=== PATIENT | male | born 1940 | race Caucasian/White ===

== ENCOUNTER 2017-11-12 19:59 | Emergency (ER) | payer MEDICARE, OTHER ==
[~2017-11-12] VITALS: Ht 182.9 cm; Wt 70.8 kg
[~2017-11-12 19:59] MED LIST: HYDROCODONE-AP1 EAC1 PO; HYDROCODONE-AP1 EAC5 PO; LISINOPRIL10 MG PO; PANTOPRAZOLE SO40 MG PO; SENNA-DOCUSATE1 EAC2; TAMSULOSIN HCL0.4 MG PO; TEMAZEPAM15 MG PO; Z ERYTHROMYCIN PO; Z TRIBENZOR; Z.0.ASPIR 8181 MG PO
== END 2017-11-12 21:45 | disposition home or self-care (01) ==
LOC: FSED 19:59
DX: R33.9 Retention of urine, unspecified (principal); N40.1 Benign prostatic hyperplasia with lower urinary tract symptoms; I10 Essential (primary) hypertension; Z85.038 Personal history of other malignant neoplasm of large intestine
CPT/HCPCS: 51700; 81003; 99283

== ENCOUNTER 2018-11-04 08:05 | Emergency (ER) | payer MEDICARE ==
[~2018-11-04] VITALS: Ht 190.5 cm; Wt 70.8 kg
--- OUTSIDE RECORDS SUMMARY | 2018-11-04 08:09 | XMS REPORT | Summary of Care ---
Author Author [facility] [place] Organization [facility] [place] Address Unknown Phone Unavailable Encounter HQ Encntr_alias(FIN) [id number] Date(s): 08/25/16 - 08/25/16 [facility] [place] [address] [place] [address] [phone] Discharge Disposition: Home or Self Care Attending Physician: Jude Tinoco DO Vital Signs No data available for this section Problem List No data available for this section Allergies, Adverse Reactions, Alerts No data available for this section Medications No data available for this section Results No data available for this section Immunizations No data available for this section Procedures No data available for this section Social History No data available for this section Assessment and Plan No data available for this section
--- OUTSIDE RECORDS SUMMARY | 2018-11-04 08:09 | XMS REPORT | Summary of Care ---
Author Author [facility] Organization [facility] Address Unknown Phone Unavailable Encounter LINH Kendall(AILYN) [id number] Date(s): 12/03/17 - 12/03/[address] [facility] [address] [place] [address]- [phone] Encounter Diagnosis Benign prostatic hyperplasia with lower urinary tract symptoms (Final) - 12/12/17 Bladder-neck obstruction (Final) - Other retention of urine (Final) - Dorsalgia, unspecified (Final) - Unspecified asthma, uncomplicated (Final) - Anemia, unspecified (Final) - Diaphragmatic hernia without obstruction or gangrene (Final) - Gastro-esophageal reflux disease without esophagitis (Final) - Essential (primary) hypertension (Final) - Major depressive disorder, single episode, unspecified (Final) - Atherosclerotic heart disease of [place] coronary artery without angina pectoris (Final) - Cardiac arrhythmia, unspecified (Final) - Polyneuropathy, unspecified (Final) - Anxiety disorder, unspecified (Final) - Personal history of other malignant neoplasm of large intestine (Final) - Personal history of antineoplastic chemotherapy (Final) - nursing home (current) use of aspirin (Final) - Personal history of nicotine dependence (Final) - Discharge Disposition: Home or Self Care Attending Physician: Jeremiah Freitas MD Referring Physician: Jeremiah Freitas MD Vital Signs 1 2 3 Most recent to oldest [Reference Range]: 180.34 cm (11/25/17 2:28 PM) Height 136/62 mmHg (12/03/17 1:30 PM) 140/60 mmHg (12/03/17 12:30 PM) 162/90 mmHg *HI* (12/03/17 10:45 AM) Blood Pressure [90-140/60-90 mmHg] 16 BRMIN (12/03/17 10:45 AM) 19 BRMIN (12/03/17 10:30 AM) 20 BRMIN (12/03/17 10:15 AM) Respiratory Rate [14-20 BRMIN] 87 bpm (12/03/17 6:55 AM) 84 bpm (11/25/17 2:29 PM) Peripheral Pulse Rate [60-100 bpm] 69.545 kg (11/25/17 2:28 PM) Weight 21.38 m2 (11/25/17 2:28 PM) Body Mass Index Problem List Condition Effective Dates Status Health Status Informant Anxiety(Confirmed) Active BPH (benign Active prostatic hyperplasia)(Confirm ed) BBB (bundle branch Active block)(Confirmed) SOB (shortness of Active breath)(Confirmed)1 GERD Active (gastroesophageal reflux disease)(Confirmed) HTN Active (hypertension)(Confi rmed) Colon Resolved cancer(Confirmed) 1with anxiety Allergies, Adverse Reactions, Alerts Substance Reaction Severity Status Cipro Active Augmentin Active Medications Align 4 mg, PO, Daily, 0 Refill(s) Start Date: 11/25/17 Status: Ordered ANES albuterol 0.083% inhalation solution 2.49 mg, Route: NEB, Q20Min, Dosing Weight 69.545, kg, PRN Wheezing, Priority: S TAT, Start date: 12/03/17 10:33:00 CDT, Duration: 30 day, Stop date: 01/02/18 10 :32:00 CDT Start Date: 12/03/17 Stop Date: 12/03/17 Status: Discontinued ANES dexamethasone 4 mg, Route: IVP, ONCE, Dosing Weight 69.545, kg, PRN Nausea & Vomiting, Start date: 12/03/17 10:33:00 CDT Start Date: 12/03/17 Stop Date: 12/03/17 Status: Discontinued ANES fentaNYL 25 microgram, Route: IVP, Q5Min, Dosing Weight 69.545, kg, PRN Pain Score 4-6, P riority: Routine, Start date: 12/03/17 10:33:00 CDT, Duration: 4 doses or times, Stop date: Limited # of times Start Date: 12/03/17 Stop Date: 12/03/17 Status: Discontinued ANES fentaNYL 50 microgram, Route: IVP, Q5Min, Dosing Weight 69.545, kg, PRN Pain Score 7-10, Priority: Routine, Start date: 12/03/17 10:33:00 CDT, Duration: 2 doses or times , Stop date: Limited # of times Start Date: 12/03/17 Stop Date: 12/03/17 Status: Discontinued ANES flumazenil 0.2 mg, Route: IVP, PRN, Dosing Weight 69.545, kg, PRN Benzodiazepine Reversal, Initial dose, Start date: 12/03/17 10:33:00 CDT, Duration: 30 day, Stop date: 10:32:00 CDT Start Date: 12/03/17 Stop Date: 12/03/17 Status: Discontinued ANES naloxone 0.4 mg, Route: IVP, Q2MIN, Dosing Weight 69.545, kg, PRN Narcotic Reversal, Star t date: 12/03/17 10:33:00 CDT, Duration: 8 doses or times, Stop date: Limited # of times Start Date: 12/03/17 Stop Date: 12/03/17 Status: Discontinued ANES ondansetron 4 mg, Route: IVP, ONCE, Dosing Weight 69.545, kg, PRN Nausea & Vomiting, Start date: 12/03/17 10:33:00 CDT Start Date: 12/03/17 Stop Date: 12/03/17 Status: Completed ANES oxyCODONE 5 mg, Route: PO, Drug form: LIQ, Q4H, Dosing Weight 69.545, kg, PRN Pain Score 7 -10, Start date: 12/03/17 10:33:00 CDT, Duration: 30 day, Stop date: 01/02/18 10 :32:00 CDT Start Date: 12/03/17 Stop Date: 12/03/17 Status: Discontinued ANES oxyCODONE 2.5 mg, Route: PO, Drug form: LIQ, Q4H, Dosing Weight 69.545, kg, PRN Pain Score 4-6, Start date: 12/03/17 10:33:00 CDT, Duration: 30 day, Stop date: 01/02/18 1 0:32:00 CDT Start Date: 12/03/17 Stop Date: 12/03/17 Status: Discontinued aspirin 81 mg tablet, chewable 81 mg=1 tab, CHEW, Daily, 0 Refill(s) Start Date: 11/25/17 Status: Ordered Bactrim DS 800 mg- 160 mg oral tablet 1 tab, PO, BID, # 14 tab, 0 Refill(s) Start Date: 12/03/17 Stop Date: 12/10/17 Status: Ordered belladonna-opium 16.2 mg-30 mg rectal suppository 1 supp, Route: AZ, Dosing Weight 69.545, kg, Q6H, PRN Bladder Spasm, Start date: 12/03/17 10:18:00 CDT, Duration: 30 day, Stop date: 01/02/18 10:17:00 CDT Start Date: 12/03/17 Stop Date: 12/03/17 Status: Discontinued ePHEDrine (ANES) Route: IV, Drug form: INJ, ONCE, Stop date: 12/03/17 10:08:00 CDT Start Date: 12/03/17 Stop Date: 12/03/17 Status: Completed fentaNYL (ANES) Route: IV, Drug form: INJ, ONCE, Stop date: 12/03/17 10:03:00 CDT Start Date: 12/03/17 Stop Date: 12/03/17 Status: Completed glycopyrrolate (ANES) Route: IV, Drug form: INJ, ONCE, Stop date: 12/03/17 10:15:00 CDT Start Date: 12/03/17 Stop Date: 12/03/17 Status: Completed hydrochlorothiazide-losartan 12.5 mg-100 mg oral tablet 1 tab, PO, Daily, 0 Refill(s) Start Date: 11/25/17 Status: Ordered hydromorphone 0.3 mg, Route: IVP, Q3H, Dosing Weight 69.545, kg, PRN Pain Score 4-6, Start ryan e: 12/03/17 10:18:00 CDT, Duration: 30 day, Stop date: 01/02/18 10:17:00 CDT Start Date: 12/03/17 Stop Date: 12/03/17 Status: Discontinued Lactated Ringers Injection IV (ANES) 1000 mL Route: IV, Total Volume: 1,000, Start date: 12/03/17 9:12:00 CDT, Stop date: 10:12:00 CDT Start Date: 12/03/17 Stop Date: 12/03/17 Status: Completed Lactated Ringers Injection IV 1000 mL 1,000 mL, Rate: 25 ml/hr, Infuse over: 40 hr, Route: IV, Dosing Weight 69.545 kg , Total Volume: 1,000, Start date: 12/03/17 7:41:00 CDT, Duration: 30 day, Stop date: 01/02/18 7:40:00 CDT, 1.87, m2 Start Date: 12/03/17 Stop Date: 12/03/17 Status: Discontinued levofloxacin (ANES) 5 mg Route: IV, Drug form: INJ, Start date: 12/03/17 9:26:00 CDT, Stop date: 12/03/17 10:26:00 CDT Start Date: 12/03/17 Stop Date: 12/03/17 Status: Completed lidocaine (ANES) Route: IV, Drug form: INJ, ONCE, Stop date: 12/03/17 10:03:00 CDT Start Date: 12/03/17 Stop Date: 12/03/17 Status: Completed multivitamin Daily, 0 Refill(s) Start Date: 11/25/17 Status: Ordered neostigmine (ANES) Route: IV, Drug form: INJ, ONCE, Stop date: 12/03/17 10:15:00 CDT Start Date: 12/03/17 Stop Date: 12/03/17 Status: Completed pantoprazole 20 mg oral enteric coated tablet 20 mg=1 tab, PO, Daily, 0 Refill(s) Start Date: 11/25/17 Status: Ordered propofol (ANES) Route: IV, Drug form: INJ, ONCE, Stop date: 12/03/17 10:03:00 CDT Start Date: 12/03/17 Stop Date: 12/03/17 Status: Completed rocuronium (ANES) Route: IV, Drug form: INJ, ONCE, Stop date: 12/03/17 10:03:00 CDT Start Date: 12/03/17 Stop Date: 12/03/17 Status: Completed tamsulosin 0.4 mg oral capsule 0.4 mg=1 cap, PO, Daily, 0 Refill(s) Start Date: 11/25/17 Status: Ordered temazepam 30 mg oral capsule 30 mg=1 cap, PO, Bedtime, PRN Sleep, # 14 cap, 0 Refill(s) Start Date: 11/25/17 Stop Date: 12/09/17 Status: Ordered Zofran ODT 4 mg, Route: PO, Drug form: TABDIS, ONCE, Dosing Weight 69.545, kg, Start date: 12/03/17 11:48:00 CDT, Stop date: 12/03/17 11:48:00 CDT Start Date: 12/03/17 Stop Date: 12/03/17 Status: Completed Results ELECTROLYTES Most recent to 1 oldest [Reference Range]: Sodium Lvl [135-145 138 mEq/L mEq/L] (11/25/17 2:48 PM) Potassium Lvl 4.8 mEq/L [3.5-5.1 mEq/L] (11/25/17 2:48 PM) Chloride Lvl [95-109 101 mEq/L mEq/L] (11/25/17 2:48 PM) CO2 [24-32 mEq/L] 30 mEq/L (11/25/17 2:48 PM) AGAP [10.0-20.0 11.8 mEq/L mEq/L] (11/25/17 2:48 PM) CHEM PANEL Most recent to 1 oldest [Reference Range]: Creatinine Lvl 1.55 mg/dL [0.50-1.40 mg/dL] *HI* (11/25/17 2:48 PM) eGFR 43 mL/min/1.73m2 1 *NA* (11/25/17 2:48 PM) BUN [7-22 mg/dL] 15 mg/dL (11/25/17 2:48 PM) Glucose Lvl [70-99 102 mg/dL mg/dL] *HI* (11/25/17 2:48 PM) Calcium Lvl 9.2 mg/dL [8.5-10.5 mg/dL] (11/25/17 2:48 PM) 1Result Comment: The eGFR is calculated using the CKD-EPI formula. In most young, healthy individuals the eGFR will be >90 mL/min/1.73m2. The eGFR declines with age. An eGFR of 60-89 may be normal in some populations, particularly the elderly, for whom the CKD-EPI formula has not been extensively validated. Use of the eGFR is not recommended in the following populations: Individuals with unstable creatinine concentrations, including patients and those with serious co-morbid conditions. Patients with extremes in muscle mass or diet. The data above are obtained from the National Kidney Disease Education Program ( NKDEP) which additionally recommends that when the eGFR is used in patients with extremes of body mass index for purposes of drug dosing, the eGFR should be mul tiplied by the estimated BMI. URINE AND STOOL Most recent to 1 oldest [Reference Range]: UA Turbidity [Clear] Clear (11/25/17 2:48 PM) UA Color [Yellow] Yellow *NA* (11/25/17 2:48 PM) UA pH [5.0-8.0] 5.0 (11/25/17 2:48 PM) UA Spec Grav 1.011 [<=1.030] (11/25/17 2:48 PM) UA Glucose [Negative Negative mg/dL mg/dL] *NA* (11/25/17 2:48 PM) UA Blood [Negative] Moderate *ABN* (11/25/17 2:48 PM) UA Ketones [Negative Negative mg/dL mg/dL] *NA* (11/25/17 2:48 PM) UA Protein [Negative Negative mg/dL mg/dL] (11/25/17 2:48 PM) UA Urobilinogen <=1.0 mg/dL [0.1-1.0 mg/dL] *NA* (11/25/17 2:48 PM) UA Bili [Negative] Negative *NA* (11/25/17 2:48 PM) UA Leuk Est Large [Negative] *ABN* (11/25/17 2:48 PM) UA Nitrite Negative [Negative] (11/25/17 2:48 PM) UA WBC [0-5 /HPF] 11 /HPF *HI* (11/25/17 2:48 PM) UA RBC [0-2 /HPF] 4 /HPF *HI* (11/25/17 2:48 PM) UA Sq Epi [Few /LPF] Occasional /LPF *NA* (11/25/17 2:48 PM) HEMATOLOGY Most recent to 1 oldest [Reference Range]: WBC [3.7-10.4 K/CMM] 7.5 K/CMM (11/25/17 2:48 PM) RBC [4.70-6.10 3.66 M/CMM M/CMM] *LOW* (11/25/17 2:48 PM) Hgb [14.0-18.0 g/dL] 11.3 g/dL *LOW* (11/25/17 2:48 PM) Hct [42.0-54.0 %] 33.1 % *LOW* (11/25/17 2:48 PM) MCV [80.0-94.0 fL] 90.5 fL (11/25/17 2:48 PM) MCH [27.0-31.0 pg] 30.9 pg (11/25/17 2:48 PM) MCHC [32.0-36.0 34.2 g/dL g/dL] (11/25/17 2:48 PM) RDW [11.5-14.5 %] 14.0 % (11/25/17 2:48 PM) MPV [7.4-10.4 fL] 8.4 fL (11/25/17 2:48 PM) Platelet [133-450 367 K/CMM K/CMM] (11/25/17 2:48 PM) Segs [45.0-75.0 %] 61.8 % (11/25/17 2:48 PM) Lymphocytes 23.2 % [20.0-40.0 %] (11/25/17 2:48 PM) Monocytes [2.0-12.0 12.4 % %] *HI* (11/25/17 2:48 PM) Eosinophils [0.0-4.0 1.2 % %] (11/25/17 2:48 PM) Basophils [0.0-1.0 1.4 % %] *HI* (11/25/17 2:48 PM) Neutrophils # 4.6 K/CMM [1.5-8.1 K/CMM] (11/25/17 2:48 PM) Lymphocytes # 1.7 K/CMM [1.0-5.5 K/CMM] (11/25/17 2:48 PM) Monocytes # [0.0-0.8 0.9 K/CMM K/CMM] *HI* (11/25/17 2:48 PM) Eosinophils # 0.1 K/CMM [0.0-0.5 K/CMM] (11/25/17 2:48 PM) Basophils # [0.0-0.2 0.1 K/CMM K/CMM] (11/25/17 2:48 PM) PT [12.0-14.7 14.1 seconds seconds] (11/25/17 2:48 PM) INR [0.85-1.17] 1.09 (11/25/17 2:48 PM) PTT [22.9-35.8 39.6 seconds seconds] *HI* (11/25/17 2:48 PM) Microbiology Reports TEST: Culture: Urine STATUS: Auth (Verified) BODY SITE: SOURCE: Urine, Clean Catch COLLECTED DATE/TIME: 11/25/17 2:48 PM FINAL REPORT <10,000 CFU/mL Skin Brigette Immunizations No data available for this section Procedures Procedure Date Related Diagnosis Body Site Status Appendectomy 2010 Completed Cholecystectomy 2010 Completed Colon operation 2010 Completed CTR - Carpal tunnel release Completed Operation Completed Tonsillectomy Completed Social History Social History Type Response Alcohol Past Smoking Status Former smoker; Type: Cigarettes; Exposure to Tobacco Smoke None; Cigarette Smoking Last 365 Days No; Reg Smoking Cessation Counseling No entered on: 12/03/17 Assessment and Plan No data available for this section
--- OUTSIDE RECORDS SUMMARY | 2018-11-04 08:09 | XMS REPORT | Summary of Care ---
Author Author [facility] [place] Organization [facility] [place] Address Unknown Phone Unavailable Encounter HQ Encntr_alifreida(FIN) [id number] Date(s): 03/10/17 - 03/10/17 [facility] [place] [address] [place] [address] [phone] Final: Radiculopathy, lumbar region Final: Spinal stenosis, lumbar region without neurogenic claudication Final: Other intervertebral disc degeneration, lumbar region Discharge Disposition: Home or Self Care Attending Physician: Bettina Daugherty MD Vital Signs No data available for this [...]
--- OUTSIDE RECORDS SUMMARY | 2018-11-04 08:09 | XMS REPORT | Summary of Care ---
Author Author [facility] [place] Organization [facility] Address Unknown Phone Unavailable Encounter HQ Encntr_alias(FIN) [id number] Date(s): 12/18/14 - 12/18/14 [facility] [address] [place] [id number] [phone] Discharge Disposition: Home Attending Physician: Jeremiah Freitas MD Vital Signs No data available for [...]
--- OUTSIDE RECORDS SUMMARY | 2018-11-04 08:09 | XMS REPORT | Continuity of Care Document ---
Author Author [facility] Address Unknown Phone Unavailable Care Team Providers Care Behavioral Health Specialist Name Role Phone [employer] Unavailable Unavailable Problems Problem Status Onset Date Classification Date Reported Comments Source Benign prostatic hyperplasia with lower urinary tract symptoms 12/13/2017 06/22/2018 [facility] UNK Active 11/17/2017 [facility] M60.9 - "MYOSITIS, UNSPECIFIED" Active 08/20/2016 [facility] 788.20 - RETENTION OF UR 600.01 - BPH W Active 11/21/2014 [facility] Final: Radiculopathy, lumbar region 03/13/2017 [facility] Final: Spinal stenosis, lumbar region without neurogenic claudication 03/13/2017 [facility] Final: Other intervertebral disc degeneration, lumbar region 03/13/2017 [facility] Bladder-neck obstruction 06/22/2018 [facility] Other retention of urine 06/22/2018 [facility] Dorsalgia, unspecified 06/22/2018 [facility] Unspecified asthma, uncomplicated 06/22/2018 [facility] Anemia, unspecified 06/22/2018 [facility] Diaphragmatic hernia without obstruction or gangrene 06/22/2018 [facility] Gastro-esophageal reflux disease without esophagitis 06/22/2018 [facility] Essential hypertension 06/22/2018 [facility] Major depressive disorder, single episode, unspecified 06/22/2018 [facility] 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 06/22/2018 [facility] Cardiac arrhythmia, unspecified 06/22/2018 [facility] Polyneuropathy, unspecified 06/22/2018 [facility] Anxiety disorder, unspecified 06/22/2018 [facility] Personal history of other malignant neoplasm of large intestine 06/22/2018 [facility] Personal history of antineoplastic chemotherapy 06/22/2018 [facility] long term care social worker use of aspirin 06/22/2018 [facility] Personal history of nicotine dependence 06/22/2018 [facility] Anxiety Active Problem 06/22/2018 [facility] BPH (Confirmed) Active Problem 06/22/2018 [facility] BBB (Confirmed) Active Problem 06/22/2018 [facility] SOB (Confirmed)1 Active Problem 06/22/2018 with anxiety [facility] GERD (Confirmed) Active Problem 06/22/2018 [facility] HTN (Confirmed) Active Problem 06/22/2018 [facility] Colon cancer Resolved Problem 06/22/2018 [facility] Medications Medication Details Route Status Patient Instructions Ordering Provider Order Date Source Zofrhung ODT 4 mg, Route: PO, Drug form: TABDIS, ONCE, Dosing Weight 69.545, kg, Start date: 12/03/17 11:48:00 CDT, Stop date: 12/03/17 11:48:00 CDT Inactive 2017 [facility] Dexamethasone 4 mg, Route: IVP, ONCE, Dosing Weight 69.545, kg, PRN Nausea & Vomiting, Start date: 12/03/17 10:33:00 CDT Inactive 2017 [facility] Ondansetron 4 mg, Route: IVP, ONCE, Dosing Weight 69.545, kg, PRN Nausea & Vomiting, Start date: 12/03/17 10:33:00 CDT Inactive 2017 [facility] Oxycodone 5 mg, Route: PO, Drug form: LIQ, Q4H, Dosing Weight 69.545, kg, PRN Pain Score 7-10, Start date: 12/03/17 10:33:00 CDT, Duration: 30 day, Stop date: 01/02/18 10:32:00 CDT Inactive 2017 [facility] Fentanyl 25 microgram, Route: IVP, Q5Min, Dosing Weight 69.545, kg, PRN Pain Score 4-6, Priority: Routine, Start date: 12/03/17 10:33:00 CDT, Duration: 4 doses or times, Stop date: Limited # of times Inactive 2017 [facility] Albuterol 0.83 MG/ML Inhalant Solution 2.49 mg, Route: NEB, Q20Min, Dosing Weight 69.545, kg, PRN Wheezing, Priority: STAT, Start date: 12/03/17 10:33:00 CDT, Duration: 30 day, Stop date: 01/02/18 10:32:00 CDT Inactive 2017 [facility] Naloxone 0.4 mg, Route: IVP, Q2MIN, Dosing Weight 69.545, kg, PRN Narcotic Reversal, Start date: 12/03/17 10:33:00 CDT, Duration: 8 doses or times, Stop date: Limited # of times Inactive 2017 [facility] Flumazenil 0.2 mg, Route: IVP, PRN, Dosing Weight 69.545, kg, PRN Benzodiazepine Reversal, Initial dose, Start date: 12/03/17 10:33:00 CDT, Duration: 30 day, Stop date: 01/02/18 10:32:00 CDT Inactive 2017 [facility] Sulfamethoxazole 800 MG / Trimethoprim 160 MG Oral Tablet [Bactrim] 1 tab, PO, BID, # 14 tab, 0 Refill(s) Active 2017 [facility] Hydromorphone 0.3 mg, Route: IVP, Q3H, Dosing Weight 69.545, kg, PRN Pain Score 4-6, Start date: 12/03/17 10:18:00 CDT, Duration: 30 day, Stop date: 01/02/18 10:17:00 CDT Inactive 2017 [facility] Belladonna Alkaloids 16.2 MG / Opium 30 MG Rectal Suppository 1 supp, Route: MD, Dosing Weight 69.545, kg, Q6H, PRN Bladder Spasm, Start date: 12/03/17 10:18:00 CDT, Duration: 30 day, Stop date: 01/02/18 10:17:00 CDT Inactive 2017 [facility] neostigmine (ANES) Route: IV, Drug form: INJ, ONCE, Stop date: 12/03/17 10:15:00 CDT Inactive 2017 [facility] glycopyrrolate (ANES) Route: IV, Drug form: INJ, ONCE, Stop date: 12/03/17 10:15:00 CDT Inactive 2017 [facility] ePHEDrine (ANES) Route: IV, Drug form: INJ, ONCE, Stop date: 12/03/17 10:08:00 CDT Inactive 2017 [facility] rocuronium (ANES) Route: IV, Drug form: INJ, ONCE, Stop date: 12/03/17 10:03:00 CDT Inactive 2017 [facility] propofol (ANES) Route: IV, Drug form: INJ, ONCE, Stop date: 12/03/17 10:03:00 CDT Inactive 2017 [facility] lidocaine (ANES) Route: IV, Drug form: INJ, ONCE, Stop date: 12/03/17 10:03:00 CDT Inactive 2017 [facility] fentaNYL (ANES) Route: IV, Drug form: INJ, ONCE, Stop date: 12/03/17 10:03:00 CDT Inactive 2017 [facility] levofloxacin (ANES) 5 mg Route: IV, Drug form: INJ, Start date: 12/03/17 9:26:00 CDT, Stop date: 12/03/17 10:26:00 CDT Inactive 2017 [facility] Lactated Ringers Injection IV (ANES) 1000 mL Route: IV, Total Volume: 1,000, Start date: 12/03/17 9:12:00 CDT, Stop date: 12/03/17 10:12:00 CDT Inactive 2017 [facility] Calcium Chloride 0.0014 MEQ/ML / Potassium Chloride 0.004 MEQ/ML / Sodium Chloride 0.103 MEQ/ML / Sodium Lactate 0.028 MEQ/ML Injectable Solution 1,000 mL, Rate: 25 ml/hr, Infuse over: 40 hr, Route: IV, Dosing Weight 69.545 kg, Total Volume: 1,000, Start date: 12/03/17 7:41:00 CDT, Duration: 30 day, Stop date: 01/02/18 7:40:00 CDT, 1.87, m2 Inactive 2017 [facility] tamsulosin 0.4 mg oral capsule 0.4 mg=1 cap, PO, Daily, 0 Refill(s) Active 11/25/2017 [facility] Hydrochlorothiazide 12.5 MG / Losartan Potassium 100 MG Oral Tablet 1 tab, PO, Daily, 0 Refill(s) Active 11/25/2017 [facility] Aspirin 81 MG Chewable Tablet 81 mg=1 tab, CHEW, Daily, 0 Refill(s) Active 11/25/2017 [facility] pantoprazole 20 mg oral enteric coated tablet 20 mg=1 tab, PO, Daily, 0 Refill(s) Active 11/25/2017 [facility] temazepam 30 mg oral capsule 30 mg=1 cap, PO, Bedtime, PRN Sleep, # 14 cap, 0 Refill(s) Active 11/25/2017 [facility] multivitamin Daily, 0 Refill(s) Active 11/25/2017 [facility] Align 4 mg, PO, Daily, 0 Refill(s) Active 11/25/2017 [facility] Olmesartan Med/Amlodipine/Hctz (Tribenzor 40-5-12.5 Mg Tablet) 1 Each Tablet, Daily Active 08/13/2016 [facility] Sennosides/Docusate Sodium (Senna-Docusate Sodium Tablet) 1 Each Tablet, 5 2 At Bedtime Active 08/13/2016 [facility] Erythromycin Base (Erythromycin) 500 Mg Tablet, 500 Mg Oral Twice A Day Active 09/04/2011 [facility] Hydrocodone Bit/Acetaminophen (Hydrocodone-Apap 10-650 Mg Tab) 1 Each Tablet, 1 Each Oral Active 09/04/2011 [facility] Hydrocodone Bit/Acetaminophen (Hydrocodone-Apap 10-325 Tablet) 1 Each Tablet, 1 Each Oral Three Times A Day Active 09/04/2011 [facility] Aspirin (Aspir 81) 81 Mg Tablet. Daily Active [facility] Lisinopril 10 Mg Tablet Daily Active [facility] Pantoprazole Sodium (Protonix) 40 Mg Tablet. Daily Active [facility] Tamsulosin Hcl 0.4 Mg Cap.er.24h Daily Active [facility] Temazepam 15 Mg Capsule Daily Active [facility] Allergies, Adverse Reactions, Alerts Substance Category Reaction Severity Reaction type Status Date Reported Comments Source Ciprofloxacin NAUSEA Mild Allergy to Substance Active 08/13/2016 [facility] Cipro Assertion Drug allergy Active [facility] Augmentin Assertion Drug allergy Active [facility] Immunizations No Data Provided for This Section Results Order Name Results Value Reference Range Date Interpretation Comments Source CHEM PANEL eGFR 43 11/25/2017 Result Comment: The eGFR is calculated using the [...] from the National Kidney Disease Education Program (NKDEP) which additionally recommends that when the eGFR is used in patients with extremes of body mass index for purposes of drug dosing, the eGFR should be multiplied by the estimated BMI. [facility] CHEM PANEL Chloride Lvl 101 95 - 109 11/25/2017 [facility] CHEM PANEL Calcium Lvl 9.2 8.5 - 10.5 11/25/2017 [facility] CHEM PANEL CO2 30 24 - 32 11/25/2017 [facility] CHEM PANEL Potassium Lvl 4.8 3.5 - 5.1 11/25/2017 [facility] CHEM PANEL Sodium Lvl 138 135 - 145 11/25/2017 [facility] CHEM PANEL BUN 15 7 - 22 11/25/2017 [facility] CHEM PANEL Glucose Lvl 102 70 - 99 11/25/2017 [facility] CHEM PANEL Creatinine Lvl 1.55 0.50 - 1.40 11/25/2017 [facility] CHEM PANEL AGAP 11.8 10.0 - 20.0 11/25/2017 [facility] HEMATOLOGY PTT 39.6 22.9 - 35.8 11/25/2017 [facility] HEMATOLOGY PT 14.1 12.0 - 14.7 11/25/2017 [facility] HEMATOLOGY INR 1.09 0.85 - 1.17 11/25/2017 [facility] HEMATOLOGY Basophils 1.4 0.0 - 1.0 11/25/2017 [facility] HEMATOLOGY Lymphocytes # 1.7 1.0 - 5.5 11/25/2017 [facility] HEMATOLOGY Neutrophils # 4.6 1.5 - 8.1 11/25/2017 [facility] Monocytes # 0.9 0.0 - 0.8 11/25/2017 [facility] HEMATOLOGY Segs 61.8 45.0 - 75.0 11/25/2017 [facility] Basophils # 0.1 0.0 - 0.2 11/25/2017 [facility] HEMATOLOGY Eosinophils 1.2 0.0 - 4.0 11/25/2017 [facility] HEMATOLOGY Monocytes 12.4 2.0 - 12.0 11/25/2017 [facility] HEMATOLOGY Eosinophils # 0.1 0.0 - 0.5 11/25/2017 [facility] HEMATOLOGY Lymphocytes 23.2 20.0 - 40.0 11/25/2017 [facility] MPV 8.4 7.4 - 10.4 11/25/2017 [facility] HEMATOLOGY RDW 14.0 11.5 - 14.5 11/25/2017 [facility] HEMATOLOGY Platelet 367 133 - 450 11/25/2017 [facility] MCV 90.5 80.0 - 94.0 11/25/2017 [facility] MCHC 34.2 32.0 - 36.0 11/25/2017 [facility] MCH 30.9 27.0 - 31.0 11/25/2017 [facility] HEMATOLOGY RBC 3.66 4.70 - 6.10 11/25/2017 [facility] WBC 7.5 3.7 - 10.4 11/25/2017 [facility] Hgb 11.3 14.0 - 18.0 11/25/2017 [facility] Hct 33.1 42.0 - 54.0 11/25/2017 [facility] URINE AND STOOL UA RBC 4 0 - 2 11/25/2017 [facility] URINE AND STOOL UA Urobilinogen <=1.0 mg/dL 0.1 - 1.0 11/25/2017 [facility] URINE AND STOOL UA Leuk Est Large *ABN* (11/25/17 2:48 PM) Negative 11/25/2017 [facility] URINE AND STOOL UA Sq Epi Occasional /LPF Few /LPF 11/25/2017 [facility] URINE AND STOOL UA WBC 11 0 - 5 11/25/2017 [facility] URINE AND STOOL UA Turbidity Clear (11/25/17 2:48 PM) Clear 11/25/2017 [facility] URINE AND STOOL UA Color Yellow *NA* (11/25/17 2:48 PM) Yellow 11/25/2017 [facility] URINE AND STOOL UA Spec Grav 1.011 <=1.030 11/25/2017 [facility] URINE AND STOOL UA pH 5.0 5.0 - 8.0 11/25/2017 [facility] URINE AND STOOL UA Nitrite Negative (11/25/17 2:48 PM) Negative 11/25/2017 [facility] URINE AND STOOL UA Blood Moderate *ABN* (11/25/17 2:48 PM) Negative 11/25/2017 [facility] URINE AND STOOL UA Bili Negative *NA* (11/25/17 2:48 PM) Negative 11/25/2017 [facility] URINE AND STOOL UA Ketones Negative mg/dL Negative mg/dL 11/25/2017 [facility] URINE AND STOOL UA Protein Negative mg/dL Negative mg/dL 11/25/2017 [facility] URINE AND STOOL UA Glucose Negative mg/dL Negative mg/dL 11/25/2017 [facility] Culture: Urine <10,000 CFU/mL Skin Brigette 11/25/2017 [facility] Pathology Reports No Data Provided for This Section Diagnostic Reports Report Value Date Source Spine lumbar wo contrast MRI Spine lumbar wo contrast MRI 03/10/2017 4:36 PM [employer] 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 TECHNIQUE: Sagittal T1, sagittal T2 with fat saturation, axial T1 and axial T2 images were obtained. No intravenous gadolinium was given. FINDINGS: The conus medullaris terminates at the L2 level. T12 left posterior vertebral body margin 9.6 mm lesion with hyperintense STIR signal, hypointense T1 signal is present. T12-L1: Unremarkable. L1-L2: Unremarkable. L2-L3: Right extra foraminal annular fissure is present. Right foraminal disc osteophyte complex with mild right foraminal stenosis. No central canal stenosis. L3-L4: Scattered annular fissures are present. 2 mm disc bulge is seen without significant central canal stenosis. Mild right foraminal stenosis due to disc osteophyte complex encroachment. L4-L5: Scattered annular fissures are present. 2 mm posterior disc osteophyte complex without significant thecal sac stenosis. Mild bilateral foraminal stenosis due to disc osteophyte complex encroachment without significant mass effect on the exiting L4 nerve roots. L5-S1: Posterior annular fissure with 3 mm posterior disc osteophyte complex and mild right foraminal stenosis. No significant thecal sac stenosis. IMPRESSION: 1. Several levels of disc degenerative disease and spondylosis without significant central canal stenosis. L2-L3 and L3-L4 mild right foraminal stenosis, L4-L5 mild bilateral foraminal stenosis. 2. T12 vertebral body lesion may represent atypical osseous hemangioma. Osseous metastasis is less likely. 4-6 month follow-up MRI may be obtained to assess stability. 03/10/2017 [facility] Spine cervical 2 or 3 view DX Exam: Cervical spine x-ray, 3 views Reason for Exam: M60.9 Myositis, unspecified - M60.9 Myositis, unspecified Comparison Exam: None Discussion: On lateral view, the cervical spine is seen from the C1 vertebral body level down through the C7/T1 junction. Vertebral body heights are maintained. Mild lordosis is seen of the cervical spine. Mild grade 1 retrolisthesis seen of C6 on C7. Advanced degenerative disc disease seen within the lower cervical spine. No suspicious osteoblastic or osteolytic lesions. Prevertebral soft tissue is within normal limits. On oblique views, the neuroforamina are unremarkable. Lateral masses of C1 and dens of C2 appear intact. Please note that a cervical spine x-ray cannot rule out ligamentous injuries or spinal cord abnormalities. Visualized portions of the lung apices are unremarkable. Impression: 1. Vertebral body heights are maintained. Mild lordosis is seen of the cervical spine. Mild grade 1 retrolisthesis seen of C6 on C7. Advanced degenerative disc disease seen within the lower cervical spine. 08/25/2016 [facility] Abdomen/Pelvis wo IV contrast CT EXAM: Abdomen/Pelvis wo contrast CT HISTORY: 788.50, 600.01 / retention of urine COMPARISON: None TECHNIQUE: Multiple computerized axial tomographic images were obtained of the abdomen and pelvis from the superior pole of the kidneys through the bladder base without IV or enteric contrast as per renal calculus protocol. FINDINGS: The lung bases are clear. There is no evidence of renal or ureteral calculus or obstruction. Limited evaluation of the visualized liver, spleen, adrenal glands and pancreas is grossly unremarkable, though not considered diagnostic quality due to specialized protocol. The bowel is nondilated. There is moderate atherosclerotic disease of the aorta without aneurysm visualized. The urinary bladder is unremarkable. The prostate does not appear to be significantly enlarged. No abdominal/pelvic fluid is seen. The bones show no acute or aggressive abnormality. IMPRESSION: No evidence of urinary calculus. 12/18/2014 [facility] Consultation Notes No Data Provided for This Section Discharge Summaries No Data Provided for This Section History and Physicals No Data Provided for This Section Vital Signs Vital Sign Value Date Comments Source Systolic (mm Hg) 136 2017 [facility] Diastolic (mm Hg) 62 2017 [facility] Systolic (mm Hg) 140 2017 [facility] Diastolic (mm Hg) 60 2017 [facility] Systolic (mm Hg) 162 2017 [facility] Diastolic (mm Hg) 90 2017 [facility] Respitory Rate 16 2017 [facility] Respitory Rate 19 2017 [facility] Respitory Rate 20 2017 [facility] Heart Rate 87 2017 [facility] Heart Rate 84 11/25/2017 [facility] BMI Calculated 21.38 11/25/2017 [facility] Height 180.34 cm 11/25/2017 [facility] Weight 69.545 11/25/2017 [facility] Encounters Location Location Details Encounter Type Encounter Number Reason For Visit Attending Provider ADM Date DC Date Status Source [facility] [place] [facility] [id number] Jeremiah Freitas 12/18/2014 12/19/2014 [facility] [place] [facility] [place] [facility] [id number] [facility] 08/25/2016 08/26/2016 [facility] [place] [facility] [place] [facility] [id number] Bettina Daugherty 03/10/2017 03/11/2017 [facility] [place] Departed Emergency Room [id number] DOROTHEA BROOKS MD 11/12/2017 11/12/2017 [id number] [id number] [facility] Out[facility] [id number] [facility] 11/07/[address] [facility] Procedures Procedure Code Date Perfomer Comments Source Appendectomy [id number] 04/12/2010 [facility] Cholecystectomy [id number] 04/12/2010 [facility] Colon operation [id number] 04/12/2010 [facility] CTR - Carpal tunnel release 86378674 [facility] Operation [id number] [facility] Tonsillectomy 084712867 [facility] Assessment and Plan No Data Provided for This Section Plan of Care Plan of Care Date Source Discharge Date 11/12/17 9:45pm Disposition HOME, SELF-CARE Condition at Discharge Stable Instructions/Education Provided Urinary Retention Prescriptions See Medication Section Referrals Your urologist Note: Follow up in 2 days Additional Instructions/Education Return to ER if you have worsening symptoms, decreased urine output, fever, abdominal pain, vomiting 11/12/2017 [facility] Social History Social History Date Source Social History TypeResponse Alcohol Past Smoking Status Former smoker; Type: Cigarettes; Exposure to Tobacco Smoke None; Cigarette Smoking Last 365 Days No; Reg Smoking Cessation Counseling No entered on: 12/03/17 11/25/2017 [facility] Social History Problem Response Recorded Date/Time Onset Date Status Hx Psychiatric Problems No 08/23/2011 6:00pm Not Applicable Not Applicable Hx Alcohol Use Y - OCCASIONAL 08/23/2011 6:00pm Not Applicable Not Applicable 11/12/2017 [facility] No data available for this section 03/11/2017 [facility] Family History No Data Provided for This Section Advance Directives Order Name Results Value Date Source Advance Directives Advance Directives Directive Response Recorded Date/Time Does the patient have an advance directive? Yes 08/23/11 6:00pm If yes, is advance directive on file with [facility]? Yes 08/13/16 6:25pm If not on file with [facility] will patient provide a copy? Yes 08/23/11 6:00pm Do you have a Directive to Physician? 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 No 11/12/17 9:50pm Do you have any special needs we should be aware of? No 11/12/17 9:50pm Do you have a support person here with you today? Yes 11/12/17 9:50pm Did patient receive Notice of Privacy Practices? Yes 11/12/17 9:50pm Did patient receive patient rights and responsibilities? Yes 11/12/17 9:50pm 11/12/2017 [facility] Functional Status No Data Provided for This Section
[2018-11-04 09:58] LABS: BILIRUBIN,URINE NEGATIVE (NEGATIVE); CLARITY,URINE CLEAR (CLEAR); COLOR,URINE YELLOW (YELLOW); KETONES,URINE NEGATIVE (NEGATIVE); LEUKOCYTE ESTERASE ,URINE LARGE (NEGATIVE); NITRITE,URINE POSITIVE (NEGATIVE); PROTEIN,URINE DIPSTICK 1+ (NEGATIVE); URINE UROBILINOGEN 2 mg/dL (0.2 - 1)
[2018-11-04 10:10] LABS: BACTERIA,URINE MODERATE /HPF; EPITHELIAL CELLS,URINE RARE /LPF; RBC,URINE 0-5 /HPF (0-5)
[2018-11-04] MEDS ORDERED: KEFLEX500 MG PO (10:42)
[2018-11-04] MEDS ORDERED: NEOMYCIN/POLYMYX/BACITR OINT 0.9 GM PKT ONE ×2 (20:20→21:28)
[2018-11-29] MEDS ORDERED: METOPROLOL TART50 MG PO (07:29)
[2018-11-29] MEDS ORDERED: KEFLEX500 MG PO (07:29)
[2018-12-27] MEDS ORDERED: FLOMAX0.4 MG PO (15:00)
[2018-12-27] MEDS ORDERED: XARELTO10 MG (15:00)
[2018-12-30] MEDS ORDERED: COLACE100 MG PO (06:28)
[2018-12-30] MEDS ORDERED: METOPROLOL TART50 MG PO (06:28)
== END 2018-11-04 12:28 | disposition home or self-care (01) ==
LOC: ER 08:05
DX: N30.91 Cystitis, unspecified with hematuria (principal)
CPT/HCPCS: 81001; 87086; 87186; 99283

== ENCOUNTER 2018-11-26 19:10 | Inpatient (IN) | payer MEDICARE ==
[~2018-11-26] VITALS: Ht 180.3 cm; Wt 66.7 kg
[~2018-11-26 19:10] MED LIST changes: +KEFLEX500 MG PO
--- OUTSIDE RECORDS SUMMARY | 2018-11-26 19:14 | XMS REPORT | Summary of Care ---
Author Author [facility] [place] Organization [facility] Urology [facility] Address Unknown Phone Unavailable Encounter HQ Encntr_alias(FIN) [id number] Date(s): 11/07/18 - 11/07/18 [facility] U[facility] [address] [place] [address] 2 [phone] Attending Physician: Jeremiah Freitas MD Vital Signs No data available for this section Problem List Condition Effective Dates Status Health Status Informant Anxiety(Confirmed) Active BPH (benign Active prostatic hyperplasia)(Confirm ed) BBB (bundle branch Active block)(Confirmed) SOB (shortness of Active breath)(Confirmed)1 GERD Active (gastroesophageal reflux disease)(Confirmed) HTN Active (hypertension)(Confi rmed) Colon Resolved cancer(Confirmed) 1with anxiety Allergies, Adverse Reactions, Alerts Substance Reaction Severity Status Cipro Active Augmentin Active Medications No data available for this section [...] Reg Smoking Cessation Counseling No entered on: 11/02/18 Assessment and Plan No data available for this section
--- OUTSIDE RECORDS SUMMARY | 2018-11-26 19:14 | XMS REPORT | Continuity of Care Document ---
Author Author [employer] Address Unknown Phone Unavailable Care Team Providers Care News Assistant Name Role Phone [employer] Information [facility] Unavailable Unavailable Problems Problem Status Onset Date Classification Date Reported Comments Source Benign prostatic hyperplasia with lower urinary tract symptoms 12/13/2017 06/22/2018 [facility] UNK Active 11/17/2017 [facility] M60.9 - "MYOSITIS, UNSPECIFIED" Active 08/20/2016 [facility] 788.20 - RETENTION OF UR 600.01 - BPH W Active 11/21/2014 [facility] Final: Radiculopathy, lumbar region 03/13/2017 [facility] Final: Spinal stenosis, lumbar region without neurogenic claudication 03/13/2017 [facility] Final: Other intervertebral disc degeneration, lumbar region 03/13/2017 [facility] Bladder-neck obstruction 06/22/2018 [facility] Other retention of urine 06/22/2018 [facility] Dorsalgia, unspecified 06/22/2018 [facility] Unspecified asthma, uncomplicated 06/22/2018 [facility] Anemia, unspecified 06/22/2018 [facility] Diaphragmatic hernia without obstruction or gangrene 06/22/2018 [facility] Gastro-esophageal reflux disease without esophagitis 06/22/2018 [facility] Essential hypertension 06/22/2018 [facility] Major depressive disorder, single episode, unspecified 06/22/2018 [facility] Atherosclerotic heart disease of [place] coronary artery without angina pectoris 06/22/2018 [facility] Cardiac arrhythmia, unspecified 06/22/2018 [facility] Polyneuropathy, unspecified 06/22/2018 [facility] Anxiety disorder, unspecified 06/22/2018 [facility] Personal history of other malignant neoplasm of large intestine 06/22/2018 [facility] Personal history of antineoplastic chemotherapy 06/22/2018 [facility] 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 06/22/2018 [facility] Personal history of nicotine dependence 06/22/2018 [facility] Anxiety Active Problem 06/22/2018 [facility] BPH (Confirmed) Active Problem 06/22/2018 [facility] BBB (Confirmed) Active Problem 06/22/2018 [facility] SOB (Confirmed)1 Active Problem 06/22/2018 with anxiety [facility] GERD (Confirmed) Active Problem 06/22/2018 [facility] HTN (Confirmed) Active Problem 06/22/2018 [facility] Colon cancer Resolved Problem 06/22/2018 [facility] Anxiety (finding) Active Problem 11/09/2018 [facility] Benign prostatic hyperplasia (disorder) Active Problem 11/09/2018 [facility] Bundle branch block (disorder) Active Problem 11/09/2018 [facility] Dyspnea (finding) Active Problem 11/09/2018 with anxiety [facility] Gastroesophageal reflux disease (disorder) Active Problem 11/09/2018 [facility] Hypertensive disorder, systemic arterial (disorder) Active Problem 11/09/2018 [facility] Malignant tumor of colon (disorder) Resolved Problem 11/09/2018 [facility] Medications Medication Details Route Status Patient Instructions Ordering Provider Order Date Source Tamsulosin hydrochloride 0.4 MG Oral Capsule [Flomax] 0.4 mg=1 cap, PO, Daily, # 30 cap, 0 Refill(s), Pharmacy: [facility] #[id number] Active 11/04/2018 [facility] Phenazopyridine hydrochloride 100 MG Oral Tablet [Pyridium] 100 mg=1 tab, PO, TID, PRN Dysuria, X 3 day, # 10 tab, 0 Refill(s), Pharmacy: [facility] #[id number] Active 11/04/2018 [facility] doxycycline hyclate 100 MG Oral Capsule 100 mg=1 cap, PO, BID, 0 Refill(s) Active 11/02/2018 [facility] Zofran ODT 4 mg, Route: PO, Drug form: TABDIS, ONCE, Dosing Weight 69.545, kg, Start date: 12/03/17 11:48:00 CDT, Stop date: 12/03/17 11:48:00 CDT Inactive 2017 [facility] Dexamethasone 4 mg, Route: IVP, ONCE, Dosing Weight 69.545, kg, PRN Nausea & Vomiting, Start date: 12/03/17 10:33:00 CDT Inactive 2017 [facility] Ondansetron 4 mg, Route: IVP, ONCE, Dosing Weight 69.545, kg, PRN Nausea & Vomiting, Start date: 12/03/17 10:33:00 CDT Inactive 2017 [facility] Oxycodone 5 mg, Route: PO, Drug form: LIQ, Q4H, Dosing Weight 69.545, kg, PRN Pain Score 7-10, Start date: 12/03/17 10:33:00 CDT, Duration: 30 day, Stop date: 01/02/18 10:32:00 CDT Inactive 2017 [facility] Fentanyl 25 microgram, Route: IVP, Q5Min, Dosing Weight 69.545, kg, PRN Pain Score 4-6, Priority: Routine, Start date: 12/03/17 10:33:00 CDT, Duration: 4 doses or times, Stop date: Limited # of times Inactive 2017 [facility] Albuterol 0.83 MG/ML Inhalant Solution 2.49 mg, Route: NEB, Q20Min, Dosing Weight 69.545, kg, PRN Wheezing, Priority: STAT, Start date: 12/03/17 10:33:00 CDT, Duration: 30 day, Stop date: 01/02/18 10:32:00 CDT Inactive 2017 [facility] Naloxone 0.4 mg, Route: IVP, Q2MIN, Dosing Weight 69.545, kg, PRN Narcotic Reversal, Start date: 12/03/17 10:33:00 CDT, Duration: 8 doses or times, Stop date: Limited # of times Inactive 2017 [facility] Flumazenil 0.2 mg, Route: IVP, PRN, Dosing Weight 69.545, kg, PRN Benzodiazepine Reversal, Initial dose, Start date: 12/03/17 10:33:00 CDT, Duration: 30 day, Stop date: 01/02/18 10:32:00 CDT Inactive 2017 [facility] Sulfamethoxazole 800 MG / Trimethoprim 160 MG Oral Tablet [Bactrim] 1 tab, PO, BID, # 14 tab, 0 Refill(s) Active 2017 [facility] Hydromorphone 0.3 mg, Route: IVP, Q3H, Dosing Weight 69.545, kg, PRN Pain Score 4-6, Start date: 12/03/17 10:18:00 CDT, Duration: 30 day, Stop date: 01/02/18 10:17:00 CDT Inactive 2017 [facility] Belladonna Alkaloids 16.2 MG / Opium 30 MG Rectal Suppository 1 supp, Route: OH, Dosing Weight 69.545, kg, Q6H, PRN Bladder Spasm, Start date: 12/03/17 10:18:00 CDT, Duration: 30 day, Stop date: 01/02/18 10:17:00 CDT Inactive 2017 [facility] neostigmine (ANES) Route: IV, Drug form: INJ, ONCE, Stop date: 12/03/17 10:15:00 CDT Inactive 2017 [facility] glycopyrrolate (ANES) Route: IV, Drug form: INJ, ONCE, Stop date: 12/03/17 10:15:00 CDT Inactive 2017 [facility] ePHEDrine (ANES) Route: IV, Drug form: INJ, ONCE, Stop date: 12/03/17 10:08:00 CDT Inactive 2017 [facility] rocuronium (ANES) Route: IV, Drug form: INJ, ONCE, Stop date: 12/03/17 10:03:00 CDT Inactive 2017 [facility] propofol (ANES) Route: IV, Drug form: INJ, ONCE, Stop date: 12/03/17 10:03:00 CDT Inactive 2017 [facility] lidocaine (ANES) Route: IV, Drug form: INJ, ONCE, Stop date: 12/03/17 10:03:00 CDT Inactive 2017 [facility] fentaNYL (ANES) Route: IV, Drug form: INJ, ONCE, Stop date: 12/03/17 10:03:00 CDT Inactive 2017 [facility] levofloxacin (ANES) 5 mg Route: IV, Drug form: INJ, Start date: 12/03/17 9:26:00 CDT, Stop date: 12/03/17 10:26:00 CDT Inactive 2017 [facility] Lactated Ringers Injection IV (ANES) 1000 mL Route: IV, Total Volume: 1,000, Start date: 12/03/17 9:12:00 CDT, Stop date: 12/03/17 10:12:00 CDT Inactive 2017 [facility] Calcium Chloride 0.0014 MEQ/ML / Potassium Chloride 0.004 MEQ/ML / Sodium Chloride 0.103 MEQ/ML / Sodium Lactate 0.028 MEQ/ML Injectable Solution 1,000 mL, Rate: 25 ml/hr, Infuse over: 40 hr, Route: IV, Dosing Weight 69.545 kg, Total Volume: 1,000, Start date: 12/03/17 7:41:00 CDT, Duration: 30 day, Stop date: 01/02/18 7:40:00 CDT, 1.87, m2 Inactive 2017 [facility] tamsulosin 0.4 mg oral capsule 0.4 mg=1 cap, PO, Daily, 0 Refill(s) Active 11/25/2017 [facility] Hydrochlorothiazide 12.5 MG / Losartan Potassium 100 MG Oral Tablet 1 tab, PO, Daily, 0 Refill(s) Active 11/25/2017 [facility] Aspirin 81 MG Chewable Tablet 81 mg=1 tab, CHEW, Daily, 0 Refill(s) Active 11/25/2017 [facility] pantoprazole 20 mg oral enteric coated tablet 20 mg=1 tab, PO, Daily, 0 Refill(s) Active 11/25/2017 [facility] temazepam 30 mg oral capsule 30 mg=1 cap, PO, Bedtime, PRN Sleep, # 14 cap, 0 Refill(s) Active 11/25/2017 [facility] multivitamin Daily, 0 Refill(s) Active 11/25/2017 [facility] Align 4 mg, PO, Daily, 0 Refill(s) Active 11/25/2017 [facility] Olmesartan Med/Amlodipine/Hctz (Tribenzor 40-5-12.5 Mg Tablet) 1 Each Tablet, Daily Active 08/13/2016 [facility] Sennosides/Docusate Sodium (Senna-Docusate Sodium Tablet) 1 Each Tablet, 5 2 At Bedtime Active 08/13/2016 [facility] Erythromycin Base (Erythromycin) 500 Mg Tablet, 500 Mg Oral Twice A Day Active 09/04/2011 [facility] Hydrocodone Bit/Acetaminophen (Hydrocodone-Apap 10-650 Mg Tab) 1 Each Tablet, 1 Each Oral Active 09/04/2011 [facility] Hydrocodone Bit/Acetaminophen (Hydrocodone-Apap 10-325 Tablet) 1 Each Tablet, 1 Each Oral Three Times A Day Active 09/04/2011 [facility] Aspirin (Aspir 81) 81 Mg Tablet. Daily Active [facility] Lisinopril 10 Mg Tablet Daily Active [facility] Pantoprazole Sodium (Protonix) 40 Mg Tablet. Daily Active [facility] Tamsulosin Hcl 0.4 Mg Cap.er.24h Daily Active [facility] Temazepam 15 Mg Capsule Daily Active [facility] Allergies, Adverse Reactions, Alerts Substance Category Reaction Severity Reaction type Status Date Reported Comments Source Ciprofloxacin NAUSEA Mild Allergy to Substance Active 08/13/2016 [facility] Cipro Assertion Drug allergy Active [facility] Augmentin Assertion Drug allergy Active [facility] Immunizations No Data Provided for This Section [...] should be multiplied by the estimated BMI. [facility] CHEM PANEL Chloride Lvl 101 95 - 109 11/25/2017 [facility] CHEM PANEL Calcium Lvl 9.2 8.5 - 10.5 11/25/2017 [facility] CHEM PANEL CO2 30 24 - 32 11/25/2017 [facility] CHEM PANEL Potassium Lvl 4.8 3.5 - 5.1 11/25/2017 [facility] CHEM PANEL Sodium Lvl 138 135 - 145 11/25/2017 [facility] CHEM PANEL BUN 15 7 - 22 11/25/2017 [facility] CHEM PANEL Glucose Lvl 102 70 - 99 11/25/2017 [facility] CHEM PANEL Creatinine Lvl 1.55 0.50 - 1.40 11/25/2017 [facility] CHEM PANEL AGAP 11.8 10.0 - 20.0 11/25/2017 [facility] HEMATOLOGY PTT 39.6 22.9 - 35.8 11/25/2017 [facility] HEMATOLOGY PT 14.1 12.0 - 14.7 11/25/2017 [facility] HEMATOLOGY INR 1.09 0.85 - 1.17 11/25/2017 [facility] HEMATOLOGY Basophils 1.4 0.0 - 1.0 11/25/2017 [facility] HEMATOLOGY Lymphocytes # 1.7 1.0 - 5.5 11/25/2017 [facility] HEMATOLOGY Neutrophils # 4.6 1.5 - 8.1 11/25/2017 [facility] HEMATOLOGY Monocytes # 0.9 0.0 - 0.8 11/25/2017 [facility] HEMATOLOGY Segs 61.8 45.0 - 75.0 11/25/2017 [facility] HEMATOLOGY Basophils # 0.1 0.0 - 0.2 11/25/2017 [facility] HEMATOLOGY Eosinophils 1.2 0.0 - 4.0 11/25/2017 [facility] HEMATOLOGY Monocytes 12.4 2.0 - 12.0 11/25/2017 [facility] HEMATOLOGY Eosinophils # 0.1 0.0 - 0.5 11/25/2017 [facility] HEMATOLOGY Lymphocytes 23.2 20.0 - 40.0 11/25/2017 [facility] HEMATOLOGY MPV 8.4 7.4 - 10.4 11/25/2017 [facility] HEMATOLOGY RDW 14.0 11.5 - 14.5 11/25/2017 [facility] HEMATOLOGY Platelet 367 133 - 450 11/25/2017 [facility] HEMATOLOGY MCV 90.5 80.0 - 94.0 11/25/2017 [facility] HEMATOLOGY MCHC 34.2 32.0 - 36.0 11/25/2017 [facility] HEMATOLOGY MCH 30.9 27.0 - 31.0 11/25/2017 [facility] HEMATOLOGY RBC 3.66 4.70 - 6.10 11/25/2017 [facility] HEMATOLOGY WBC 7.5 3.7 - 10.4 11/25/2017 [facility] HEMATOLOGY Hgb 11.3 14.0 - 18.0 11/25/2017 [facility] HEMATOLOGY Hct 33.1 42.0 - 54.0 11/25/2017 [facility] URINE AND STOOL UA RBC 4 0 - 2 11/25/2017 [facility] URINE AND STOOL UA Urobilinogen <=1.0 mg/dL 0.1 - 1.0 11/25/2017 [facility] URINE AND STOOL UA Leuk Est Large *ABN* (11/25/17 2:48 PM) Negative 11/25/2017 [facility] URINE AND STOOL UA Sq Epi Occasional /LPF Few /LPF 11/25/2017 [facility] URINE AND STOOL UA WBC 11 0 - 5 11/25/2017 [facility] URINE AND STOOL UA Turbidity Clear (11/25/17 2:48 PM) Clear 11/25/2017 [facility] URINE AND STOOL UA Color Yellow *NA* (11/25/17 2:48 PM) Yellow 11/25/2017 [facility] URINE AND STOOL UA Spec Grav 1.011 <=1.030 11/25/2017 [facility] URINE AND STOOL UA pH 5.0 5.0 - 8.0 11/25/2017 [facility] URINE AND STOOL UA Nitrite Negative (11/25/17 2:48 PM) Negative 11/25/2017 [facility] URINE AND STOOL UA Blood Moderate *ABN* (11/25/17 2:48 PM) Negative 11/25/2017 [facility] URINE AND STOOL UA Bili Negative *NA* (11/25/17 2:48 PM) Negative 11/25/2017 [facility] URINE AND STOOL UA Ketones Negative mg/dL Negative mg/dL 11/25/2017 [facility] URINE AND STOOL UA Protein Negative mg/dL Negative mg/dL 11/25/2017 [facility] URINE AND STOOL UA Glucose Negative mg/dL Negative mg/dL 11/25/2017 [facility] Culture: Urine <10,000 CFU/mL Skin Brigette 11/25/2017 [facility] Pathology Reports No Data Provided for This Section Diagnostic Reports Report Value Date Source Spine lumbar wo contrast MRI Spine lumbar wo contrast MRI 03/10/2017 4:36 PM 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: 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.16 Radiculopathy, lumbar region - M54.16 [...] Comments Source Systolic (mm Hg) 136 2017 [facility] Diastolic (mm Hg) 62 2017 [facility] Systolic (mm Hg) 140 2017 [facility] Diastolic (mm Hg) 60 2017 [facility] Systolic (mm Hg) 162 2017 [facility] Diastolic (mm Hg) 90 2017 [facility] Respitory Rate 16 2017 [facility] Respitory Rate 19 2017 [facility] Respitory Rate 20 2017 [facility] Heart Rate 87 2017 [facility] Heart Rate 84 11/25/2017 [facility] BMI Calculated 21.38 11/25/2017 [facility] Height 180.34 cm 11/25/2017 [facility] Weight 69.545 11/25/2017 [facility] Encounters Location Location Details Encounter Type Encounter Number Reason For Visit Attending Provider ADM Date DC Date Status Source [facility] [id number] Jeremiah Zena 12/18/2014 12/19/2014 C[facility] Alvareza [facility] [place] [id number] [facility] 08/25/2016 08/26/2016 CODI Armstrong [facility] [id number] Bettina Daugherty 03/10/2017 03/11/2017 CODI Armstrong Departed Emergency Room [id number] DOROTHEA BROOKS MD 11/12/2017 11/12/2017 [facility] Day Surgery [id number] Jeremiah Freitas 2017 2017 [facility] Outpatient [id number] [facility] Freitas 11/02/2018 Active [facility] [id number] [facility]/03[facility]2018 [facility] Outpatient [id number] [facility] Freitas 11/07/2018 Active [facility]Reg [id number] [facility] Freitas 11/07/2018 11/07/2018 [facility] Procedures Procedure Code Date Perfomer Comments Source Measurement of post-voiding residual urine and/or bladder capacity by ultrasound, non-imaging 51233 11/02/2018 [facility] Appendectomy [id number] 04/12/2010 [facility] Cholecystectomy [id number] 04/12/2010 [facility] Colon operation [id number] 04/12/2010 [facility] CTR - Carpal tunnel release [id number] [facility] Operation [id number] [facility] Tonsillectomy [id number] [facility] Assessment and Plan No Data Provided for This Section Plan of Care Plan of Care Date Source Discharge Date 11/12/17 9:45pm Disposition HOME, SELF-CARE Condition at Discharge Stable Instructions/Education Provided Urinary Retention Prescriptions See Medication Section Referrals Your urologist Note: Follow up in 2 days Additional Instructions/Education Return to ER if you have worsening symptoms, decreased urine output, fever, abdominal pain, vomiting 11/12/2017 [facility] Social History Social History Date Source Social History TypeResponse Alcohol Past Smoking Status Former smoker; Type: Cigarettes; Exposure to Tobacco Smoke None; Cigarette Smoking Last 365 Days No; Reg Smoking Cessation Counseling No entered on: 12/03/17 11/25/2017 [facility] Social History TypeResponse Alcohol Past Smoking Status Former smoker; Type: Cigarettes; Exposure to Tobacco Smoke None; Cigarette Smoking Last 365 Days No; Reg Smoking Cessation Counseling No entered on: 11/02/18 11/25/2017 [facility] Social History Problem Response Recorded Date/Time Onset Date Status Hx Psychiatric Problems No 08/23/2011 6:00pm Not Applicable Not Applicable Hx Alcohol Use Y - OCCASIONAL 08/23/2011 6:00pm Not Applicable Not Applicable 11/12/2017 [facility] No data available for this section 03/11/2017 [facility] Family History No Data Provided for This Section Advance Directives Order Name Results Value Date Source Advance Directives Advance Directives Directive Response Recorded Date/Time Does the patient have an advance directive? Yes 08/23/11 6:00pm If yes, is advance directive on file with [facility]? Yes 08/13/16 6:25pm If not on file with [facility] will patient provide a copy? Yes 08/23/11 6:00pm Do you have a Directive to Physician? No 11/12/17 9:50pm Do you have a Medical Power of Inpatient Services Rn? Yes 11/12/17 9:50pm Do you have an [...] rights and responsibilities? Yes 11/12/17 9:50pm 11/12/2017 [facility] Functional Status No Data Provided for This Section
--- OUTSIDE RECORDS SUMMARY | 2018-11-26 19:15 | XMS REPORT | Summary of Care ---
Author Author [facility] Organization [facility] Address Unknown Phone Unavailable Encounter LINH Kendall(FIN) [id number] Date(s): 11/02/18 - 11/02/18 [facility] [address] [place] [phone] Discharge Disposition: Home or Self Care Attending Physician: Jeremiah Freitas MD Vital Signs [...] Severity Status Cipro Active Augmentin Active Medications doxycycline hyclate 100 mg oral capsule 100 mg=1 cap, PO, BID, 0 Refill(s) Start Date: 11/02/18 Status: Ordered Flomax 0.4 mg oral capsule 0.4 mg=1 cap, PO, Daily, # 30 cap, 0 Refill(s), Pharmacy: [facility] # [id number] Start Date: 11/04/18 Status: Ordered Pyridium 100 mg oral tablet 100 mg=1 tab, PO, TID, PRN Dysuria, X 3 day, # 10 tab, 0 Refill(s), Pharmacy: [facility] #[id number] Start Date: 11/04/18 Stop Date: 11/07/18 Status: Ordered Results No data available for this section Immunizations No data available for this section Procedures Procedure Date Related Diagnosis Body Site Status Measurement of post-voiding residual urine 11/02/18 Completed and/or bladder capacity by ultrasound, non-imaging Appendectomy 2010 Completed Cholecystectomy 2010 Completed Colon [...]
[2018-11-26] MEDS ORDERED: SODIUM CHLORIDE 0.9% 1000ML 1,000 ML IV STA (19:21)
[2018-11-26] MEDS ORDERED: CEFTRIAXONE SOD 1 GM/NS 50 ML 50 ML IV NR (19:30)
[2018-11-26 19:40] LABS: BASOPHILS # (AUTO) 0.1 (0.0-0.1); BASOPHILS % 0.3 % (0.0-1.0); HEMATOCRIT 35.5 % (38.2-49.6); HEMOGLOBIN 12.1 g/dL (14.0-18.0); LYMPHOCYTES # (AUTO) 1.1 (1.0-3.2); LYMPHOCYTES % 5.3 % (18.0-39.1); MEAN CORPUSCULAR HEMOGLOBIN 29.4 pg (28-32); MEAN CORPUSCULAR HGB CONC 34.1 g/dL (31-35); MEAN CORPUSCULAR VOLUME 86.4 fL (81-99); MONOCYTES # (AUTO) 2.4 (0.2-0.8); MONOCYTES % 11.8 % (4.4-11.3); NEUTROPHILS # (AUTO) 16.6 (2.1-6.9); NEUTROPHILS % 81.9 % (38.7-80.0); PLATELET COUNT 400 x10e3/uL (140-360); RED BLOOD COUNT 4.11 x10e6/uL (4.3-5.7); RED CELL DISTRIBUTION WIDTH 14.7 % (11.7-14.4)
[2018-11-26 19:56] LABS: BILIRUBIN,URINE NEGATIVE (NEGATIVE); CLARITY,URINE SL CLOUDY (CLEAR); COLOR,URINE YELLOW (YELLOW); KETONES,URINE TRACE (NEGATIVE); LEUKOCYTE ESTERASE ,URINE LARGE (NEGATIVE); NITRITE,URINE POSITIVE (NEGATIVE); URINE UROBILINOGEN 4 mg/dL (0.2 - 1)
--- NOTE | 2018-11-26 19:59 | Diagnostic Imaging Report ---
A single frontal view of the chest. HISTORY: Urosepsis, loss of appetite, loss of weight COMPARISON: Chest radiograph August 13, 2016. DISCUSSION: Portable technique, limits sensitivity of the exam. Overlying monitoring leads. The left gastric angle is not entirely included. Tubes/Lines: Unchanged appearance of the left-sided chest port, the tip of the catheter projects in the region of the proximal superior vena cava. Lungs and pleura: The lungs appear mildly hyperinflated. No evidence of a consolidative pneumonia or pulmonary alveolar edema. No definite pleural effusion or pneumothorax is identified. Heart and mediastinum: The cardiomediastinal silhouette appear(s) unremarkable. Bones and soft tissues: Appear unremarkable, given this limited exam. IMPRESSION: 1. Mildly hyperinflated lungs, correlate for obstructive lung disease. 2. Otherwise, unremarkable. Signed by: Dr. Vel Suárez D.O., M.M.M. on 11/26/2018 7:56 PM
[2018-11-26 20:01] LABS: PROTEIN,URINE DIPSTICK 3+ (NEGATIVE)
[2018-11-26 20:22] LABS: ALBUMIN/GLOBULIN RATIO 1.3 (0.8-2.0); CALCIUM 9.3 mg/dL (8.4-10.2); CREATININE, SERUM 1.59 mg/dL (0.72-1.25)
[2018-11-26 20:28] LABS: RBC,URINE 21-50 /HPF (0-5); WBC,URINE (MAN) >50 /HPF (0-5)
[2018-11-26 20:29] LABS: AMORPHOUS SEDIMENT,URINE MANY (FEW); BACTERIA,URINE MANY /HPF; EPITHELIAL CELLS,URINE MANY /LPF
[2018-11-26 20:29] LABS: CREATINE KINASE MB 0.9 ng/mL (0-5.0)
[2018-11-26] MEDS ORDERED: ACETAMINOPHEN 650 MG SUPP PR PRN (20:30)
--- OUTSIDE RECORDS SUMMARY | 2018-11-26 20:49 | XMS REPORT | Continuity of Care Document ---
Author Author [facility] Address Unknown Phone Unavailable Care Team Providers Care Manager Data Warehousing Name Role Phone [employer] Information Outside.in Unavailable Unavailable Problems Problem Status Onset Date Classification Date Reported Comments Source Benign prostatic hyperplasia with lower urinary tract symptoms 12/13/2017 06/22/2018 [facility] UNK Active 11/17/2017 [facility] M60.9 - "MYOSITIS, UNSPECIFIED" Active 08/20/2016 [facility] 788.20 - RETENTION OF UR 600.01 - BPH W Active 11/21/2014 [facility] Final: Radiculopathy, lumbar region 03/13/2017 [facility] Final: Spinal stenosis, lumbar region without neurogenic claudication 03/13/2017 [facility] Final: Other intervertebral disc degeneration, lumbar region 03/13/2017 [facility] Bladder-neck obstruction 06/22/2018 [facility] Other retention of urine 06/22/2018 [facility] Dorsalgia, unspecified 06/22/2018 [facility] Unspecified asthma, uncomplicated 06/22/2018 [facility] Anemia, unspecified 06/22/2018 [facility] Diaphragmatic hernia without obstruction or gangrene 06/22/2018 [facility] Gastro-esophageal reflux disease without esophagitis 06/22/2018 [facility] Essential hypertension 06/22/2018 [facility] Major depressive disorder, single episode, unspecified 06/22/2018 [facility] Atherosclerotic heart disease of [place] coronary artery without angina pectoris 06/22/2018 [facility] Cardiac arrhythmia, unspecified 06/22/2018 [facility] Polyneuropathy, unspecified 06/22/2018 [facility] Anxiety disorder, unspecified 06/22/2018 [facility] Personal history of other malignant neoplasm of large intestine 06/22/2018 [facility] Personal history of antineoplastic chemotherapy 06/22/2018 [facility] termination clerk use of aspirin 06/22/2018 [facility] Personal history of nicotine dependence 06/22/2018 [facility] Anxiety Active Problem 06/22/2018 [facility] BPH (Confirmed) Active Problem 06/22/2018 [facility] BBB (Confirmed) Active Problem 06/22/2018 [facility] SOB (Confirmed)1 Active Problem 06/22/2018 with anxiety [facility] GERD (Confirmed) Active Problem 06/22/2018 [facility] HTN (Confirmed) Active Problem 06/22/2018 [facility] Colon cancer Resolved Problem 06/22/2018 [facility] Anxiety (finding) Active Problem 11/09/2018 [facility] Benign prostatic hyperplasia (disorder) Active Problem 11/09/2018 [facility] Bundle branch block (disorder) Active Problem 11/09/2018 [facility] Dyspnea (finding) Active Problem 11/09/2018 with anxiety [facility] Gastroesophageal reflux disease (disorder) Active Problem 11/09/2018 [facility] Hypertensive disorder, systemic arterial (disorder) Active Problem 11/09/2018 [facility] Malignant tumor of colon (disorder) Resolved Problem 11/09/2018 [facility] Medications Medication Details Route Status Patient Instructions Ordering Provider Order Date Source Tamsulosin hydrochloride 0.4 MG Oral Capsule [Flomax] 0.4 mg=1 cap, PO, Daily, # 30 cap, 0 Refill(s), Pharmacy: [facility] #[id number] Active 11/04/2018 [facility] Phenazopyridine hydrochloride 100 MG Oral Tablet [Pyridium] 100 mg=1 tab, PO, TID, PRN Dysuria, X 3 day, # 10 tab, 0 Refill(s), Pharmacy: [facility] #[id number] Active 11/04/2018 [facility] doxycycline hyclate 100 MG Oral Capsule 100 mg=1 cap, PO, BID, 0 Refill(s) Active 11/02/2018 [facility] Zofran ODT 4 mg, Route: PO, Drug form: TABDIS, ONCE, Dosing Weight 69.545, kg, Start date: 12/03/17 11:48:00 CDT, Stop date: 12/03/17 11:48:00 CDT Inactive 2017 [facility] Dexamethasone 4 mg, Route: IVP, ONCE, Dosing Weight 69.545, kg, PRN Nausea & Vomiting, Start date: 12/03/17 10:33:00 CDT Inactive 2017 [facility] Ondansetron 4 mg, Route: IVP, ONCE, Dosing Weight 69.545, kg, PRN Nausea & Vomiting, Start date: 12/03/17 10:33:00 CDT Inactive 2017 [facility] Oxycodone 5 mg, Route: PO, Drug form: LIQ, Q4H, Dosing Weight 69.545, kg, PRN Pain Score 7-10, Start date: 12/03/17 10:33:00 CDT, Duration: 30 day, Stop date: 01/02/18 10:32:00 CDT Inactive 2017 [facility] Fentanyl 25 microgram, Route: IVP, Q5Min, Dosing Weight 69.545, kg, PRN Pain Score 4-6, Priority: Routine, Start date: 12/03/17 10:33:00 CDT, Duration: 4 doses or times, Stop date: Limited # of times Inactive 2017 [facility] Albuterol 0.83 MG/ML Inhalant Solution 2.49 mg, Route: NEB, Q20Min, Dosing Weight 69.545, kg, PRN Wheezing, Priority: STAT, Start date: 12/03/17 10:33:00 CDT, Duration: 30 day, Stop date: 01/02/18 10:32:00 CDT Inactive 2017 [facility] Naloxone 0.4 mg, Route: IVP, Q2MIN, Dosing Weight 69.545, kg, PRN Narcotic Reversal, Start date: 12/03/17 10:33:00 CDT, Duration: 8 doses or times, Stop date: Limited # of times Inactive 2017 [facility] Flumazenil 0.2 mg, Route: IVP, PRN, Dosing Weight 69.545, kg, PRN Benzodiazepine Reversal, Initial dose, Start date: 12/03/17 10:33:00 CDT, Duration: 30 day, Stop date: 01/02/18 10:32:00 CDT Inactive 2017 [facility] Sulfamethoxazole 800 MG / Trimethoprim 160 MG Oral Tablet [Bactrim] 1 tab, PO, BID, # 14 tab, 0 Refill(s) Active 2017 [facility] Hydromorphone 0.3 mg, Route: IVP, Q3H, Dosing Weight 69.545, kg, PRN Pain Score 4-6, Start date: 12/03/17 10:18:00 CDT, Duration: 30 day, Stop date: 01/02/18 10:17:00 CDT Inactive 2017 [facility] Belladonna Alkaloids 16.2 MG / Opium 30 MG Rectal Suppository 1 supp, Route: AK, Dosing Weight 69.545, kg, Q6H, PRN Bladder Spasm, Start date: 12/03/17 10:18:00 CDT, Duration: 30 day, Stop date: 01/02/18 10:17:00 CDT Inactive 2017 [facility] neostigmine (ANES) Route: IV, Drug form: INJ, ONCE, Stop date: 12/03/17 10:15:00 CDT Inactive 2017 [facility] glycopyrrolate (ANES) Route: IV, Drug form: INJ, ONCE, Stop date: 12/03/17 10:15:00 CDT Inactive 2017 [facility] ePHEDrine (ANES) Route: IV, Drug form: INJ, ONCE, Stop date: 12/03/17 10:08:00 CDT Inactive 2017 [facility] rocuronium (ANES) Route: IV, Drug form: INJ, ONCE, Stop date: 12/03/17 10:03:00 CDT Inactive 2017 [facility] propofol (ANES) Route: IV, Drug form: INJ, ONCE, Stop date: 12/03/17 10:03:00 CDT Inactive 2017 [facility] lidocaine (ANES) Route: IV, Drug form: INJ, ONCE, Stop date: 12/03/17 10:03:00 CDT Inactive 2017 [facility] fentaNYL (ANES) Route: IV, Drug form: INJ, ONCE, Stop date: 12/03/17 10:03:00 CDT Inactive 2017 [facility] levofloxacin (ANES) 5 mg Route: IV, Drug form: INJ, Start date: 12/03/17 9:26:00 CDT, Stop date: 12/03/17 10:26:00 CDT Inactive 2017 [facility] Lactated Ringers Injection IV (ANES) 1000 mL Route: IV, Total Volume: 1,000, Start date: 12/03/17 9:12:00 CDT, Stop date: 12/03/17 10:12:00 CDT Inactive 2017 [facility] Calcium Chloride 0.0014 MEQ/ML / Potassium Chloride 0.004 MEQ/ML / Sodium Chloride 0.103 MEQ/ML / Sodium Lactate 0.028 MEQ/ML Injectable Solution 1,000 mL, Rate: 25 ml/hr, Infuse over: 40 hr, Route: IV, Dosing Weight 69.545 kg, Total Volume: 1,000, Start date: 12/03/17 7:41:00 CDT, Duration: 30 day, Stop date: 01/02/18 7:40:00 CDT, 1.87, m2 Inactive 2017 [facility] tamsulosin 0.4 mg oral capsule 0.4 mg=1 cap, PO, Daily, 0 Refill(s) Active 11/25/2017 [facility] Hydrochlorothiazide 12.5 MG / Losartan Potassium 100 MG Oral Tablet 1 tab, PO, Daily, 0 Refill(s) Active 11/25/2017 [facility] Aspirin 81 MG Chewable Tablet 81 mg=1 tab, CHEW, Daily, 0 Refill(s) Active 11/25/2017 [facility] pantoprazole 20 mg oral enteric coated tablet 20 mg=1 tab, PO, Daily, 0 Refill(s) Active 11/25/2017 [facility] temazepam 30 mg oral capsule 30 mg=1 cap, PO, Bedtime, PRN Sleep, # 14 cap, 0 Refill(s) Active 11/25/2017 [facility] multivitamin Daily, 0 Refill(s) Active 11/25/2017 [facility] Align 4 mg, PO, Daily, 0 Refill(s) Active 11/25/2017 [facility] Olmesartan Med/Amlodipine/Hctz (Tribenzor 40-5-12.5 Mg Tablet) 1 Each Tablet, Daily Active 08/13/2016 [facility] Sennosides/Docusate Sodium (Senna-Docusate Sodium Tablet) 1 Each Tablet, 5 2 At Bedtime Active 08/13/2016 [facility] Erythromycin Base (Erythromycin) 500 Mg Tablet, 500 Mg Oral Twice A Day Active 09/04/2011 [facility] Hydrocodone Bit/Acetaminophen (Hydrocodone-Apap 10-650 Mg Tab) 1 Each Tablet, 1 Each Oral Active 09/04/2011 [facility] Hydrocodone Bit/Acetaminophen (Hydrocodone-Apap 10-325 Tablet) 1 Each Tablet, 1 Each Oral Three Times A Day Active 09/04/2011 [facility] Aspirin (Aspir 81) 81 Mg Tablet. Daily Active [facility] Lisinopril 10 Mg Tablet Daily Active [facility] Pantoprazole Sodium (Protonix) 40 Mg Tablet. Daily Active [facility] Tamsulosin Hcl 0.4 Mg Cap.er.24h Daily Active [facility] Temazepam 15 Mg Capsule Daily Active [facility] Allergies, Adverse Reactions, Alerts Substance Category Reaction Severity Reaction type Status Date Reported Comments Source Ciprofloxacin NAUSEA Mild Allergy to Substance Active 08/13/2016 [facility] Cipro Assertion Drug allergy Active [facility] Augmentin Assertion Drug allergy Active [facility] Immunizations No Data Provided for This Section [...] should be multiplied by the estimated BMI. [facility] CHEM PANEL Chloride Lvl 101 95 - 109 11/25/2017 [facility] CHEM PANEL Calcium Lvl 9.2 8.5 - 10.5 11/25/2017 [facility] CHEM PANEL CO2 30 24 - 32 11/25/2017 [facility] CHEM PANEL Potassium Lvl 4.8 3.5 - 5.1 11/25/2017 [facility] CHEM PANEL Sodium Lvl 138 135 - 145 11/25/2017 [facility] CHEM PANEL BUN 15 7 - 22 11/25/2017 [facility] CHEM PANEL Glucose Lvl 102 70 - 99 11/25/2017 [facility] CHEM PANEL Creatinine Lvl 1.55 0.50 - 1.40 11/25/2017 [facility] CHEM PANEL AGAP 11.8 10.0 - 20.0 11/25/2017 [facility] HEMATOLOGY PTT 39.6 22.9 - 35.8 11/25/2017 [facility] HEMATOLOGY PT 14.1 12.0 - 14.7 11/25/2017 [facility] HEMATOLOGY INR 1.09 0.85 - 1.17 11/25/2017 [facility] HEMATOLOGY Basophils 1.4 0.0 - 1.0 11/25/2017 [facility] HEMATOLOGY Lymphocytes # 1.7 1.0 - 5.5 11/25/2017 [facility] HEMATOLOGY Neutrophils # 4.6 1.5 - 8.1 11/25/2017 [facility] HEMATOLOGY Monocytes # 0.9 0.0 - 0.8 11/25/2017 [facility] HEMATOLOGY Segs 61.8 45.0 - 75.0 11/25/2017 [facility] HEMATOLOGY Basophils # 0.1 0.0 - 0.2 11/25/2017 [facility] HEMATOLOGY Eosinophils 1.2 0.0 - 4.0 11/25/2017 [facility] HEMATOLOGY Monocytes 12.4 2.0 - 12.0 11/25/2017 [facility] HEMATOLOGY Eosinophils # 0.1 0.0 - 0.5 11/25/2017 [facility] HEMATOLOGY Lymphocytes 23.2 20.0 - 40.0 11/25/2017 [facility] HEMATOLOGY MPV 8.4 7.4 - 10.4 11/25/2017 [facility] HEMATOLOGY RDW 14.0 11.5 - 14.5 11/25/2017 [facility] HEMATOLOGY Platelet 367 133 - 450 11/25/2017 [facility] HEMATOLOGY MCV 90.5 80.0 - 94.0 11/25/2017 [facility] HEMATOLOGY MCHC 34.2 32.0 - 36.0 11/25/2017 [facility] HEMATOLOGY MCH 30.9 27.0 - 31.0 11/25/2017 [facility] HEMATOLOGY RBC 3.66 4.70 - 6.10 11/25/2017 [facility] HEMATOLOGY WBC 7.5 3.7 - 10.4 11/25/2017 [facility] HEMATOLOGY Hgb 11.3 14.0 - 18.0 11/25/2017 [facility] HEMATOLOGY Hct 33.1 42.0 - 54.0 11/25/2017 [facility] URINE AND STOOL UA RBC 4 0 - 2 11/25/2017 [facility] URINE AND STOOL UA Urobilinogen <=1.0 mg/dL 0.1 - 1.0 11/25/2017 [facility] URINE AND STOOL UA Leuk Est Large *ABN* (11/25/17 2:48 PM) Negative 11/25/2017 [facility] URINE AND STOOL UA Sq Epi Occasional /LPF Few /LPF 11/25/2017 [facility] URINE AND STOOL UA WBC 11 0 - 5 11/25/2017 [facility] URINE AND STOOL UA Turbidity Clear (11/25/17 2:48 PM) Clear 11/25/2017 [facility] URINE AND STOOL UA Color Yellow *NA* (11/25/17 2:48 PM) Yellow 11/25/2017 [facility] URINE AND STOOL UA Spec Grav 1.011 <=1.030 11/25/2017 [facility] URINE AND STOOL UA pH 5.0 5.0 - 8.0 11/25/2017 [facility] URINE AND STOOL UA Nitrite Negative (11/25/17 2:48 PM) Negative 11/25/2017 [facility] URINE AND STOOL UA Blood Moderate *ABN* (11/25/17 2:48 PM) Negative 11/25/2017 [facility] URINE AND STOOL UA Bili Negative *NA* (11/25/17 2:48 PM) Negative 11/25/2017 [facility] URINE AND STOOL UA Ketones Negative mg/dL Negative mg/dL 11/25/2017 [facility] URINE AND STOOL UA Protein Negative mg/dL Negative mg/dL 11/25/2017 [facility] URINE AND STOOL UA Glucose Negative mg/dL Negative mg/dL 11/25/2017 [facility] Culture: Urine <10,000 CFU/mL Skin Brigette 11/25/2017 [facility] Pathology Reports No Data Provided for This Section Diagnostic Reports Report Value Date Source Spine lumbar wo contrast MRI Spine lumbar wo contrast MRI 03/10/2017 4:36 PM [employer] CLINICAL: M54.16 Radiculopathy, lumbar region - M54.16 [...] Comments Source Systolic (mm Hg) 136 2017 [facility] Diastolic (mm Hg) 62 2017 [facility] Systolic (mm Hg) 140 2017 [facility] Diastolic (mm Hg) 60 2017 [facility] Systolic (mm Hg) 162 2017 [facility] Diastolic (mm Hg) 90 2017 [facility] Respitory Rate 16 2017 [facility] Respitory Rate 19 2017 [facility] Respitory Rate 20 2017 [facility] Heart Rate 87 2017 [facility] Heart Rate 84 11/25/2017 [facility] BMI Calculated 21.38 11/25/2017 [facility] Height 180.34 cm 11/25/2017 [facility] Weight 69.545 11/25/2017 [facility] Encounters Location Location Details Encounter Type Encounter Number Reason For Visit Attending Provider ADM Date DC Date Status Source [facility] [place] [facility] [id number] Jeremiah Zena 12/18/2014 12/19/2014 CODI Alvareza [facility] [place] [facility] [id number] [facility] 08/25/2016 08/26/2016 CODI Armstrong [facility] [place] [facility] [id number] Bettina Daugherty 03/10/2017 03/11/2017 CODI Armstrong Departed Emergency Room [id number] DOROTHEA BROOKS MD 11/12/2017 11/12/2017 [facility] Day Surgery [id number] Jeremiah Freitas 2017 2017 [facility] Outpatient [id number] [facility] Freitas 11/02/2018 Active [id number] [facility] 11[facility]03/2018 [facility] Outpatient [id number] [facility] 11/07/2018 Active [facility] Pre-Reg [id number] [facility] 11/07/2018 11/07/2018 [facility] Procedures Procedure Code Date Perfomer Comments Source Measurement of post-voiding residual urine and/or bladder capacity by ultrasound, non-imaging 58777 11/02/2018 [facility] Appendectomy [id number] 04/12/2010 [facility] Cholecystectomy [id number] 04/12/2010 [facility] Colon operation [id number] 04/12/2010 [facility] CTR - Carpal tunnel release [id number] [facility] Operation [id number] [facility] Tonsillectomy [id number] [facility] Assessment and Plan No Data Provided [...] urine output, fever, abdominal pain, vomiting 11/12/2017 [facility] Social History Social History Date Source Social [...] 08/23/2011 6:00pm Not Applicable Not Applicable 11/12/2017 [facility] No data available for this section 03/11/2017 [facility] Family History No Data Provided for This Section Advance Directives Order Name Results Value Date Source Advance Directives Advance Directives Directive Response Recorded Date/Time Does the patient have an advance directive? Yes 08/23/11 6:00pm If yes, is advance directive on file with [facility]? Yes 08/13/16 6:25pm If not on file with [facility] will patient provide a copy? Yes 08/23/11 6:00pm Do you have a Directive to Physician? No 11/12/17 9:50pm Do you have a Medical Power of Pants Maker? Yes 11/12/17 9:50pm Do you have an [...] rights and responsibilities? Yes 11/12/17 9:50pm 11/12/2017 [facility] Functional Status No Data Provided for This Section
--- OUTSIDE RECORDS SUMMARY | 2018-11-26 20:49 | XMS REPORT ---
Author Author [facility] Address Unknown Phone Unavailable Care Team Providers Care Framework Developer Name Role Phone Ibis DAVID Unavailable Unavailable Problems This patient has no known problems. Allergies, Adverse Reactions, Alerts This patient has no known allergies or adverse reactions. Medications This patient has no known medications. Results Test Description Test Time Test Comments Text Results Atomic Results Result Comments CHEST SINGLE (PORTABLE) 2018-11-26 19:54:00 [facility] [address] [address] Patient Name: ALLI BOYD MR #: [id number] : 1940 Age/Sex: 77/M Req #: [id number] Adm Physician: Ordered by: ADRIAN DAVID MD Report #: [id number] Location: ER Room/Bed: Procedure: [id number] DX/CHEST SINGLE (PORTABLE) Exam Date: 11/26/18 Exam Time: 1929 REPORT STATUS: Signed A single frontal view of the chest. HISTORY: Urosepsis, loss of appetite, loss of weight COMPARISON: Chest radiograph August 13, 2016. DISCUSSION: Portable technique, limits sensitivity of the exam. Overlying monitoring leads. The left gastric angle is not entirely included. Tubes/Lines: Unchanged appearance of the left-sided chest port, the tip of the catheter projects in the region of the proximal superior vena cava. Lungs and pleura: The lungs appear mildly hyperinflated. No evidence of a consolidative pneumonia or pulmonary alveolar edema. No definite pleural effusion or pneumothorax is identified. Heart and mediastinum: The cardiomediastinal silhouette appear(s) unremarkable. Bones and soft tissues: Appear unremarkable, given this limited exam. IMPRESSION: 1. Mildly hyperinflated lungs, correlate for obstructive lung disease. 2. Otherwise, unremarkable. Signed by: Dr. Lisa Suárez D.O., M.M.M. on 11/26/2018 7:56 PM Dictated By: LISA SUÁREZ DO 55 Transcribed By: HERMELINDA on 11/26/181955 COPY TO: ADRIAN DAVID MD
[2018-11-26 21:20] LABS: LYMPHOCYTES % (MANUAL) 6 % (19-48); MONOCYTES % (MANUAL) 12 % (3.4-9.0); NEUTROPHILS % (MANUAL) 82 % (40-74); PLATELET ESTIMATE ADEQUATE; PLATELET MORPHOLOGY COMMENT NORMAL; RBC MORPHOLOGY COMMENT NORMAL
--- NOTE | 2018-11-26 21:28 | NUR ---
Pt arrived to the unit via stretcher bed accompanied by ER nurse (David) and (Breana) to Rm 289. Patient alert and oriented x3. Dx of indwelling carmichael catheter present on admission, sepsis, and UTI. Carmichael in place for urinary retention. Pt up with assistance in room prn. Pt denies any discomfort or pain at this time. Will be placed on IVF (NS at 125ml/hr). Call anthony within reach. Will continue to monitor.
[2018-11-26 22:18] VITALS: BP 140/67
[2018-11-26] MEDS ORDERED: IRBESARTAN150 MG PO (22:29)
[2018-11-26] MEDS ORDERED: HYDROCHLOROTH12.5 M1 PO (22:29)
[2018-11-26 22:30] VITALS: BP 140/67
--- NOTE | 2018-11-26 22:38 | NUR ---
Spoke with Dr. Wolf to inform him that he was consulted to see patient for reasons of Indwelling carmichael and urosepsis. MD aware and stated will see pt in AM. No new orders given.
[2018-11-26] MEDS: SODIUM CHLORIDE 0.9% 1000ML 1,000 ML IV SCH (22:40)
--- NOTE | 2018-11-26 22:48 | NUR ---
Spoke with Dr. Blanco and informed pt requesting to take home med (Temazepam). MD stated ok to continue Temazepam 30mg. MD stated he will decide to tomorrow if he will continue the rest of home meds.
[2018-11-26] MEDS: TEMAZEPAM 15 MG CAP PO SCH (23:10)
[2018-11-27 04:00] VITALS: BP 138/61
[2018-11-27] MEDS: SODIUM CHLORIDE 0.9% 1000ML 1,000 ML IV SCH ×3 (05:30→19:30)
[2018-11-27 07:27] LABS: BASOPHILS # (AUTO) 0.1 (0.0-0.1); BASOPHILS % 0.4 % (0.0-1.0); EOSINOPHILS % 0.1 % (0.0-6.0); HEMATOCRIT 29.7 % (38.2-49.6); HEMOGLOBIN 9.7 g/dL (14.0-18.0); LYMPHOCYTES # (AUTO) 1.2 (1.0-3.2); MEAN CORPUSCULAR HEMOGLOBIN 28.7 pg (28-32); MEAN CORPUSCULAR HGB CONC 32.7 g/dL (31-35); MEAN CORPUSCULAR VOLUME 87.9 fL (81-99); MONOCYTES # (AUTO) 1.6 (0.2-0.8); MONOCYTES % 11.9 % (4.4-11.3); NEUTROPHILS # (AUTO) 10.4 (2.1-6.9); PLATELET COUNT 324 x10e3/uL (140-360); RED BLOOD COUNT 3.38 x10e6/uL (4.3-5.7); RED CELL DISTRIBUTION WIDTH 14.6 % (11.7-14.4)
[2018-11-27 07:30] VITALS: BP 127/63
--- NOTE | 2018-11-27 07:30 | NUR ---
PT UP IN BED DENIES PAIN,NO DISTRESS NTOED.DR MORGAN HERE TO SEE PT NO NEW ORDERS
[2018-11-27 07:46] LABS: ALBUMIN/GLOBULIN RATIO 1.2 (0.8-2.0); ANION GAP 9.1 mmol/L (8-16); CALCIUM 8.2 mg/dL (8.4-10.2); CREATININE, SERUM 1.18 mg/dL (0.72-1.25); POTASSIUM 4.1 mmol/L (3.5-5.1)
[2018-11-27 08:54] VITALS: BP 127/63
--- NOTE | 2018-11-27 12:30 | NUR ---
PT UP IN BED DENIES PAIN ,CALIX TO BSD RIRI URINE
--- NOTE | 2018-11-27 12:43 | Consultation ---
DATE OF CONSULTATION: 11/27/2018 Urology Consultation Consultation is called by Dr. Blanco. CHIEF UROLOGIC COMPLAINT AND REASON FOR CONSULTATION: Urinary retention. HISTORY OF PRESENT ILLNESS: Mr. Ramsey is a 77-year-old male patient of Dr. Colt Moraes, who was last seen approximately two weeks ago. He was admitted to the hospital for unclear reasons with Lim catheter pain. The patient is a former patient of Dr. Freitas, who has had a transurethral resection of prostate and admitted for Lim catheter pain. No gross hematuria. No fevers. No chills. PAST MEDICAL HISTORY: As above. Please see per admission. MEDICATIONS: Please see MAR. ALLERGIES: NKDA. SOCIAL HISTORY: Denied smoking or drinking. FAMILY HISTORY: Denied urologic stones or malignancies. REVIEW OF SYSTEMS: Noncontributory, other than problems mentioned above for 12 organ systems. PHYSICAL EXAMINATION: GENERAL: Elderly male, in no distress. VITAL SIGNS: Temperature is 96.7, pulse 84, respirations 16, and blood pressure 138/61. HEENT: Sclerae anicteric. NECK: Supple. BACK: Without costovertebral angle tenderness bilaterally. ABDOMEN: Soft. It is nontender. It is no nondistended. There is no palpable mass. No palpable hernias. No palpable adenopathy. : Normal male phallus. Lim catheter draining clear yellow urine. EXTREMITIES: No edema. NEURO: Moving all 4 extremities. PSYCH: Alert and mood appropriate. SKIN: Intact. Normal color. PERTINENT LABORATORY DATA: Hemoglobin 9.7, hematocrit 29, platelet count 324,000, and white cell count 13,000. Sodium 138, potassium 4.1, chloride 97, bicarb 28, BUN 12, creatinine 1.1, glucose 98. Urinalysis 21 to 50 reds, greater than 50 whites. IMPRESSION: 1. Urinary retention. 2. Benign prostatic hypertrophy. 3. Urinary tract infection, present on admission. 4. Microscopic hematuria. 5. Hypertension. 6. Hyponatremia. 7. Anemia. PLAN: The patient has a Lim catheter indwelling. We will obtain urine culture. Defer hypertension, heme and lytes to primary service. The patient has already had a cystoscopy for microscopic hematuria by Dr. Moraes. We will be happy to follow along with you. Thank you for allowing me to participate in the care of your patient. MD HANY Prather/ANJANA /[id number] cc: Evangelist Blanco MD
[2018-11-27 13:46] VITALS: BP 109/51
[2018-11-27 17:14] VITALS: BP 123/56
--- NOTE | 2018-11-27 17:17 | NUR ---
H&P cc: urinary retention HPI: 77yoM, PCP Dr.Milton Tinoco, developed urinary retention, calix palced 10 days ago, now having UTIs. Came to hospital hoping to have 2nd TURP done. PMH: BPH s/p TURP, Colon cancer s/p right hemicolectomy, cholelithiasis s/p cholecystectomy PSHx: TURP, right hemicolectomy, cholecystectomy Allergies; seeemr FH/SH:no illicits; family involved in care Meds; see MAR ROS: no f/c/s/N/V/D/GUZMAN/vision changes/skin rash/back pain v./s: revd PE: nad anicteric ns1s2 mod bs soft nt nd CALIX in place no e/t skin dry n. affect a&Ox3; romo labs/meds; revd A/P: Complicated UTI due to calix Urinary retention Sepsis LYNDA Hyponatremia BPH PLAN IV abx IVF f/u cx Restart home meds Evangelist Blanco MD, PhD.
[2018-11-27] MEDS: PANTOPRAZOLE SOD 40 MG TABEC PO SCH (18:00)
--- NOTE | 2018-11-27 18:26 | NUR ---
PT RESTING NO S/S DISCOMFORT,
--- NOTE | 2018-11-27 19:00 | NUR ---
Patient visited in room during nursing rounds. Patient alert and oriented x4. at bedside. Lim catheter in place for urinary retention. Pt on IVF (NS at 125ml/hr) and scheduled IV antibiotics (Rocephin 1gm IV). Pt denies any pain or discomfort at this time. Pt verbally stated he and his were both upset after conversing with Dr. Blanco and Dr. Wolf. With Dr. Wolf, they stated that they felt he was rushing and not explaining much information to them. With Dr. Blanco, they felt that he does not want to be involved with their (patient and ) desire to change Urologist doctors. Nurse (Jarrod) will send email to Angelina Maradiaga (MS Director) and Farzaneh Jean (MS Milling Machine Operator) regarding this matter. Call anthony within reach. Will monitor closely.
[2018-11-27] MEDS: CEFTRIAXONE SOD 1 GM/NS 50 ML 50 ML IV SCH (19:30)
[2018-11-27 20:00] VITALS: BP 148/63
[2018-11-27] MEDS: TEMAZEPAM 15 MG CAP PO SCH (21:45)
[2018-11-27] MEDS: TAMSULOSIN HCL 0.4 MG CAP PO SCH (21:45)
[2018-11-28] VITALS (8 sets, daily range): BP systolic 132–164; BP diastolic 61–73
[2018-11-28] MEDS: SODIUM CHLORIDE 0.9% 1000ML 1,000 ML IV SCH ×3 (04:10→20:38)
[2018-11-28 06:17] LABS: BASOPHILS % 0.4 % (0.0-1.0); EOSINOPHILS # (AUTO) 0.1 (0.0-0.4); EOSINOPHILS % 0.9 % (0.0-6.0); HEMATOCRIT 29.3 % (38.2-49.6); HEMOGLOBIN 9.5 g/dL (14.0-18.0); LYMPHOCYTES # (AUTO) 1.3 (1.0-3.2); LYMPHOCYTES % 11.5 % (18.0-39.1); MEAN CORPUSCULAR HGB CONC 32.4 g/dL (31-35); MEAN CORPUSCULAR VOLUME 89.3 fL (81-99); MONOCYTES # (AUTO) 1.5 (0.2-0.8); MONOCYTES % 13.1 % (4.4-11.3); NEUTROPHILS # (AUTO) 8.2 (2.1-6.9); NEUTROPHILS % 73.5 % (38.7-80.0); PLATELET COUNT 295 x10e3/uL (140-360); RED BLOOD COUNT 3.28 x10e6/uL (4.3-5.7); RED CELL DISTRIBUTION WIDTH 15.2 % (11.7-14.4)
[2018-11-28] MEDS: PANTOPRAZOLE SOD 40 MG TABEC PO SCH (06:19)
[2018-11-28 06:39] LABS: ANION GAP 9.9 mmol/L (8-16); BLOOD UREA NITROGEN 8 mg/dL (7-26); BUN/CREATININE RATIO 9 (6-25); CALCIUM 8.6 mg/dL (8.4-10.2); CARBON DIOXIDE 28 mmol/L (22-29); CHLORIDE 98 mmol/L (98-107); CREATININE, SERUM 0.89 mg/dL (0.72-1.25); EST GLOMERULAR FILTRATION RATE > 60 ML/MIN (60-); GLUCOSE 95 mg/dL (74-118); POTASSIUM 3.9 mmol/L (3.5-5.1); SODIUM 132 mmol/L (136-145)
--- NOTE | 2018-11-28 07:31 | NUR ---
This pt. was received from the off-going nurse in stable condition and without complaints.
--- NOTE | 2018-11-28 09:40 | NUR ---
IM- progress note O/N no events ROS: no f/c/s/N/V/D/GUZMAN/vision changes/skin rash/back pain v./s: revd PE: nad anicteric ns1s2 mod bs soft nt nd CALIX in place no e/t skin dry n. affect a&Ox3; romo labs/meds; revd A/P: Complicated UTI due to calix Urinary retention Sepsis LYNDA Hyponatremia BPH PLAN IV abx IVF f/u cx Restart home meds 11/28 Klebsiella and Enterococcus UTIs. cont keflex. Evangelist Blanco MD, PhD.
--- NOTE | 2018-11-28 11:27 | NUR ---
EDUCATED ABOUT IMM, SIGNED, FILED IN CHART, WITH COPY LEFT WITH FAMILY AT BEDSIDE.
--- NOTE | 2018-11-28 15:46 | NUR ---
Nutrition Intervention Note RD Recommendation(s) for Physician: -Continue diet as ordered -Rec Ensure Enlive BID to increase protein-calorie intake -The patient meets criteria for MODERATE protein-calorie malnutrition. Plan of Care: RD following, monitoring for tolerance and adequacy, ONS rec Nutrition reason for involvement: MST RD Assessment 11/28 77yo M, who was admitted for urinary retention. Visited pt in the room. Per , pt has been eating less than usual for the past 2 weeks. thinks pt has lost 5-10 lbs in 2 weeks. Pt reported some nausea and was given Protonix. No vomiting episode noted. Pt has lower denture and cant eat anything hard. Communicated with kitchen to chop up his foods. No swallowing difficulty noted. asked about Ensure; RD rec Ensure BID with meals. Pt was agreeable. Discussed menu options. Will continue to monitor and follow. Principal Problems/Diagnoses: urinary retention PMH: BPH s/p TURP, Colon cancer s/p right hemicolectomy, cholelithiasis s/p cholecystectomy GI: abdomen soft, non-tender, LBM 11/28 Skin: no pressure wound noted Labs: (11/28) Na 132 L Meds: NaCl, protonix Ht: 71in Wt: 147lb BMI: 20.5kg/m2 IBW: 172lb +/- 10% Malnutrition Evaluation (11/28/18) The patient meets criteria for MODERATE protein-calorie malnutrition. Energy intake: <75% of estimated energy requirements for >7 days Weight loss: >2% in 1week (Acute) Fat loss: Moderate clavicle protrusion Muscle loss: Moderate temporal depression, squaring of shoulder Supporting Evidence: Fluid accumulation: None Functional Status: no changes Nutrition Prescription (Diet Order): cardiac diet Estimated Nutritional Needs: Calories: 1675 2010kcal (25-30kcal/kg/d) Weight used: CBW Protein: 67 100g (1-1.5g/kg/d) Weight used: CBW Diet Adequacy: Not meeting calorie needs, Not meeting protein needs Diet Education Needs Assessment: Diet education not indicated. 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 Goal: Patient will meet 75-100% of estimated needs by follow up Progress: Progressing Interventions: Modified diet, Commercial beverage Monitoring/Evaluation: Total energy intake, Total protein intake, Modified diet, Liquid supplement, Weight change Signed: Melly Rousseau, MS, RD, LD
[2018-11-28] MEDS: CEFTRIAXONE SOD 1 GM/NS 50 ML 50 ML IV SCH (17:30)
--- NOTE | 2018-11-28 19:13 | NUR ---
PT IS RESTING IN BED WITH HIS AT BEDSIDE. RESPIRATION IS EVEN AND UNLABORED, NO DISTRESS NOTED. BED IN THE LOWEST POSITION, LOCKED, BED ALARM ON, AND CALL LIGHT WITHIN REACH. WILL CONTINUE TO MONITOR.
[2018-11-28] MEDS: TAMSULOSIN HCL 0.4 MG CAP PO SCH (20:38)
[2018-11-28] MEDS: TEMAZEPAM 15 MG CAP PO SCH (20:38)
[2018-11-29] VITALS: BP 163/72
[2018-11-29 04:00] VITALS: BP 160/77
[2018-11-29] MEDS: SODIUM CHLORIDE 0.9% 1000ML 1,000 ML IV SCH (04:40)
--- NOTE | 2018-11-29 07:07 | NUR ---
D/C summary: Principal Dx: Complicated UTI due to carmichael Urinary retention Sepsis LYNDA Hyponatremia Secon[place] Dx: BPH PLAN IV abx IVF f/u cx Restart home meds 11/28 Klebsiella and Enterococcus UTIs. cont keflex. 11/29 improving; check labs; d/c planning d/c home f/u pcp 1 week and urology 1 week stable d/c>35mins Evangelist Blanco MD, PhD.
[2018-11-29] MEDS ORDERED: METOPROLOL TART50 MG PO (07:29)
[2018-11-29] MEDS ORDERED: KEFLEX500 MG PO (07:29)
[2018-11-29 07:45] LABS: BASOPHILS # (AUTO) 0.1 (0.0-0.1); BASOPHILS % 0.5 % (0.0-1.0); EOSINOPHILS # (AUTO) 0.2 (0.0-0.4); EOSINOPHILS % 1.7 % (0.0-6.0); HEMATOCRIT 29.6 % (38.2-49.6); HEMOGLOBIN 9.3 g/dL (14.0-18.0); LYMPHOCYTES # (AUTO) 1.2 (1.0-3.2); LYMPHOCYTES % 11.8 % (18.0-39.1); MEAN CORPUSCULAR HEMOGLOBIN 28.4 pg (28-32); MEAN CORPUSCULAR HGB CONC 31.4 g/dL (31-35); MEAN CORPUSCULAR VOLUME 90.5 fL (81-99); MONOCYTES # (AUTO) 1.5 (0.2-0.8); MONOCYTES % 14.4 % (4.4-11.3); NEUTROPHILS # (AUTO) 7.3 (2.1-6.9); PLATELET COUNT 298 x10e3/uL (140-360); RED BLOOD COUNT 3.27 x10e6/uL (4.3-5.7); RED CELL DISTRIBUTION WIDTH 14.9 % (11.7-14.4)
[2018-11-29 08:06] LABS: ANION GAP 7.1 mmol/L (8-16); BLOOD UREA NITROGEN 7 mg/dL (7-26); BUN/CREATININE RATIO 8 (6-25); CALCIUM 8.4 mg/dL (8.4-10.2); CARBON DIOXIDE 29 mmol/L (22-29); CHLORIDE 99 mmol/L (98-107); CREATININE, SERUM 0.88 mg/dL (0.72-1.25); EST GLOMERULAR FILTRATION RATE > 60 ML/MIN (60-); GLUCOSE 100 mg/dL (74-118); POTASSIUM 4.1 mmol/L (3.5-5.1); SODIUM 131 mmol/L (136-145)
[2018-11-29 08:18] VITALS: BP 136/65
[2018-11-29 08:29] VITALS: BP 136/65
[2018-11-29] MEDS: PANTOPRAZOLE SOD 40 MG TABEC PO SCH (08:45)
[2018-11-29] MEDS: METOPROLOL TARTRATE 50 MG TAB PO SCH ×2 (08:45→08:52)
--- NOTE | 2018-11-29 10:00 | NUR ---
The pt. and the spouse has been taught about switching the bedside drainage bag and the leg and they are both able to complete the task. The pt's iv was removed and band-aid was applied. They were both given discharge instructions and and escorted to private car for transport home.
[2018-12-27] MEDS ORDERED: FLOMAX0.4 MG PO (15:00)
[2018-12-27] MEDS ORDERED: XARELTO10 MG (15:00)
== END 2018-11-29 11:45 | disposition home or self-care (01) | DRG 698 ==
LOC: ER 19:10 → ERHOLD 20:46 → MED/SURG3 21:30
PROVIDERS: ADMIT Internal Medicine; ATTEND Internal Medicine
DX: T83.511A Infection and inflammatory reaction due to indwelling urethral catheter, initial encounter (principal); A41.9 Sepsis, unspecified organism; N17.9 Acute kidney failure, unspecified; E87.1 Hypo-osmolality and hyponatremia; E44.0 Moderate protein-calorie malnutrition; R33.9 Retention of urine, unspecified; N40.0 Benign prostatic hyperplasia without lower urinary tract symptoms; D64.9 Anemia, unspecified; Z68.20 Body mass index [BMI] 20.0-20.9, adult
CPT/HCPCS: 36415; 71045; 80048; 80053; 81001; 82550; 82553; 83605; 84484; 85025; 87040; 87086; 87186; 87449; 99284; J0696; J7030

== ENCOUNTER → 2018-12-22 | Outpatient (CLI) | payer MEDICARE ==
[~2018-12-22] MED LIST changes: +CEFUROXIME250 MG PO; +COLACE100 MG PO; +FLOMAX0.4 MG PO; +HYDROCHLOROTH12.5 M1 PO; +IRBESARTAN150 MG PO; +METOPROLOL TART50 MG PO; +REGADENOSON 0.4 MG/5 ML SYR IV ONE; +TYLENOL WITH C1 EACH PO; +XARELTO10 MG
--- NOTE | 2018-12-22 17:08 | Myoview Stress Test ---
DATE OF STUDY: 12/22/2018 08:12:00 Stress Test - Treadmill ONLY PROCEDURE TITLE: Rest/stress single isotope SPECT imaging with pharmacologic stress and gated SPECT imaging. INDICATION: Atrial fibrillation. PROCEDURE IN DETAIL: Pharmacologic stress testing was performed with regadenoson per protocol. The heart rate was 86 beats per minute at rest, increased to 109 beats per minute during the regadenoson infusion. The resting blood pressure was 111/80 mmHg, increased to 133/78 mmHg, which is a normal response. The resting electrocardiogram demonstrated atrial fibrillation. There were no ST-segment changes suggestive of myocardial ischemia. Next, myocardial perfusion imaging was performed at rest following the injection of 11 mCi of tetrofosmin. At peak pharmacologic effect, the patient was injected with 32.3 mCi of tetrofosmin. Gated post-stress tomographic imaging was performed. FINDINGS: The overall quality of study is good. Left ventricular cavity is noted to be normal size on the rest and stress studies. SPECT images demonstrate homogeneous tracer distribution throughout the myocardium. Gated SPECT imaging reveals normal myocardial thickening and wall motion. Left ventricular ejection fraction was calculated to be greater than 70%. IMPRESSION: Myocardial perfusion imaging is normal. Overall, left ventricular systolic function was normal without regional wall motion abnormalities. Lima Wetzel MD ABS/MODL /[id number]
== END ==
LOC: NM 07:53
PROVIDERS: ATTEND Internal Medicine
DX: R07.9 Chest pain, unspecified (principal)
CPT/HCPCS: 78452; 93017; A9502; J2785

== ENCOUNTER 2018-12-28 07:37 | Observation (INO) | payer MEDICARE ==
[2018-12-26 15:43] LABS: BASOPHILS # (AUTO) 0.1 (0.0-0.1); BASOPHILS % 0.7 % (0.0-1.0); EOSINOPHILS # (AUTO) 0.2 (0.0-0.4); EOSINOPHILS % 2.2 % (0.0-6.0); HEMATOCRIT 36.3 % (38.2-49.6); HEMOGLOBIN 11.4 g/dL (14.0-18.0); LYMPHOCYTES # (AUTO) 1.4 (1.0-3.2); MEAN CORPUSCULAR HEMOGLOBIN 29.2 pg (28-32); MEAN CORPUSCULAR HGB CONC 31.4 g/dL (31-35); MEAN CORPUSCULAR VOLUME 93.1 fL (81-99); MONOCYTES % 13.6 % (4.4-11.3); PLATELET COUNT 395 x10e3/uL (140-360); RED CELL DISTRIBUTION WIDTH 15.1 % (11.7-14.4)
[~2018-12-28] VITALS: Ht 182.9 cm; Wt 70.3 kg
[~2018-12-28 07:37] MED LIST changes: -CEFUROXIME250 MG PO; -COLACE100 MG PO; -REGADENOSON 0.4 MG/5 ML SYR IV ONE; -TYLENOL WITH C1 EACH PO
--- OUTSIDE RECORDS SUMMARY | 2018-12-28 07:42 | XMS REPORT | Continuity of Care Document ---
Author Author [employer] Address Unknown Phone Unavailable Care Team Providers Care Budget Analyst Name Role Phone [employer] Information [employer] Unavailable Unavailable Problems Problem Status Onset Date Classification Date Reported Comments Source Benign prostatic hyperplasia with lower urinary tract symptoms 12/13/2017 06/22/2018 [facility] UNK Active 11/17/2017 [facility] M60.9 - "MYOSITIS, UNSPECIFIED" Active 08/20/2016 [facility] 788.20 - RETENTION OF UR 600.01 - BPH W Active 11/21/2014 [facility] Final: Radiculopathy, lumbar region 03/13/2017 [facility] Final: Spinal stenosis, lumbar region without neurogenic claudication 03/13/2017 [facility] Final: Other intervertebral disc degeneration, lumbar region 03/13/2017 [facility] Bladder-neck obstruction 06/22/2018 [facility] Other retention of urine 06/22/2018 [facility] Dorsalgia, unspecified 06/22/2018 [facility] Unspecified asthma, uncomplicated 06/22/2018 [facility] Anemia, unspecified 06/22/2018 [facility] Diaphragmatic hernia without obstruction or gangrene 06/22/2018 [facility] Gastro-esophageal reflux disease without esophagitis 06/22/2018 [facility] Essential hypertension 06/22/2018 [facility] Major depressive disorder, single episode, unspecified 06/22/2018 [facility] Atherosclerotic heart disease of hopi coronary artery without angina pectoris 06/22/2018 [facility] Cardiac arrhythmia, unspecified 06/22/2018 [facility] Polyneuropathy, unspecified 06/22/2018 [facility] Anxiety disorder, unspecified 06/22/2018 [facility] Personal history of other malignant neoplasm of large intestine 06/22/2018 [facility] Personal history of antineoplastic chemotherapy 06/22/2018 [facility] floorperson use of aspirin 06/22/2018 [facility] Personal history of nicotine dependence 06/22/2018 [facility] Anxiety Active Problem 06/22/2018 [facility] BPH (Confirmed) Active Problem 06/22/2018 [facility] BBB (Confirmed) Active Problem 06/22/2018 [facility] SOB (Confirmed)1 Active Problem 06/22/2018 with anxiety [facility] GERD (Confirmed) Active Problem 06/22/2018 [facility] HTN (Confirmed) Active Problem 06/22/2018 [facility] Colon cancer Resolved Problem 06/22/2018 [facility] Anxiety (finding) Active Problem 11/09/2018 [facility] Benign prostatic hyperplasia (disorder) Active Problem 11/09/2018 [facility] Bundle branch block (disorder) Active Problem 11/09/2018 [facility] Dyspnea (finding) Active Problem 11/09/2018 with anxiety [facility] Gastroesophageal reflux disease (disorder) Active Problem 11/09/2018 [facility] Hypertensive disorder, systemic arterial (disorder) Active Problem 11/09/2018 [facility] Malignant tumor of colon (disorder) Resolved Problem 11/09/2018 [facility] Medications Medication Details Route Status Patient Instructions Ordering Provider Order Date Source Tamsulosin hydrochloride 0.4 MG Oral Capsule [Flomax] 0.4 mg=1 cap, PO, Daily, # 30 cap, 0 Refill(s), Pharmacy: [facility] #[id number] Active 11/04/2018 [facility] Phenazopyridine hydrochloride 100 MG Oral Tablet [Pyridium] 100 mg=1 tab, PO, TID, PRN Dysuria, X 3 day, # 10 tab, 0 Refill(s), Pharmacy: [facility] #[id number] Active 11/04/2018 [facility] doxycycline hyclate 100 MG Oral Capsule 100 mg=1 cap, PO, BID, 0 Refill(s) Active 11/02/2018 [facility] Zofran ODT 4 mg, Route: PO, Drug form: TABDIS, ONCE, Dosing Weight 69.545, kg, Start date: 12/03/17 11:48:00 CDT, Stop date: 12/03/17 11:48:00 CDT Inactive 2017 [facility] Dexamethasone 4 mg, Route: IVP, ONCE, Dosing Weight 69.545, kg, PRN Nausea & Vomiting, Start date: 12/03/17 10:33:00 CDT Inactive 2017 [facility] Ondansetron 4 mg, Route: IVP, ONCE, Dosing Weight 69.545, kg, PRN Nausea & Vomiting, Start date: 12/03/17 10:33:00 CDT Inactive 2017 [facility] Oxycodone 5 mg, Route: PO, Drug form: LIQ, Q4H, Dosing Weight 69.545, kg, PRN Pain Score 7-10, Start date: 12/03/17 10:33:00 CDT, Duration: 30 day, Stop date: 01/02/18 10:32:00 CDT Inactive 2017 [facility] Fentanyl 25 microgram, Route: IVP, Q5Min, Dosing Weight 69.545, kg, PRN Pain Score 4-6, Priority: Routine, Start date: 12/03/17 10:33:00 CDT, Duration: 4 doses or times, Stop date: Limited # of times Inactive 2017 [facility] Albuterol 0.83 MG/ML Inhalant Solution 2.49 mg, Route: NEB, Q20Min, Dosing Weight 69.545, kg, PRN Wheezing, Priority: STAT, Start date: 12/03/17 10:33:00 CDT, Duration: 30 day, Stop date: 01/02/18 10:32:00 CDT Inactive 2017 [facility] Naloxone 0.4 mg, Route: IVP, Q2MIN, Dosing Weight 69.545, kg, PRN Narcotic Reversal, Start date: 12/03/17 10:33:00 CDT, Duration: 8 doses or times, Stop date: Limited # of times Inactive 2017 [facility] Flumazenil 0.2 mg, Route: IVP, PRN, Dosing Weight 69.545, kg, PRN Benzodiazepine Reversal, Initial dose, Start date: 12/03/17 10:33:00 CDT, Duration: 30 day, Stop date: 01/02/18 10:32:00 CDT Inactive 2017 [facility] Sulfamethoxazole 800 MG / Trimethoprim 160 MG Oral Tablet [Bactrim] 1 tab, PO, BID, # 14 tab, 0 Refill(s) Active 2017 [facility] Hydromorphone 0.3 mg, Route: IVP, Q3H, Dosing Weight 69.545, kg, PRN Pain Score 4-6, Start date: 12/03/17 10:18:00 CDT, Duration: 30 day, Stop date: 01/02/18 10:17:00 CDT Inactive 2017 [facility] Belladonna Alkaloids 16.2 MG / Opium 30 MG Rectal Suppository 1 supp, Route: LA, Dosing Weight 69.545, kg, Q6H, PRN Bladder Spasm, Start date: 12/03/17 10:18:00 CDT, Duration: 30 day, Stop date: 01/02/18 10:17:00 CDT Inactive 2017 [facility] neostigmine (ANES) Route: IV, Drug form: INJ, ONCE, Stop date: 12/03/17 10:15:00 CDT Inactive 2017 [facility] glycopyrrolate (ANES) Route: IV, Drug form: INJ, ONCE, Stop date: 12/03/17 10:15:00 CDT Inactive 2017 [facility] ePHEDrine (ANES) Route: IV, Drug form: INJ, ONCE, Stop date: 12/03/17 10:08:00 CDT Inactive 2017 [facility] rocuronium (ANES) Route: IV, Drug form: INJ, ONCE, Stop date: 12/03/17 10:03:00 CDT Inactive 2017 [facility] propofol (ANES) Route: IV, Drug form: INJ, ONCE, Stop date: 12/03/17 10:03:00 CDT Inactive 2017 [facility] lidocaine (ANES) Route: IV, Drug form: INJ, ONCE, Stop date: 12/03/17 10:03:00 CDT Inactive 2017 [facility] fentaNYL (ANES) Route: IV, Drug form: INJ, ONCE, Stop date: 12/03/17 10:03:00 CDT Inactive 2017 [facility] levofloxacin (ANES) 5 mg Route: IV, Drug form: INJ, Start date: 12/03/17 9:26:00 CDT, Stop date: 12/03/17 10:26:00 CDT Inactive 2017 [facility] Lactated Ringers Injection IV (ANES) 1000 mL Route: IV, Total Volume: 1,000, Start date: 12/03/17 9:12:00 CDT, Stop date: 12/03/17 10:12:00 CDT Inactive 2017 [facility] Calcium Chloride 0.0014 MEQ/ML / Potassium Chloride 0.004 MEQ/ML / Sodium Chloride 0.103 MEQ/ML / Sodium Lactate 0.028 MEQ/ML Injectable Solution 1,000 mL, Rate: 25 ml/hr, Infuse over: 40 hr, Route: IV, Dosing Weight 69.545 kg, Total Volume: 1,000, Start date: 12/03/17 7:41:00 CDT, Duration: 30 day, Stop date: 01/02/18 7:40:00 CDT, 1.87, m2 Inactive 2017 [facility] tamsulosin 0.4 mg oral capsule 0.4 mg=1 cap, PO, Daily, 0 Refill(s) Active 11/25/2017 [facility] Hydrochlorothiazide 12.5 MG / Losartan Potassium 100 MG Oral Tablet 1 tab, PO, Daily, 0 Refill(s) Active 11/25/2017 [facility] Aspirin 81 MG Chewable Tablet 81 mg=1 tab, CHEW, Daily, 0 Refill(s) Active 11/25/2017 [facility] pantoprazole 20 mg oral enteric coated tablet 20 mg=1 tab, PO, Daily, 0 Refill(s) Active 11/25/2017 [facility] temazepam 30 mg oral capsule 30 mg=1 cap, PO, Bedtime, PRN Sleep, # 14 cap, 0 Refill(s) Active 11/25/2017 [facility] multivitamin Daily, 0 Refill(s) Active 11/25/2017 [facility] Align 4 mg, PO, Daily, 0 Refill(s) Active 11/25/2017 [facility] Olmesartan Med/Amlodipine/Hctz (Tribenzor 40-5-12.5 Mg Tablet) 1 Each Tablet, Daily Active 08/13/2016 [facility] Sennosides/Docusate Sodium (Senna-Docusate Sodium Tablet) 1 Each Tablet, 5 2 At Bedtime Active 08/13/2016 [facility] Erythromycin Base (Erythromycin) 500 Mg Tablet, 500 Mg Oral Twice A Day Active 09/04/2011 [facility] Hydrocodone Bit/Acetaminophen (Hydrocodone-Apap 10-650 Mg Tab) 1 Each Tablet, 1 Each Oral Active 09/04/2011 [facility] Hydrocodone Bit/Acetaminophen (Hydrocodone-Apap 10-325 Tablet) 1 Each Tablet, 1 Each Oral Three Times A Day Active 09/04/2011 [facility] Aspirin (Aspir 81) 81 Mg Tablet. Daily Active [facility] Lisinopril 10 Mg Tablet Daily Active [facility] Pantoprazole Sodium (Protonix) 40 Mg Tablet. Daily Active [facility] Tamsulosin Hcl 0.4 Mg Cap.er.24h Daily Active [facility] Temazepam 15 Mg Capsule Daily Active [facility] Allergies, Adverse Reactions, Alerts Substance Category Reaction Severity Reaction type Status Date Reported Comments Source Ciprofloxacin NAUSEA Mild Allergy to Substance Active 08/13/2016 [facility] Cipro Assertion Drug allergy Active [facility] Augmentin Assertion Drug allergy Active [facility] Immunizations No Data Provided for This [...] should be multiplied by the estimated BMI. [facility] CHEM PANEL Chloride Lvl 101 95 - 109 11/25/2017 [facility] CHEM PANEL Calcium Lvl 9.2 8.5 - 10.5 11/25/2017 [facility] CHEM PANEL CO2 30 24 - 32 11/25/2017 [facility] CHEM PANEL Potassium Lvl 4.8 3.5 - 5.1 11/25/2017 [facility] CHEM PANEL Sodium Lvl 138 135 - 145 11/25/2017 [facility] CHEM PANEL BUN 15 7 - 22 11/25/2017 [facility] CHEM PANEL Glucose Lvl 102 70 - 99 11/25/2017 [facility] CHEM PANEL Creatinine Lvl 1.55 0.50 - 1.40 11/25/2017 [facility] CHEM PANEL AGAP 11.8 10.0 - 20.0 11/25/2017 [facility] HEMATOLOGY PTT 39.6 22.9 - 35.8 11/25/2017 [facility] HEMATOLOGY PT 14.1 12.0 - 14.7 11/25/2017 [facility] HEMATOLOGY INR 1.09 0.85 - 1.17 11/25/2017 [facility] HEMATOLOGY Basophils 1.4 0.0 - 1.0 11/25/2017 [facility] HEMATOLOGY Lymphocytes # 1.7 1.0 - 5.5 11/25/2017 [facility] HEMATOLOGY Neutrophils # 4.6 1.5 - 8.1 11/25/2017 [facility] HEMATOLOGY Monocytes # 0.9 0.0 - 0.8 11/25/2017 [facility] HEMATOLOGY Segs 61.8 45.0 - 75.0 11/25/2017 [facility] HEMATOLOGY Basophils # 0.1 0.0 - 0.2 11/25/2017 [facility] HEMATOLOGY Eosinophils 1.2 0.0 - 4.0 11/25/2017 [facility] HEMATOLOGY Monocytes 12.4 2.0 - 12.0 11/25/2017 [facility] HEMATOLOGY Eosinophils # 0.1 0.0 - 0.5 11/25/2017 [facility] HEMATOLOGY Lymphocytes 23.2 20.0 - 40.0 11/25/2017 [facility] HEMATOLOGY MPV 8.4 7.4 - 10.4 11/25/2017 [facility] HEMATOLOGY RDW 14.0 11.5 - 14.5 11/25/2017 [facility] HEMATOLOGY Platelet 367 133 - 450 11/25/2017 [facility] HEMATOLOGY MCV 90.5 80.0 - 94.0 11/25/2017 [facility] HEMATOLOGY MCHC 34.2 32.0 - 36.0 11/25/2017 [facility] HEMATOLOGY MCH 30.9 27.0 - 31.0 11/25/2017 [facility] HEMATOLOGY RBC 3.66 4.70 - 6.10 11/25/2017 [facility] HEMATOLOGY WBC 7.5 3.7 - 10.4 11/25/2017 [facility] HEMATOLOGY Hgb 11.3 14.0 - 18.0 11/25/2017 [facility] HEMATOLOGY Hct 33.1 42.0 - 54.0 11/25/2017 [facility] URINE AND STOOL UA RBC 4 0 - 2 11/25/2017 [facility] URINE AND STOOL UA Urobilinogen <=1.0 mg/dL 0.1 - 1.0 11/25/2017 [facility] URINE AND STOOL UA Leuk Est Large *ABN* (11/25/17 2:48 PM) Negative 11/25/2017 [facility] URINE AND STOOL UA Sq Epi Occasional /LPF Few /LPF 11/25/2017 [facility] URINE AND STOOL UA WBC 11 0 - 5 11/25/2017 [facility] URINE AND STOOL UA Turbidity Clear (11/25/17 2:48 PM) Clear 11/25/2017 [facility] URINE AND STOOL UA Color Yellow *NA* (11/25/17 2:48 PM) Yellow 11/25/2017 [facility] URINE AND STOOL UA Spec Grav 1.011 <=1.030 11/25/2017 [facility] URINE AND STOOL UA pH 5.0 5.0 - 8.0 11/25/2017 [facility] URINE AND STOOL UA Nitrite Negative (11/25/17 2:48 PM) Negative 11/25/2017 [facility] URINE AND STOOL UA Blood Moderate *ABN* (11/25/17 2:48 PM) Negative 11/25/2017 [facility] URINE AND STOOL UA Bili Negative *NA* (11/25/17 2:48 PM) Negative 11/25/2017 [facility] URINE AND STOOL UA Ketones Negative mg/dL Negative mg/dL 11/25/2017 [facility] URINE AND STOOL UA Protein Negative mg/dL Negative mg/dL 11/25/2017 [facility] URINE AND STOOL UA Glucose Negative mg/dL Negative mg/dL 11/25/2017 [facility] Culture: Urine <10,000 CFU/mL Skin Brigette 11/25/2017 [facility] Pathology Reports No Data Provided for This Section Diagnostic Reports Report Value Date Source Spine lumbar wo contrast MRI Spine lumbar wo contrast MRI 03/10/2017 4:36 PM [employer] [employer]: M54.16 Radiculopathy, lumbar region - M54.16 [...] Comments Source Systolic (mm Hg) 136 2017 [facility] Diastolic (mm Hg) 62 2017 [facility] Systolic (mm Hg) 140 2017 [facility] Diastolic (mm Hg) 60 2017 [facility] Systolic (mm Hg) 162 2017 [facility] Diastolic (mm Hg) 90 2017 [facility] Respitory Rate 16 2017 [facility] Respitory Rate 19 2017 [facility] Respitory Rate 20 2017 [facility] Heart Rate 87 2017 [facility] Heart Rate 84 11/25/2017 [facility] BMI Calculated 21.38 11/25/2017 [facility] Height 180.34 cm 11/25/2017 [facility] Weight 69.545 11/25/2017 [facility] Encounters Location Location Details Encounter Type Encounter Number Reason For Visit Attending Provider ADM Date DC Date Status Source [facility] [id number] Jeremiah Zena 12/18/2014 12/19/2014 CODI Alvareza [facility] [id number] [facility] 08/25/2016 08/26/2016 CODI Armstrong [facility] [id number] Bettina Daugherty 03/10/2017 03/11/2017 C[facility] Armstrong Departed Emergency Room [id number] DOROTHEA BROOKS MD 11/12/2017 11/12/2017 [facility] Day Surgery [id number] Jeremiah Freitas 2017 2017 [facility] Outpatient [id number] [facility] 11/02/2018 Active [id number] [facility]2018 [facility] Outpatient [id number] [facility] 11/07/2018 Active [facility] Ambulatory Pre-Reg [id number] [facility] 11/07/2018 11/07/2018 [facility] Procedures Procedure Code Date Perfomer Comments Source Measurement of post-voiding residual urine and/or bladder capacity by ultrasound, non-imaging 38989 11/02/2018 [facility] Appendectomy [id number] 04/12/2010 [facility] Cholecystectomy [id number] 04/12/2010 [facility] Colon operation [id number] 04/12/2010 [facility] CTR - Carpal tunnel release [id number] [facility] Operation [id number] [facility] Tonsillectomy [id number] [facility] Assessment and Plan No Data Provided [...] [facility] Social History Social History Date Source Social [...] [facility] No data available for this section 03/11/2017 [facility] Family History No Data Provided for This Section Advance Directives Order Name Results Value Date Source Advance Directives Advance Directives Directive Response Recorded Date/Time Does the patient have an advance directive? Yes 08/23/11 6:00pm If yes, is advance directive on file with [facility]? Yes 08/13/16 6:25pm If not on file with [facility] will patient provide a copy? Yes 08/23/11 6:00pm Do you have a Directive to Physician? No 11/12/17 9:50pm Do you have a Medical Power of Child Study Team Director? Yes 11/12/17 9:50pm Do you have an [...] [facility] Functional Status No Data Provided for This Section
[2018-12-28] MEDS ORDERED: GENTAMICIN 80MG/NS 100 ML 100 ML IV ONE (07:54)
[2018-12-28] MEDS ORDERED: CEFTRIAXONE SOD 1 GM/NS 50 ML 50 ML IV ONE (07:54)
[2018-12-28] MEDS ORDERED: ACETAMINOPHEN 1000 MG/100 ML 100 ML IV ONE (08:00)
[2018-12-28] MEDS ORDERED: B&O 60MG R/S 60 MG SUPP PR ONE (08:16)
[2018-12-28] MEDS ORDERED: IOPAMIDOL 610MG/1ML 300 MG/ML VIAL IV ONE (08:16)
[2018-12-28] MEDS ORDERED: B&O 60MG R/S 60 MG SUPP PR PRN (10:00)
[2018-12-28] MEDS ORDERED: DIPHENHYDRAMINE HCL 25 MG CAP PO PRN (10:00)
[2018-12-28] MEDS ORDERED: ONDANSETRON HCL INJ 2MG/ML 2ML 2 MG/ML VIAL IV PRN (10:00)
[2018-12-28] MEDS ORDERED: ACETAMINOPHEN/CODEINE 300MG - 30MG TAB PO PRN (10:00)
--- OUTSIDE RECORDS SUMMARY | 2018-12-28 10:15 | XMS REPORT | Continuity of Care Document ---
Author Author [employer] Address Unknown Phone Unavailable Care Team Providers Care Custom Bow Maker Name Role Phone Wix Information [place] Unavailable Unavailable Problems Problem Status Onset Date Classification Date Reported Comments Source Benign prostatic hyperplasia with lower urinary tract symptoms 12/13/2017 06/22/2018 [facility] UNK Active 11/17/2017 [facility] M60.9 - "MYOSITIS, UNSPECIFIED" Active 08/20/2016 [facility] 788.20 - RETENTION OF UR 600.01 - BPH W Active 11/21/2014 [facility] Final: Radiculopathy, lumbar region 03/13/2017 [facility] Final: Spinal stenosis, lumbar region without neurogenic claudication 03/13/2017 [facility] Final: Other intervertebral disc degeneration, lumbar region 03/13/2017 [facility] Bladder-neck obstruction 06/22/2018 [facility] Other retention of urine 06/22/2018 [facility] Dorsalgia, unspecified 06/22/2018 [facility] Unspecified asthma, uncomplicated 06/22/2018 [facility] Anemia, unspecified 06/22/2018 [facility] Diaphragmatic hernia without obstruction or gangrene 06/22/2018 [facility] Gastro-esophageal reflux disease without esophagitis 06/22/2018 [facility] Essential hypertension 06/22/2018 [facility] Major depressive disorder, single episode, unspecified 06/22/2018 [facility] 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 06/22/2018 [facility] Cardiac arrhythmia, unspecified 06/22/2018 [facility] Polyneuropathy, unspecified 06/22/2018 [facility] Anxiety disorder, unspecified 06/22/2018 [facility] Personal history of other malignant neoplasm of large intestine 06/22/2018 [facility] Personal history of antineoplastic chemotherapy 06/22/2018 [facility] reporting developer use of aspirin 06/22/2018 [facility] Personal history of nicotine dependence 06/22/2018 [facility] Anxiety Active Problem 06/22/2018 [facility] BPH (Confirmed) Active Problem 06/22/2018 [facility] BBB (Confirmed) Active Problem 06/22/2018 [facility] SOB (Confirmed)1 Active Problem 06/22/2018 with anxiety [facility] GERD (Confirmed) Active Problem 06/22/2018 [facility] HTN (Confirmed) Active Problem 06/22/2018 [facility] Colon cancer Resolved Problem 06/22/2018 [facility] Anxiety (finding) Active Problem 11/09/2018 [facility] Benign prostatic hyperplasia (disorder) Active Problem 11/09/2018 [facility] Bundle branch block (disorder) Active Problem 11/09/2018 [facility] Dyspnea (finding) Active Problem 11/09/2018 with anxiety [facility] Gastroesophageal reflux disease (disorder) Active Problem 11/09/2018 [facility] Hypertensive disorder, systemic arterial (disorder) Active Problem 11/09/2018 [facility] Malignant tumor of colon (disorder) Resolved Problem 11/09/2018 [facility] Medications Medication Details Route Status Patient Instructions Ordering Provider Order Date Source Tamsulosin hydrochloride 0.4 MG Oral Capsule [Flomax] 0.4 mg=1 cap, PO, Daily, # 30 cap, 0 Refill(s), Pharmacy: [id number] Active 11/04/2018 [facility] Phenazopyridine hydrochloride 100 MG Oral Tablet [Pyridium] 100 mg=1 tab, PO, TID, PRN Dysuria, X 3 day, # 10 tab, 0 Refill(s), Pharmacy: [facility] #[id number] Active 11/04/2018 [facility] doxycycline hyclate 100 MG Oral Capsule 100 mg=1 cap, PO, BID, 0 Refill(s) Active 11/02/2018 [facility] Zofran ODT 4 mg, Route: PO, Drug form: TABDIS, ONCE, Dosing Weight 69.545, kg, Start date: 12/03/17 11:48:00 CDT, Stop date: 12/03/17 11:48:00 CDT Inactive 2017 [facility] Dexamethasone 4 mg, Route: IVP, ONCE, Dosing Weight 69.545, kg, PRN Nausea & Vomiting, Start date: 12/03/17 10:33:00 CDT Inactive 2017 [facility] Ondansetron 4 mg, Route: IVP, ONCE, Dosing Weight 69.545, kg, PRN Nausea & Vomiting, Start date: 12/03/17 10:33:00 CDT Inactive 2017 [facility] Oxycodone 5 mg, Route: PO, Drug form: LIQ, Q4H, Dosing Weight 69.545, kg, PRN Pain Score 7-10, Start date: 12/03/17 10:33:00 CDT, Duration: 30 day, Stop date: 01/02/18 10:32:00 CDT Inactive 2017 [facility] Fentanyl 25 microgram, Route: IVP, Q5Min, Dosing Weight 69.545, kg, PRN Pain Score 4-6, Priority: Routine, Start date: 12/03/17 10:33:00 CDT, Duration: 4 doses or times, Stop date: Limited # of times Inactive 2017 [facility] Albuterol 0.83 MG/ML Inhalant Solution 2.49 mg, Route: NEB, Q20Min, Dosing Weight 69.545, kg, PRN Wheezing, Priority: STAT, Start date: 12/03/17 10:33:00 CDT, Duration: 30 day, Stop date: 01/02/18 10:32:00 CDT Inactive 2017 [facility] Naloxone 0.4 mg, Route: IVP, Q2MIN, Dosing Weight 69.545, kg, PRN Narcotic Reversal, Start date: 12/03/17 10:33:00 CDT, Duration: 8 doses or times, Stop date: Limited # of times Inactive 2017 [facility] Flumazenil 0.2 mg, Route: IVP, PRN, Dosing Weight 69.545, kg, PRN Benzodiazepine Reversal, Initial dose, Start date: 12/03/17 10:33:00 CDT, Duration: 30 day, Stop date: 01/02/18 10:32:00 CDT Inactive 2017 [facility] Sulfamethoxazole 800 MG / Trimethoprim 160 MG Oral Tablet [Bactrim] 1 tab, PO, BID, # 14 tab, 0 Refill(s) Active 2017 [facility] Hydromorphone 0.3 mg, Route: IVP, Q3H, Dosing Weight 69.545, kg, PRN Pain Score 4-6, Start date: 12/03/17 10:18:00 CDT, Duration: 30 day, Stop date: 01/02/18 10:17:00 CDT Inactive 2017 [facility] Belladonna Alkaloids 16.2 MG / Opium 30 MG Rectal Suppository 1 supp, Route: DE, Dosing Weight 69.545, kg, Q6H, PRN Bladder Spasm, Start date: 12/03/17 10:18:00 CDT, Duration: 30 day, Stop date: 01/02/18 10:17:00 CDT Inactive 2017 [facility] neostigmine (ANES) Route: IV, Drug form: INJ, ONCE, Stop date: 12/03/17 10:15:00 CDT Inactive 2017 [facility] glycopyrrolate (ANES) Route: IV, Drug form: INJ, ONCE, Stop date: 12/03/17 10:15:00 CDT Inactive 2017 [facility] ePHEDrine (ANES) Route: IV, Drug form: INJ, ONCE, Stop date: 12/03/17 10:08:00 CDT Inactive 2017 [facility] rocuronium (ANES) Route: IV, Drug form: INJ, ONCE, Stop date: 12/03/17 10:03:00 CDT Inactive 2017 [facility] propofol (ANES) Route: IV, Drug form: INJ, ONCE, Stop date: 12/03/17 10:03:00 CDT Inactive 2017 [facility] lidocaine (ANES) Route: IV, Drug form: INJ, ONCE, Stop date: 12/03/17 10:03:00 CDT Inactive 2017 [facility] fentaNYL (ANES) Route: IV, Drug form: INJ, ONCE, Stop date: 12/03/17 10:03:00 CDT Inactive 2017 [facility] levofloxacin (ANES) 5 mg Route: IV, Drug form: INJ, Start date: 12/03/17 9:26:00 CDT, Stop date: 12/03/17 10:26:00 CDT Inactive 2017 [facility] Lactated Ringers Injection IV (ANES) 1000 mL Route: IV, Total Volume: 1,000, Start date: 12/03/17 9:12:00 CDT, Stop date: 12/03/17 10:12:00 CDT Inactive 2017 [facility] Calcium Chloride 0.0014 MEQ/ML / Potassium Chloride 0.004 MEQ/ML / Sodium Chloride 0.103 MEQ/ML / Sodium Lactate 0.028 MEQ/ML Injectable Solution 1,000 mL, Rate: 25 ml/hr, Infuse over: 40 hr, Route: IV, Dosing Weight 69.545 kg, Total Volume: 1,000, Start date: 12/03/17 7:41:00 CDT, Duration: 30 day, Stop date: 01/02/18 7:40:00 CDT, 1.87, m2 Inactive 2017 [facility] tamsulosin 0.4 mg oral capsule 0.4 mg=1 cap, PO, Daily, 0 Refill(s) Active 11/25/2017 [facility] Hydrochlorothiazide 12.5 MG / Losartan Potassium 100 MG Oral Tablet 1 tab, PO, Daily, 0 Refill(s) Active 11/25/2017 [facility] Aspirin 81 MG Chewable Tablet 81 mg=1 tab, CHEW, Daily, 0 Refill(s) Active 11/25/2017 [facility] pantoprazole 20 mg oral enteric coated tablet 20 mg=1 tab, PO, Daily, 0 Refill(s) Active 11/25/2017 [facility] temazepam 30 mg oral capsule 30 mg=1 cap, PO, Bedtime, PRN Sleep, # 14 cap, 0 Refill(s) Active 11/25/2017 [facility] multivitamin Daily, 0 Refill(s) Active 11/25/2017 [facility] Align 4 mg, PO, Daily, 0 Refill(s) Active 11/25/2017 [facility] Olmesartan Med/Amlodipine/Hctz (Tribenzor 40-5-12.5 Mg Tablet) 1 Each Tablet, Daily Active 08/13/2016 [facility] Sennosides/Docusate Sodium (Senna-Docusate Sodium Tablet) 1 Each Tablet, 5 2 At Bedtime Active 08/13/2016 [facility] Erythromycin Base (Erythromycin) 500 Mg Tablet, 500 Mg Oral Twice A Day Active 09/04/2011 [facility] Hydrocodone Bit/Acetaminophen (Hydrocodone-Apap 10-650 Mg Tab) 1 Each Tablet, 1 Each Oral Active 09/04/2011 [facility] Hydrocodone Bit/Acetaminophen (Hydrocodone-Apap 10-325 Tablet) 1 Each Tablet, 1 Each Oral Three Times A Day Active 09/04/2011 [facility] Aspirin (Aspir 81) 81 Mg Tablet. Daily Active [facility] Lisinopril 10 Mg Tablet Daily Active [facility] Pantoprazole Sodium (Protonix) 40 Mg Tablet. Daily Active [facility] Tamsulosin Hcl 0.4 Mg Cap.er.24h Daily Active [facility] Temazepam 15 Mg Capsule Daily Active [facility] Allergies, Adverse Reactions, Alerts Substance Category Reaction Severity Reaction type Status Date Reported Comments Source Ciprofloxacin NAUSEA Mild Allergy to Substance Active 08/13/2016 [facility] Cipro Assertion Drug allergy Active [facility] Augmentin Assertion Drug allergy Active [facility] Immunizations No Data Provided for This Section [...] should be multiplied by the estimated BMI. [facility] CHEM PANEL Chloride Lvl 101 95 - 109 11/25/2017 [facility] CHEM PANEL Calcium Lvl 9.2 8.5 - 10.5 11/25/2017 [facility] CHEM PANEL CO2 30 24 - 32 11/25/2017 [facility] CHEM PANEL Potassium Lvl 4.8 3.5 - 5.1 11/25/2017 [facility] CHEM PANEL Sodium Lvl 138 135 - 145 11/25/2017 [facility] CHEM PANEL BUN 15 7 - 22 11/25/2017 [facility] CHEM PANEL Glucose Lvl 102 70 - 99 11/25/2017 [facility] CHEM PANEL Creatinine Lvl 1.55 0.50 - 1.40 11/25/2017 [facility] CHEM PANEL AGAP 11.8 10.0 - 20.0 11/25/2017 [facility] HEMATOLOGY PTT 39.6 22.9 - 35.8 11/25/2017 [facility] HEMATOLOGY PT 14.1 12.0 - 14.7 11/25/2017 [facility] HEMATOLOGY INR 1.09 0.85 - 1.17 11/25/2017 [facility] HEMATOLOGY Basophils 1.4 0.0 - 1.0 11/25/2017 [facility] HEMATOLOGY Lymphocytes # 1.7 1.0 - 5.5 11/25/2017 [facility] HEMATOLOGY Neutrophils # 4.6 1.5 - 8.1 11/25/2017 [facility] HEMATOLOGY Monocytes # 0.9 0.0 - 0.8 11/25/2017 [facility] HEMATOLOGY Segs 61.8 45.0 - 75.0 11/25/2017 [facility] HEMATOLOGY Basophils # 0.1 0.0 - 0.2 11/25/2017 [facility] HEMATOLOGY Eosinophils 1.2 0.0 - 4.0 11/25/2017 [facility] HEMATOLOGY Monocytes 12.4 2.0 - 12.0 11/25/2017 [facility] HEMATOLOGY Eosinophils # 0.1 0.0 - 0.5 11/25/2017 [facility] HEMATOLOGY Lymphocytes 23.2 20.0 - 40.0 11/25/2017 [facility] HEMATOLOGY MPV 8.4 7.4 - 10.4 11/25/2017 [facility] HEMATOLOGY RDW 14.0 11.5 - 14.5 11/25/2017 [facility] HEMATOLOGY Platelet 367 133 - 450 11/25/2017 [facility] HEMATOLOGY MCV 90.5 80.0 - 94.0 11/25/2017 [facility] HEMATOLOGY MCHC 34.2 32.0 - 36.0 11/25/2017 [facility] HEMATOLOGY MCH 30.9 27.0 - 31.0 11/25/2017 [facility] HEMATOLOGY RBC 3.66 4.70 - 6.10 11/25/2017 [facility] HEMATOLOGY WBC 7.5 3.7 - 10.4 11/25/2017 [facility] HEMATOLOGY Hgb 11.3 14.0 - 18.0 11/25/2017 [facility] HEMATOLOGY Hct 33.1 42.0 - 54.0 11/25/2017 [facility] URINE AND STOOL UA RBC 4 0 - 2 11/25/2017 [facility] URINE AND STOOL UA Urobilinogen <=1.0 mg/dL 0.1 - 1.0 11/25/2017 [facility] URINE AND STOOL UA Leuk Est Large *ABN* (11/25/17 2:48 PM) Negative 11/25/2017 [facility] URINE AND STOOL UA Sq Epi Occasional /LPF Few /LPF 11/25/2017 [facility] URINE AND STOOL UA WBC 11 0 - 5 11/25/2017 [facility] URINE AND STOOL UA Turbidity Clear (11/25/17 2:48 PM) Clear 11/25/2017 [facility] URINE AND STOOL UA Color Yellow *NA* (11/25/17 2:48 PM) Yellow 11/25/2017 [facility] URINE AND STOOL UA Spec Grav 1.011 <=1.030 11/25/2017 [facility] URINE AND STOOL UA pH 5.0 5.0 - 8.0 11/25/2017 [facility] URINE AND STOOL UA Nitrite Negative (11/25/17 2:48 PM) Negative 11/25/2017 [facility] URINE AND STOOL UA Blood Moderate *ABN* (11/25/17 2:48 PM) Negative 11/25/2017 [facility] URINE AND STOOL UA Bili Negative *NA* (11/25/17 2:48 PM) Negative 11/25/2017 [facility] URINE AND STOOL UA Ketones Negative mg/dL Negative mg/dL 11/25/2017 [facility] URINE AND STOOL UA Protein Negative mg/dL Negative mg/dL 11/25/2017 [facility] URINE AND STOOL UA Glucose Negative mg/dL Negative mg/dL 11/25/2017 [facility] Culture: Urine <10,000 CFU/mL Skin Brigette 11/25/2017 [facility] Pathology Reports No Data Provided for This Section Diagnostic Reports Report Value Date Source Spine lumbar wo contrast MRI Spine lumbar wo contrast MRI 03/10/2017 4:36 PM [employer] [facility]ICAL: M54.16 Radiculopathy, lumbar region - M54.16 [...] Comments Source Systolic (mm Hg) 136 2017 [facility] Diastolic (mm Hg) 62 2017 [facility] Systolic (mm Hg) 140 2017 [facility] Diastolic (mm Hg) 60 2017 [facility] Systolic (mm Hg) 162 2017 [facility] Diastolic (mm Hg) 90 2017 [facility] Respitory Rate 16 2017 [facility] Respitory Rate 19 2017 [facility] Respitory Rate 20 2017 [facility] Heart Rate 87 2017 [facility] Heart Rate 84 11/25/2017 [facility] BMI Calculated 21.38 11/25/2017 [facility] Height 180.34 cm 11/25/2017 [facility] Weight 69.545 11/25/2017 [facility] Encounters Location Location Details Encounter Type Encounter Number Reason For Visit Attending Provider ADM Date DC Date Status Source [facility] [place] [facility] [id number] Jeremiah Zena 12/18/2014 12/19/2014 CODI Alvareza [facility] [place] [facility] [id number] [facility] 08/25/2016 08/26/2016 CODI Armstrong [facility] [place] [facility] [id number] Bettina Daugherty 03/10/2017 03/11/2017 CODI Armstrong Departed Emergency Room [id number] DOROTHEA BROOKS MD 11/12/2017 11/12/2017 [facility] Day Surgery [id number] Jeremiah Freitas 2017 2017 [facility] [id number] [facility] 11/02/2018 Active [id number] Out[facility] [id number] [facility] [place] 11/07/2018 Active [facility] Pre-Reg [id number] [facility] [place] 11/07/2018 11/07/2018 [facility] Procedures Procedure Code Date Perfomer Comments Source Measurement of post-voiding residual urine and/or bladder capacity by ultrasound, non-imaging 08246 11/02/2018 [facility] Appendectomy [id number] 04/12/2010 [facility] Cholecystectomy [id number] 04/12/2010 [facility] Colon operation [id number] 04/12/2010 [facility] CTR - Carpal tunnel release [id number] [facility] Operation [id number] [facility] Tonsillectomy [id number] [facility] Assessment and Plan No Data Provided [...] urine output, fever, abdominal pain, vomiting 11/12/2017 [facility] Social History Social History Date Source [...] 08/23/2011 6:00pm Not Applicable Not Applicable 11/12/2017 [facility] No data available for this section 03/11/2017 [facility] Family History No Data Provided for This Section Advance Directives Order Name Results Value Date Source Advance Directives Advance Directives Directive Response Recorded Date/Time Does the patient have an advance directive? Yes 08/23/11 6:00pm If yes, is advance directive on file with [facility]? Yes 08/13/16 6:25pm If not on file with [facility] will patient provide a copy? Yes 08/23/11 6:00pm Do you have a Directive to Physician? No 11/12/17 9:50pm Do you have a Medical Power of Beer Maker? Yes 11/12/17 9:50pm Do you have [...] rights and responsibilities? Yes 11/12/17 9:50pm 11/12/2017 [facility] Functional Status No Data Provided for This Section
[2018-12-28 10:49] LABS: BASOPHILS # (AUTO) 0.1 (0.0-0.1); BASOPHILS % 0.3 % (0.0-1.0); EOSINOPHILS # (AUTO) 0.2 (0.0-0.4); EOSINOPHILS % 1.3 % (0.0-6.0); HEMATOCRIT 32.6 % (38.2-49.6); HEMOGLOBIN 10.2 g/dL (14.0-18.0); LYMPHOCYTES # (AUTO) 1.6 (1.0-3.2); LYMPHOCYTES % 10.6 % (18.0-39.1); MEAN CORPUSCULAR HEMOGLOBIN 29.5 pg (28-32); MEAN CORPUSCULAR HGB CONC 31.3 g/dL (31-35); MEAN CORPUSCULAR VOLUME 94.2 fL (81-99); MONOCYTES % 6.4 % (4.4-11.3); PLATELET COUNT 301 x10e3/uL (140-360); RED BLOOD COUNT 3.46 x10e6/uL (4.3-5.7); RED CELL DISTRIBUTION WIDTH 14.8 % (11.7-14.4)
[2018-12-28] MEDS ORDERED: PROPOFOL IV EMULSION 10 MG/ML 20 ML VIAL ONE (10:58)
[2018-12-28] MEDS ORDERED: ONDANSETRON HCL INJ 2MG/ML 2ML 2 MG/ML VIAL ONE (10:58)
[2018-12-28] MEDS ORDERED: DEXAMETHASONE SOD PHOS INJ 4 MG/ML VIAL ONE (10:58)
[2018-12-28] MEDS ORDERED: SEVOFLURANE INHAL SOLN 250 ML PEN BTL ONE (10:58)
[2018-12-28] MEDS ORDERED: LIDOCAINE HCL 2% LOCAL INJ 5 ML SDV VIAL INJ ONE (10:58)
[2018-12-28 11:06] LABS: ANION GAP 10.1 mmol/L (8-16); CALCIUM 8.2 mg/dL (8.4-10.2); CREATININE, SERUM 1.24 mg/dL (0.72-1.25); POTASSIUM 4.1 mmol/L (3.5-5.1)
[2018-12-28] MEDS ORDERED: FENTANYL CITRATE/PF 100MCG/2 ML INJ ONE ×2 (13:47→14:36)
[2018-12-28 15:55] VITALS: BP 154/96
[2018-12-28 16:17] VITALS: BP 154/96
[2018-12-28] MEDS: D5.45%NS/KCL 20MEQ 1,000 ML IV SCH ×3 (16:20→17:54)
[2018-12-28] MEDS: CEFTRIAXONE SOD 1 GM/NS 50 ML 50 ML IV SCH (16:56)
[2018-12-28] MEDS: PHENAZOPYRIDINE HCL 100 MG TAB PO SCH ×2 (16:57→17:43)
[2018-12-28] MEDS: DOCUSATE SODIUM 100 MG CAP PO SCH (17:04)
--- NOTE | 2018-12-28 19:23 | NUR ---
WALKING ROUNDS PERFORMED, RECEIVED PT LAYING SEMI FOWLERS IN BED, AAOX3, RR EVEN AND NON-LABORED, ON ROOM AIR. NO S/SX OF DISTRESS NOTED. RECEIVING CBI DRAINING TO CALIX. PALE ORANGE URINE NOTED. CBI BAG CHANGED. LEFT PT LAYING SEMI FOWLERS IN BED, BED IN LOW LOCKED POSITION, SIDE RAILS UPX2, CALL LIGHT AND PHONE WITHIN REACH.
[2018-12-28 20:00] VITALS: BP 146/72
--- NOTE | 2018-12-28 21:42 | NUR ---
SPOKE WITH MD SMART CONCERNING HOME MEDICATIONS. NEW ORDERS RECEIVED.
[2018-12-28] MEDS ORDERED: METOPROLOL TARTRATE 50 MG TAB PO SCH (21:45)
[2018-12-28] MEDS: TEMAZEPAM 15 MG CAP PO SCH (22:15)
[2018-12-29] VITALS (7 sets, daily range): BP systolic 105–143; BP diastolic 59–81
[2018-12-29] MEDS: D5.45%NS/KCL 20MEQ 1,000 ML IV SCH ×3 (00:35→16:24)
--- NOTE | 2018-12-29 05:57 | NUR ---
H&P cc: prostate reduction HPI: 77yoM, PCP Dr.Milton Tinoco, with hx urinary retention and complicated UTI, now for prostate reduction surgery. PMH: Complicated UTI with Klebsiella and Enterococcus on 11/2018, BPH s/p TURP, Colon cancer s/p right hemicolectomy, cholelithiasis s/p cholecystectomy, PAF PSHx: TURP, right hemicolectomy, cholecystectomy Allergies; see emr FH/SH:no illicits; family involved in care Meds; see MAR ROS: no f/c/s/N/V/D/GUZMAN/vision changes/skin rash/back pain v./s: revd PE: nad anicteric ns1s2 mod bs soft nt nd CALIX in place no e/t skin dry n. affect a&Ox3; romo labs/meds; revd A/P: BPH- s/p surgical reduction via TURP; iv ABX Urinary retention- s/p sx LYNDA - IVF Insomnia- temazepam HTN- antiHTN meds PAF- BB Constipation- bowel reg SCD; pepcid Evangelist Blanco MD, PhD.
[2018-12-29 06:08] LABS: BASOPHILS # (AUTO) 0.1 (0.0-0.1); BASOPHILS % 0.5 % (0.0-1.0); EOSINOPHILS # (AUTO) 0.1 (0.0-0.4); EOSINOPHILS % 0.7 % (0.0-6.0); HEMATOCRIT 33.8 % (38.2-49.6); HEMOGLOBIN 10.7 g/dL (14.0-18.0); LYMPHOCYTES # (AUTO) 1.5 (1.0-3.2); LYMPHOCYTES % 12.8 % (18.0-39.1); MEAN CORPUSCULAR HEMOGLOBIN 29.2 pg (28-32); MEAN CORPUSCULAR HGB CONC 31.7 g/dL (31-35); MEAN CORPUSCULAR VOLUME 92.3 fL (81-99); MONOCYTES # (AUTO) 1.8 (0.2-0.8); MONOCYTES % 15.3 % (4.4-11.3); NEUTROPHILS # (AUTO) 8.2 (2.1-6.9); NEUTROPHILS % 70.3 % (38.7-80.0); PLATELET COUNT 316 x10e3/uL (140-360); RED BLOOD COUNT 3.66 x10e6/uL (4.3-5.7); RED CELL DISTRIBUTION WIDTH 14.9 % (11.7-14.4)
[2018-12-29 06:37] LABS: ANION GAP 10.9 mmol/L (8-16); BLOOD UREA NITROGEN 10 mg/dL (7-26); BUN/CREATININE RATIO 9 (6-25); CALCIUM 8.4 mg/dL (8.4-10.2); CARBON DIOXIDE 27 mmol/L (22-29); CHLORIDE 106 mmol/L (98-107); CREATININE, SERUM 1.16 mg/dL (0.72-1.25); EST GLOMERULAR FILTRATION RATE > 60 ML/MIN (60-); GLUCOSE 117 mg/dL (74-118); POTASSIUM 4.9 mmol/L (3.5-5.1); SODIUM 139 mmol/L (136-145)
[2018-12-29 08:10] LABS: LYMPHOCYTES % (MANUAL) 12 % (19-48); MONOCYTES % (MANUAL) 16 % (3.4-9.0); NEUTROPHILS % (MANUAL) 72 % (40-74); PLATELET ESTIMATE ADEQUATE; RBC MORPHOLOGY COMMENT NORMAL
[2018-12-29] MEDS: PANTOPRAZOLE SOD 40 MG TABEC PO SCH (09:13)
[2018-12-29] MEDS: METOPROLOL TARTRATE 50 MG TAB PO SCH ×2 (09:13→20:17)
[2018-12-29] MEDS: PHENAZOPYRIDINE HCL 100 MG TAB PO SCH ×3 (09:13→17:06)
[2018-12-29] MEDS: DOCUSATE SODIUM 100 MG CAP PO SCH ×2 (09:14→16:24)
[2018-12-29] MEDS: CEFTRIAXONE SOD 1 GM/NS 50 ML 50 ML IV SCH (16:24)
--- NOTE | 2018-12-29 19:01 | NUR ---
WALKING ROUNDS PERFORMED, RECEIVED PT LAYING SEMI FOWLERS IN BED, AAOX3, RR EVEN AND NON-LABORED, ON ROOM AIR. NO S/SX OF DISTRESS NOTED. PT RECEIVING CBI TO CALIX, DRAINING YELLOW URINE TO BEDSIDE BAG. LEFT PT LAYING SEMI FOWLERS IN BED, BED IN LOW LOCKED POSITION, SIDE RAILS UPX2, CALL LIGHT AND PHONE WITHIN REACH.
--- NOTE | 2018-12-29 19:20 | NUR ---
SPOKE WITH MD SMART CONCERNING TRENDING ELEVATED POTASSIUM. WAS INSTRUCTED TO NOTIFY MD Jurgen GAYTAN ABOUT IVF. PAGE PLACED FOR MD Jurgen GAYTAN. WAITING FOR CALLBACK.
--- NOTE | 2018-12-29 19:39 | NUR ---
SPOKE WITH MD Jurgen GAYTAN CONCERNING POTASSIUM AND FLUIDS RATE. NEW ORDERS RECEIVED TO DECREASE RATE TO 75ML/HR.
[2018-12-29] MEDS: TEMAZEPAM 15 MG CAP PO SCH (20:17)
[2018-12-30] MEDS: D5.45%NS/KCL 20MEQ 1,000 ML IV SCH (02:21)
--- NOTE | 2018-12-30 05:44 | NUR ---
TRACTION TO CALIX NOTED TO BE REMOVED FROM PATIENT LEG, PT REPORTS IT JUST PULLED OFF. REMOVED TRACTION TAPE AND SECURED CALIX TO LEG WITH STATLOCK. CALIX CARE PERFORMED.
[2018-12-30] MEDS ORDERED: METOPROLOL TART50 MG PO (06:28)
[2018-12-30] MEDS ORDERED: COLACE100 MG PO (06:28)
[2018-12-30 06:43] LABS: BASOPHILS % 0.3 % (0.0-1.0); EOSINOPHILS # (AUTO) 0.4 (0.0-0.4); EOSINOPHILS % 3.1 % (0.0-6.0); HEMATOCRIT 33.7 % (38.2-49.6); HEMOGLOBIN 10.6 g/dL (14.0-18.0); LYMPHOCYTES # (AUTO) 1.1 (1.0-3.2); LYMPHOCYTES % 9.1 % (18.0-39.1); MEAN CORPUSCULAR HEMOGLOBIN 29.8 pg (28-32); MEAN CORPUSCULAR HGB CONC 31.5 g/dL (31-35); MEAN CORPUSCULAR VOLUME 94.7 fL (81-99); MONOCYTES # (AUTO) 1.8 (0.2-0.8); MONOCYTES % 14.6 % (4.4-11.3); NEUTROPHILS % 72.5 % (38.7-80.0); PLATELET COUNT 274 x10e3/uL (140-360); RED BLOOD COUNT 3.56 x10e6/uL (4.3-5.7); RED CELL DISTRIBUTION WIDTH 15.2 % (11.7-14.4)
--- NOTE | 2018-12-30 07:08 | NUR ---
DOWNTIME DOCUMENTATION FILED IN PAPER CHART FOR ASSESSMENT, NURSES NOTES, AND VITALS SIGNS.
[2018-12-30 07:09] LABS: ANION GAP 8.3 mmol/L (8-16); BLOOD UREA NITROGEN 8 mg/dL (7-26); BUN/CREATININE RATIO 8 (6-25); CALCIUM 8.4 mg/dL (8.4-10.2); CARBON DIOXIDE 29 mmol/L (22-29); CHLORIDE 105 mmol/L (98-107); CREATININE, SERUM 1.03 mg/dL (0.72-1.25); EST GLOMERULAR FILTRATION RATE > 60 ML/MIN (60-); GLUCOSE 100 mg/dL (74-118); POTASSIUM 4.3 mmol/L (3.5-5.1); SODIUM 138 mmol/L (136-145)
[2018-12-30 07:36] VITALS: BP 132/64
[2018-12-30 07:42] VITALS: BP 132/64
[2018-12-30] MEDS: PANTOPRAZOLE SOD 40 MG TABEC PO SCH (08:13)
[2018-12-30] MEDS: DOCUSATE SODIUM 100 MG CAP PO SCH (08:13)
[2018-12-30] MEDS: PHENAZOPYRIDINE HCL 100 MG TAB PO SCH (08:13)
[2018-12-30] MEDS: METOPROLOL TARTRATE 50 MG TAB PO SCH (08:14)
[2018-12-30 08:26] LABS: ANISOCYTOSIS SLIGHT; EOSINOPHILS % (MANUAL) 6 % (0-7); LYMPHOCYTES % (MANUAL) 9 % (19-48); MONOCYTES % (MANUAL) 9 % (3.4-9.0); NEUTROPHILS % (MANUAL) 76 % (40-74); PLATELET ESTIMATE ADEQUATE; PLATELET MORPHOLOGY COMMENT NORMAL; POIKILOCYTOSIS SLIGHT; RBC MORPHOLOGY COMMENT NORMAL
--- NOTE | 2018-12-30 09:00 | NUR ---
PAGED MD SMART FOR ORDERS ON DC VOICEMAIL LEFT . AWAITING FOR CALL BACK
[2018-12-30] MEDS ORDERED: TYLENOL WITH C1 EACH PO (09:58)
[2018-12-30] MEDS ORDERED: CEFUROXIME250 MG PO (10:00)
--- NOTE | 2018-12-30 11:45 | NUR ---
DISCHARGE INSTRUCTIONS AND PRESCRIPTIONS GIVEN. PT VERBALIZED UNDERSTANDING CALIX LEFT IN PLACE, LEG BAG TEACHING DONE WITH AND PT PT LEFT LEG BAG ON UNDERSTANDS REMOVAL OF CALIX CATH ON WEDNESDAY PT IV REMOVED, PRESSURE DRESSING APPLIED AND TAPED PT IS NOW OFF UNIT TO HOME
--- NOTE | 2019-02-07 06:29 | Operative Report ---
DATE OF PROCEDURE: 12/28/2018 SURGEON: Colt Moraes MD PREOPERATIVE DIAGNOSES: 1. Obstructive BPH. 2. Urinary tract infections. POSTOPERATIVE DIAGNOSES: 1. Obstructive BPH. 2. Urinary tract infections. OPERATION PERFORMED: 1. Cystourethroscopy with bilateral ureteral catheterization and retrograde ureteropyelography (separate procedure performed for the urinary tract infections). 2. Interpretation of retrograde ureteropyelography. 3. Supervision of fluoroscopy, no radiologist present. 4. Cystourethroscopy with transurethral resection of the prostate utilizing the plasma button electrode. ANESTHESIA: General. COMPLICATIONS: None. CLINICAL SUMMARY: Wellington Ramsey is a 78-year-old man, who has had previous transurethral resection of the prostate over years ago by another urologist. 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 He has residual apical tissue and scarring. This had signs and symptomatology of obstructive BPH. He is brought to the operating room in hopes of being able to improve his urination and avoid catheterizations. He is aware of the risks of bleeding, infection, injury to adjacent structures, incontinence, impotence, retrograde ejaculation, need for additional procedures and elected to proceed. OPERATIVE PROCEDURE IN DETAIL: Informed consent was verified. Wellington Ramsey was properly identified, taken to the operating room, and placed on the cystoscopy table in supine position. Anesthesia was uneventfully begun. The patient was then carefully gently repositioned in dorsal lithotomy position with all pressure points well padded. His genitalia were prepared and draped in the usual sterile fashion. The cystoscope sheath with the visual obturator in place was atraumatically inserted into the patient's urethra and it was guided unremarkably urethra through the normal sphincteric region through the prostate bed, which was significant for visual obstructing BPH in the apical portion of the prostate and scar in the more proximal portion of the prostate. We entered the patient's bladder. Panendoscopy revealed grade 4 trabeculation with small diverticular formation with no suspicious mucosal lesions, no tumors, and no stones were identified. An 8-Nepalese catheter was used to cannulate each ureter and retrograde ureteral pyelograms were performed. Interpretation of retrograde ureteropyelography contrast was instilled in retrograde fashion bilaterally. There were no tumors, no stones, and no diverticula. Unobstructed drainage was observed bilaterally fluoroscopically. The cystoscope was withdrawn. The resectoscope sheath was atraumatically placed. We then utilized the plasma button electrode to vaporize the prostate from the bladder neck to maneuver past the verumontanum and down the surgical capsule and pinpoint electrocautery was utilized to achieve hemostasis. The resectoscope was then withdrawn. The Lim catheter was placed. It was irrigated to and fro to ensure it worked properly. The continuous bladder irrigation was begun with clear efflux. A belladonna and opium suppository was placed revealing a 35 g prostate that is smooth, non-fluctuant and without any nodules. The patient was then uneventfully reversed from anesthesia and taken to the recovery room in stable condition. We will proceed with routine postoperative care and of course ongoing urological followup. There were no complications during the procedure. He tolerated procedure well. MD CALI Luna/ANJANA /[id number] cc: Jude Tinoco DO
== END 2018-12-30 11:40 | disposition home or self-care (01) ==
LOC: OR 07:37 → INTOOBSV 09:58 → PACU V 09:58 → MED/SURG 14:58
PROVIDERS: ADMIT Internal Medicine; ATTEND Internal Medicine
DX: N40.1 Benign prostatic hyperplasia with lower urinary tract symptoms (principal); N13.8 Other obstructive and reflux uropathy; N39.0 Urinary tract infection, site not specified; N31.2 Flaccid neuropathic bladder, not elsewhere classified; N18.9 Chronic kidney disease, unspecified; Z88.1 Allergy status to other antibiotic agents; Z79.01 Long term (current) use of anticoagulants; K21.9 Gastro-esophageal reflux disease without esophagitis; I48.91 Unspecified atrial fibrillation; Z85.038 Personal history of other malignant neoplasm of large intestine; I12.9 Hypertensive chronic kidney disease with stage 1 through stage 4 chronic kidney disease, or unspecified chronic kidney disease; F41.9 Anxiety disorder, unspecified
CPT/HCPCS: 36415 ×4; 52005; 52601; 74420; 80048 ×3; 82948; 83735; 85025 ×4; 96361; C1758; G0378 ×3; J0131; J0696 ×2; J1100; J1580; J2001; J2405; J2704; J3010; Q9967; S0164 ×2; 96360

== ENCOUNTER 2020-05-06 22:38 | Observation (INO) | payer MEDICARE ==
[~2020-05-06] VITALS: Ht 180.3 cm; Wt 72.1 kg
[~2020-05-06 22:38] MED LIST changes: +CEFUROXIME250 MG PO; +COLACE100 MG PO; +TYLENOL WITH C1 EACH PO
[2020-05-06] MEDS ORDERED: SODIUM CHLORIDE FLUSH 10 ML SYR INJ PRN (23:30)
[2020-05-06] MEDS ORDERED: SODIUM CHLORIDE 0.9% 1000ML 1,000 ML IV STA (23:55)
[2020-05-07] MEDS ORDERED: GLUCAGON FOR INJ 1 MG VIAL IV ONE
[2020-05-07] MEDS ORDERED: GLUCAGON FOR INJ 1 MG VIAL ONE (00:02)
[2020-05-07] MEDS ORDERED: ONDANSETRON HCL INJ 2MG/ML 2ML 2 MG/ML VIAL IV PRN (00:15)
[2020-05-07] MEDS ORDERED: SODIUM CHLORIDE 0.9% 1000ML 1,000 ML IV SCH (00:15)
[2020-05-07] MEDS ORDERED: AMITRIPTYLINE H25 MG PO (00:34)
[2020-05-07] MEDS ORDERED: LORAZEPAM2 MG/1 M1 PO (00:34)
[2020-05-07] MEDS ORDERED: XARELTO20 MG PO (00:34)
[2020-05-07] MEDS ORDERED: ATENOLOL50 MG PO (00:34)
[2020-05-07] MEDS ORDERED: MORPHINE SULFATE INJ 4 MG/ML INJ 1ML IV PRN (01:00)
[2020-05-07 01:50] VITALS: BP 160/80
[2020-05-07 02:13] VITALS: BP 160/80
[2020-05-07 05:22] VITALS: BP 152/97
[2020-05-07] MEDS ORDERED: METOPROLOL TARTRATE INJ 1 MG/ML VIAL IV PRN (07:00)
[2020-05-07] MEDS ORDERED: METOPROLOL TARTRATE 50 MG TAB PO SCH (07:00)
[2020-05-07 07:52] LABS: BASOPHILS # (AUTO) 0.1 (0.0-0.1); BASOPHILS % 0.5 % (0.0-1.0); EOSINOPHILS # (AUTO) 0.1 (0.0-0.4); EOSINOPHILS % 0.8 % (0.0-6.0); HEMOGLOBIN 14.2 g/dL (14.0-18.0); LYMPHOCYTES # (AUTO) 3.1 (1.0-3.2); LYMPHOCYTES % 23.6 % (18.0-39.1); MEAN CORPUSCULAR HEMOGLOBIN 30.4 pg (28-32); MEAN CORPUSCULAR HGB CONC 32.3 g/dL (31-35); MEAN CORPUSCULAR VOLUME 94.2 fL (81-99); MONOCYTES # (AUTO) 1.4 (0.2-0.8); MONOCYTES % 11.1 % (4.4-11.3); NEUTROPHILS # (AUTO) 8.2 (2.1-6.9); NEUTROPHILS % 63.6 % (38.7-80.0); PLATELET COUNT 287 x10e3/uL (140-360); RED BLOOD COUNT 4.67 x10e6/uL (4.3-5.7); RED CELL DISTRIBUTION WIDTH 13.3 % (11.7-14.4)
[2020-05-07 08:05] VITALS: BP 182/101
[2020-05-07 08:23] LABS: ANION GAP 14.9 mmol/L (8-16); CREATININE, SERUM 1.25 mg/dL (0.72-1.25); POTASSIUM 3.9 mmol/L (3.5-5.1)
[2020-05-07] MEDS ORDERED: TAMSULOSIN HCL 0.4 MG CAP PO SCH (09:00)
[2020-05-07] MEDS ORDERED: DOCUSATE SODIUM 100 MG CAP PO SCH (09:00)
[2020-05-07] MEDS ORDERED: PANTOPRAZOLE SOD 40 MG TABEC PO SCH (09:00)
[2020-05-07 10:00] VITALS: BP 136/70
[2020-05-07] MEDS ORDERED: LIDOCAINE HCL 2% LOCAL INJ 5 ML SDV VIAL INJ ONE (13:05)
[2020-05-07] MEDS ORDERED: PROPOFOL IV EMULSION 10 MG/ML 20 ML VIAL ONE (13:05)
[2020-05-07] MEDS ORDERED: AMITRIPTYLINE HCL 25 MG TAB PO SCH (21:00)
[2020-05-07] MEDS ORDERED: TEMAZEPAM 15 MG CAP PO SCH (21:00)
== END 2020-05-07 11:10 | disposition home or self-care (01) ==
LOC: FSED 23:09 → ERHOLD 05-07 00:14 → MED/SURG2 05-07 01:53
PROVIDERS: ADMIT Internal Medicine; ATTEND Internal Medicine
DX: T18.128A Food in esophagus causing other injury, initial encounter (principal); Z20.822 Contact with and (suspected) exposure to COVID-19; D68.9 Coagulation defect, unspecified; K22.2 Esophageal obstruction; K44.9 Diaphragmatic hernia without obstruction or gangrene; K20.90 Esophagitis, unspecified without bleeding
CPT/HCPCS: 36415; 43239; 80048; 80076; 85025; 88305; 88312; 93005; 99284; G0378; J1610; J2001; J2704; J7030; U0002

== ENCOUNTER 2021-12-25 13:36 | Observation (INO) | payer MEDICARE ==
[~2021-12-25] VITALS: Ht 180.3 cm; Wt 72.1 kg
[~2021-12-25 13:36] MED LIST changes: +AMITRIPTYLINE H25 MG PO; +ATENOLOL50 MG PO; +LORAZEPAM2 MG/1 M1 PO; +XARELTO20 MG PO
[2021-12-25 15:04] LABS: BASOPHILS # (AUTO) 0.1 (0.0-0.1); BASOPHILS % 0.9 % (0.0-1.0); EOSINOPHILS # (AUTO) 0.1 (0.0-0.4); EOSINOPHILS % 1.4 % (0.0-6.0); HEMATOCRIT 26.5 % (38.2-49.6); LYMPHOCYTES # (AUTO) 1.2 (1.0-3.2); LYMPHOCYTES % 16.6 % (18.0-39.1); MEAN CORPUSCULAR HEMOGLOBIN 23.3 pg (28-32); MEAN CORPUSCULAR HGB CONC 30.2 g/dL (31-35); MEAN CORPUSCULAR VOLUME 77.3 fL (81-99); MONOCYTES # (AUTO) 1.2 (0.2-0.8); MONOCYTES % 17.2 % (4.4-11.3); NEUTROPHILS # (AUTO) 4.4 (2.1-6.9); NEUTROPHILS % 63.6 % (38.7-80.0); PLATELET COUNT 453 x10e3/uL (140-360); RED BLOOD COUNT 3.43 x10e6/uL (4.3-5.7); RED CELL DISTRIBUTION WIDTH 16.5 % (11.7-14.4)
[2021-12-25 15:13] LABS: INR 2.47; PROTHROMBIN TIME 28.6 seconds (11.9-14.5)
[2021-12-25 15:14] LABS: PARTIAL THROMBOPLASTIN TIME 55.8 seconds (23.8-35.5)
[2021-12-25 15:17] LABS: ALANINE AMINOTRANSFERASE 11 IU/L (0-55); ALBUMIN 3.8 g/dL (3.5-5.0); ALBUMIN/GLOBULIN RATIO 1.2 (0.8-2.0); ALKALINE PHOSPHATASE 77 IU/L (40-150); ANION GAP 14.1 mmol/L (8-16); BLOOD UREA NITROGEN 21 mg/dL (7-26); BUN/CREATININE RATIO 18 (6-25); CALCIUM 8.8 mg/dL (8.4-10.2); CARBON DIOXIDE 29 mmol/L (22-29); CHLORIDE 100 mmol/L (98-107); CREATINE KINASE 58 IU/L (30-200); CREATININE, SERUM 1.15 mg/dL (0.72-1.25); GLUCOSE 115 mg/dL (74-118); MAGNESIUM 2.3 MG/DL (1.3-2.1); POTASSIUM 4.1 mmol/L (3.5-5.1); SODIUM 139 mmol/L (136-145)
[2021-12-25] MEDS ORDERED: SODIUM CHLORIDE 0.9% 1000ML 1,000 ML IV SCH (17:15)
[2021-12-25] MEDS ORDERED: ONDANSETRON HCL INJ 2MG/ML 2ML 2 MG/ML VIAL IV PRN ×2 (17:30→20:15)
[2021-12-25] MEDS ORDERED: ALBUTEROL/IPRATROPIUM 3 ML NEB NEB PRN (17:30)
[2021-12-25] MEDS ORDERED: SODIUM CHLORIDE 0.9% 250ML 250 ML IV ONE (18:00)
[2021-12-25] MEDS ORDERED: FUROSEMIDE INJ 10 MG/ML 2 ML VIAL IV PRN (18:00)
[2021-12-25] MEDS ORDERED: CLONIDINE HCL 0.1 MG TAB PO PRN (20:15)
[2021-12-25] MEDS ORDERED: LORAZEPAM 0.5 MG TAB PO PRN (20:15)
[2021-12-25] MEDS ORDERED: ACETAMINOPHEN 325 MG TAB PO PRN (20:15)
[2021-12-25] MEDS: DOCUSATE SODIUM 100 MG CAP PO SCH (20:20)
[2021-12-25 20:31] LABS: % IRON SATURATION 4 % (15-50); IRON 21 ug/dL (65-175); TOTAL IRON BINDING CAPACITY 487 ug/dL (261-478); TRANSFERRIN 348 mg/dL (174-364)
[2021-12-25] MEDS ORDERED: TEMAZEPAM 15 MG CAP PO SCH (21:00)
[2021-12-25] MEDS ORDERED: AMITRIPTYLINE HCL 25 MG TAB PO SCH (21:00)
[2021-12-25] MEDS: METOPROLOL TARTRATE 50 MG TAB PO SCH (21:20)
[2021-12-25] MEDS ORDERED: SODIUM CHLORIDE 0.9% 250ML 250 ML ONE (22:43)
[2021-12-26 07:29] LABS: BASOPHILS # (AUTO) 0.1 (0.0-0.1); BASOPHILS % 0.7 % (0.0-1.0); EOSINOPHILS # (AUTO) 0.2 (0.0-0.4); EOSINOPHILS % 2.2 % (0.0-6.0); HEMATOCRIT 30.6 % (38.2-49.6); HEMOGLOBIN 9.5 g/dL (14.0-18.0); LYMPHOCYTES # (AUTO) 1.8 (1.0-3.2); MEAN CORPUSCULAR HEMOGLOBIN 23.9 pg (28-32); MEAN CORPUSCULAR VOLUME 77.1 fL (81-99); MONOCYTES # (AUTO) 1.7 (0.2-0.8); MONOCYTES % 18.6 % (4.4-11.3); NEUTROPHILS # (AUTO) 5.2 (2.1-6.9); NEUTROPHILS % 58.3 % (38.7-80.0); PLATELET COUNT 435 x10e3/uL (140-360); RED BLOOD COUNT 3.97 x10e6/uL (4.3-5.7); RED CELL DISTRIBUTION WIDTH 16.1 % (11.7-14.4)
[2021-12-26] MEDS ORDERED: SODIUM CHLORIDE 0.9% 250ML 250 ML ONE (07:31)
[2021-12-26 07:56] LABS: CREATINE KINASE 44 IU/L (30-200)
[2021-12-26 08:18] LABS: ALBUMIN 3.6 g/dL (3.5-5.0); ALBUMIN/GLOBULIN RATIO 1.1 (0.8-2.0); ANION GAP 12.8 mmol/L (8-16); CALCIUM 8.4 mg/dL (8.4-10.2); CREATININE, SERUM 1.05 mg/dL (0.72-1.25); POTASSIUM 3.8 mmol/L (3.5-5.1)
[2021-12-26] MEDS: DOCUSATE SODIUM 100 MG CAP PO SCH (08:54)
[2021-12-26] MEDS: METOPROLOL TARTRATE 50 MG TAB PO SCH (08:54)
[2021-12-26] MEDS ORDERED: TAMSULOSIN HCL 0.4 MG CAP PO SCH (09:00)
[2021-12-26] MEDS ORDERED: PANTOPRAZOLE SOD 40 MG TABEC PO SCH (09:00)
[2021-12-26] MEDS ORDERED: IRON SUCROSE 100 MG in SODIUM CHLORIDE 0.9% 100 ML IV SCH (09:00)
[2021-12-26 11:52] VITALS: BP 134/80
== END 2021-12-29 21:00 | disposition home or self-care (01) ==
LOC: ER 14:39 → ERHOLD 17:38
PROVIDERS: ADMIT Internal Medicine; ATTEND Internal Medicine
DX: D50.9 Iron deficiency anemia, unspecified (principal); J44.9 Chronic obstructive pulmonary disease, unspecified; I11.0 Hypertensive heart disease with heart failure; I50.22 Chronic systolic (congestive) heart failure; N40.0 Benign prostatic hyperplasia without lower urinary tract symptoms; Z79.01 Long term (current) use of anticoagulants; D63.8 Anemia in other chronic diseases classified elsewhere; Z20.822 Contact with and (suspected) exposure to COVID-19; Z85.038 Personal history of other malignant neoplasm of large intestine; I48.21 Permanent atrial fibrillation
CPT/HCPCS: 0223U; 36415 ×2; 71045; 80053 ×2; 82270; 82550 ×2; 82553 ×2; 82607; 82746; 83540; 83735; 83880; 84466; 84484 ×2; 85025 ×2; 85610; 85730; 86850; 86900; 86920; 93005; 94799; 99284; C9113; G0378 ×5; J1756; J1940; J7030; J7050 ×3; P9016 ×2; S0164

== ENCOUNTER → 2022-10-05 | Outpatient (CLI) | payer MEDICARE ==
[2022-10-05 14:16] LABS: ABG HCO3 28 mmol/L (22-26); ABG PCO2 47 mmHg (35-45); ABG PH 7.38 (7.35-7.45); ABG PO2 69 mmHg (80-105); ABG TCO2 29
== END ==
LOC: RESP 13:31
PROVIDERS: ATTEND Internal Medicine
DX: J44.9 Chronic obstructive pulmonary disease, unspecified (principal)
CPT/HCPCS: 36415; 82805

== ENCOUNTER 2023-01-13 15:03 | Outpatient (RCR) | payer MEDICARE | END 2023-02-09 | LOC: RESP 15:03 | PROVIDERS: ATTEND Internal Medicine | DX: J44.9 Chronic obstructive pulmonary disease, unspecified (principal); R09.02 Hypoxemia | CPT/HCPCS: 94626 ×7; G0238 ×7 ==

== ENCOUNTER 2023-02-10 14:38 | Outpatient (RCR) | payer MEDICARE | END 2023-03-11 | LOC: RESP 14:38 | PROVIDERS: ATTEND Internal Medicine | DX: J44.9 Chronic obstructive pulmonary disease, unspecified (principal); R09.02 Hypoxemia | CPT/HCPCS: 94626 ×2; G0238 ×2 ==

== ENCOUNTER 2024-04-03 07:09 | Inpatient (IN) | payer MEDICARE ==
[2024-04-03] VITALS (12 sets, daily range): BP systolic 125–136; BP diastolic 64–76; PULSE 59–97; RESP 16–22; TEMP 97.5–98.1; O2SAT 95–100
[~2024-04-03] VITALS: Ht 180.3 cm; Wt 67.1 kg
[~2024-04-03 07:09] MED LIST changes: +CEPHALEXIN500 MG PO; +MIRALAX17 GM PO
[2024-04-03] MEDS: SODIUM CHLORIDE 0.9% 500ML 500 ML IV ONE (08:23)
[2024-04-03 08:33] LABS: BASOPHILS % 0.3 % (0.0-1.0); EOSINOPHILS # (AUTO) 0.2 (0.0-0.4); EOSINOPHILS % 1.5 % (0.0-6.0); HEMATOCRIT 36.4 % (38.2-49.6); HEMOGLOBIN 11.9 g/dL (14.0-18.0); LYMPHOCYTES % 10.3 % (18.0-39.1); MEAN CORPUSCULAR HGB CONC 32.7 g/dL (31-35); MEAN CORPUSCULAR VOLUME 91.7 fL (81-99); MONOCYTES # (AUTO) 1.6 (0.2-0.8); MONOCYTES % 16.2 % (4.4-11.3); NEUTROPHILS # (AUTO) 6.9 (2.1-6.9); NEUTROPHILS % 70.9 % (38.7-80.0); PLATELET COUNT 403 x10e3/uL (140-360); RED BLOOD COUNT 3.97 x10e6/uL (4.3-5.7); RED CELL DISTRIBUTION WIDTH 14.1 % (11.7-14.4); WHITE BLOOD COUNT 9.75 x10e3/uL (4.8-10.8)
[2024-04-03] MEDS: METOPROLOL TARTRATE 25 MG TAB PO ONE (08:39)
[2024-04-03 08:49] LABS: INFLUENZA A AG NEGATIVE (NEGATIVE); INFLUENZA B AG NEGATIVE (NEGATIVE)
[2024-04-03 08:50] LABS: CORONAVIRUS COVID-19 AG NEGATIVE (NEGATIVE)
[2024-04-03 08:55] LABS: BILIRUBIN,URINE SMALL (NEGATIVE); CLARITY,URINE SL CLOUDY (CLEAR); COLOR,URINE YELLOW (YELLOW); GLUCOSE, URINE NEGATIVE (NEGATIVE); KETONES,URINE 1+ (NEGATIVE); LEUKOCYTE ESTERASE ,URINE SMALL (NEGATIVE); NITRITE,URINE NEGATIVE (NEGATIVE); PH,URINE 6 (5 - 7); PROTEIN,URINE DIPSTICK 2+ (NEGATIVE); URINE UROBILINOGEN 1 mg/dL (0.2 - 1)
[2024-04-03 08:55] LABS: INR 1.13; PARTIAL THROMBOPLASTIN TIME 37.4 seconds (23.8-35.5); PROTHROMBIN TIME 15.2 seconds (11.9-14.5)
[2024-04-03 09:05] LABS: ALBUMIN 2.8 g/dL (3.5-5.0); ALBUMIN/GLOBULIN RATIO 0.8 (0.8-2.0); BILIRUBIN,TOTAL 1.2 mg/dL (0.2-1.2); CALCIUM 8.8 mg/dL (8.4-10.2); CREATININE, SERUM 1.01 mg/dL (0.72-1.25); MAGNESIUM 1.8 MG/DL (1.3-2.1); TOTAL PROTEIN 6.4 g/dL (6.5-8.1)
[2024-04-03 09:08] LABS: BACTERIA,URINE MODERATE /HPF; EPITHELIAL CELLS,URINE RARE /LPF; RBC,URINE >50 /HPF (0-5)
[2024-04-03 09:11] LABS: TROPONIN I 0.02 ng/mL (0-0.300)
[2024-04-03] MEDS ORDERED: ONDANSETRON HCL INJ 2MG/ML 2ML 2 MG/ML VIAL IV PRN (09:15)
[2024-04-03] MEDS: SODIUM CHLORIDE 0.9% 1000ML 1,000 ML IV ONE (09:25)
[2024-04-03] MEDS: Vancomycin IV 1 GM in SODIUM CHLORIDE 0.9% 250ML 250 ML IV ONE (09:57)
[2024-04-03] MEDS ORDERED: GUAIFENESIN/DEXTROMETHORPHAN LIQD 5 ML UDC PO PRN (12:30)
[2024-04-03] MEDS ORDERED: DOCUSATE SODIUM 100 MG CAP PO PRN (12:30)
[2024-04-03] MEDS ORDERED: MAGNESIUM/ALUMINUM/SIMETHICONE 30 ML UDC PO PRN (12:30)
[2024-04-03] MEDS ORDERED: ALBUTEROL SULF 0.083% NEB SOLN 3 ML NEB NEB PRN (12:30)
[2024-04-03] MEDS ORDERED: ACETAMINOPHEN 325 MG TAB PO PRN (12:30)
[2024-04-03] MEDS ORDERED: HYDRALAZINE HCL 20 MG/ML VIAL IV PRN (12:30)
[2024-04-03 13:06] LABS: ABG HCO3 25 mmol/L (22-26); ABG PCO2 35 mmHg (35-45); ABG PH 7.45 (7.35-7.45); ABG PO2 135 mmHg (80-105); ABG TCO2 26
[2024-04-03] MEDS: IPRATROPIUM BROMIDE 0.02% 2.5 ML NEB NEB SCH (14:20)
[2024-04-03] MEDS ORDERED: LASIX20 MG PO (15:19)
[2024-04-03] MEDS ORDERED: ATORVASTATIN CA10 MG PO (15:19)
[2024-04-03] MEDS ORDERED: METOPROLOL SUCC50 MG PO (15:19)
[2024-04-03] MEDS ORDERED: DIGOXIN125 MCG PO (15:19)
[2024-04-03] MEDS ORDERED: LOSARTAN POTASS25 MG PO (15:22)
[2024-04-03] MEDS ORDERED: PHENAZOPYRIDINE HCL 100 MG TAB PO PRN (17:15)
[2024-04-03] MEDS: BUDESONIDE 0.5MG/2 ML NEB INH SCH (19:06)
[2024-04-03] MEDS: ATORVASTATIN 10 MG TAB PO SCH (21:39)
[2024-04-03] MEDS: TAMSULOSIN HCL 0.4 MG CAP PO SCH (21:40)
[2024-04-04] VITALS (10 sets, daily range): BP systolic 118–153; BP diastolic 65–80; PULSE 79–106; RESP 17–21; TEMP 95.7–98.2; O2SAT 94–100
[2024-04-04 05:27] LABS: BASOPHILS % 0.4 % (0.0-1.0); EOSINOPHILS # (AUTO) 0.1 (0.0-0.4); EOSINOPHILS % 1.2 % (0.0-6.0); HEMATOCRIT 34.6 % (38.2-49.6); HEMOGLOBIN 10.9 g/dL (14.0-18.0); LYMPHOCYTES # (AUTO) 0.8 (1.0-3.2); LYMPHOCYTES % 7.4 % (18.0-39.1); MEAN CORPUSCULAR HEMOGLOBIN 29.9 pg (28-32); MEAN CORPUSCULAR HGB CONC 31.5 g/dL (31-35); MEAN CORPUSCULAR VOLUME 95.1 fL (81-99); MONOCYTES # (AUTO) 1.4 (0.2-0.8); MONOCYTES % 13.1 % (4.4-11.3); NEUTROPHILS # (AUTO) 8.4 (2.1-6.9); NEUTROPHILS % 77.3 % (38.7-80.0); PLATELET COUNT 376 x10e3/uL (140-360); RED BLOOD COUNT 3.64 x10e6/uL (4.3-5.7); RED CELL DISTRIBUTION WIDTH 14.1 % (11.7-14.4); WHITE BLOOD COUNT 10.88 x10e3/uL (4.8-10.8)
[2024-04-04 06:22] LABS: ALBUMIN 2.5 g/dL (3.5-5.0); ALBUMIN/GLOBULIN RATIO 0.8 (0.8-2.0); ANION GAP 12.7 mmol/L (8-16); BILIRUBIN,TOTAL 0.9 mg/dL (0.2-1.2); CALCIUM 8.1 mg/dL (8.4-10.2); CREATININE, SERUM 0.83 mg/dL (0.72-1.25); POTASSIUM 3.7 mmol/L (3.5-5.1); TOTAL PROTEIN 5.6 g/dL (6.5-8.1)
[2024-04-04] MEDS: PANTOPRAZOLE SOD 40 MG TABEC PO SCH (07:30)
[2024-04-04] MEDS ORDERED: PROPOFOL IV EMULSION 10 MG/ML 20 ML VIAL ONE (08:16)
[2024-04-04] MEDS ORDERED: SEVOFLURANE INHAL SOLN 250 ML PEN BTL ONE (08:16)
[2024-04-04] MEDS ORDERED: ROCURONIUM BROMIDE 1 ML IV ONE (08:17)
[2024-04-04] MEDS: METOPROLOL SUCCINATE 50 MG TAB XL PO SCH (09:00)
[2024-04-04] MEDS: LOSARTAN POTASSIUM 25 MG TAB PO SCH (09:00)
[2024-04-04] MEDS ORDERED: MULTIVITAMINS/MINERALS TAB PO SCH (09:00)
[2024-04-04] MEDS: DIGOXIN 0.125 MG TAB PO SCH (09:00)
[2024-04-04] MEDS ORDERED: DEXAMETHASONE SOD PHOS INJ 4 MG/ML SDV ONE (09:15)
[2024-04-04] MEDS ORDERED: ACETAMINOPHEN 1000 MG/100 ML 100 ML IV ONE (09:15)
[2024-04-04] MEDS ORDERED: ONDANSETRON HCL INJ 2MG/ML 2ML 2 MG/ML VIAL ONE (09:15)
[2024-04-04] MEDS ORDERED: ESMOLOL HCL 100MG/10ML 10 MG/ML VIAL ONE (09:26)
[2024-04-04] MEDS ORDERED: SODIUM CHLORIDE 0.9% 100 ML ONE (09:34)
[2024-04-04] MEDS ORDERED: DEXMEDETOMIDINE HCL 2 ML ONE (09:34)
[2024-04-04] MEDS ORDERED: METOPROLOL TARTRATE INJ 1 MG/ML VIAL ONE (09:37)
[2024-04-04] MEDS ORDERED: GLYCOPYRROLATE INJ 0.2 MG/ML VIAL ONE (09:50)
[2024-04-04] MEDS ORDERED: NEOSTIGMINE 1 MG/ML 10ML VIAL ONE (09:50)
[2024-04-04] MEDS ORDERED: DIPHENHYDRAMINE HCL 25 MG CAP PO PRN (10:30)
[2024-04-04] MEDS ORDERED: PHENAZOPYRIDINE HCL 100 MG TAB PO PRN (10:30)
[2024-04-04] MEDS ORDERED: ACETAMINOPHEN 1000 MG/100 ML IV PRN (10:30)
[2024-04-04] MEDS ORDERED: ACETAMINOPHEN/CODEINE 300MG - 30MG TAB PO PRN (10:30)
[2024-04-04 10:48] LABS: BASOPHILS # (AUTO) 0.1 (0.0-0.1); BASOPHILS % 0.4 % (0.0-1.0); EOSINOPHILS # (AUTO) 0.1 (0.0-0.4); EOSINOPHILS % 0.8 % (0.0-6.0); HEMATOCRIT 36.3 % (38.2-49.6); HEMOGLOBIN 11.2 g/dL (14.0-18.0); LYMPHOCYTES # (AUTO) 0.7 (1.0-3.2); LYMPHOCYTES % 4.3 % (18.0-39.1); MEAN CORPUSCULAR HEMOGLOBIN 30.1 pg (28-32); MEAN CORPUSCULAR HGB CONC 30.9 g/dL (31-35); MEAN CORPUSCULAR VOLUME 97.6 fL (81-99); MONOCYTES # (AUTO) 1.2 (0.2-0.8); MONOCYTES % 7.2 % (4.4-11.3); NEUTROPHILS # (AUTO) 14.7 (2.1-6.9); NEUTROPHILS % 86.9 % (38.7-80.0); PLATELET COUNT 342 x10e3/uL (140-360); RED BLOOD COUNT 3.72 x10e6/uL (4.3-5.7); RED CELL DISTRIBUTION WIDTH 14.2 % (11.7-14.4); WHITE BLOOD COUNT 16.85 x10e3/uL (4.8-10.8)
[2024-04-04 11:15] LABS: CREATININE, SERUM 0.81 mg/dL (0.72-1.25)
[2024-04-04] MEDS ORDERED: FENTANYL CITRATE/PF 100MCG/2 ML INJ ONE (11:16)
[2024-04-04] MEDS: SODIUM CHLORIDE 0.9% 1000ML 1,000 ML IV SCH (12:16)
[2024-04-05 05:52] LABS: BASOPHILS % 0.2 % (0.0-1.0); EOSINOPHILS % 0.2 % (0.0-6.0); HEMATOCRIT 32.3 % (38.2-49.6); HEMOGLOBIN 10.7 g/dL (14.0-18.0); LYMPHOCYTES # (AUTO) 0.7 (1.0-3.2); LYMPHOCYTES % 5.9 % (18.0-39.1); MEAN CORPUSCULAR HEMOGLOBIN 30.2 pg (28-32); MEAN CORPUSCULAR HGB CONC 33.1 g/dL (31-35); MONOCYTES # (AUTO) 1.3 (0.2-0.8); MONOCYTES % 10.9 % (4.4-11.3); NEUTROPHILS # (AUTO) 10.1 (2.1-6.9); NEUTROPHILS % 82.2 % (38.7-80.0); PLATELET COUNT 380 x10e3/uL (140-360); RED BLOOD COUNT 3.54 x10e6/uL (4.3-5.7); RED CELL DISTRIBUTION WIDTH 14.2 % (11.7-14.4); WHITE BLOOD COUNT 12.22 x10e3/uL (4.8-10.8)
[2024-04-05 06:06] LABS: MEAN CORPUSCULAR VOLUME 91.2 fL (81-99)
[2024-04-05 06:18] LABS: CALCIUM 7.9 mg/dL (8.4-10.2); CREATININE, SERUM 0.81 mg/dL (0.72-1.25)
[2024-04-05 08:00] VITALS: BP 133/73; PULSE 93; RESP 18; TEMP 97.8; O2SAT 100
[2024-04-05 08:03] VITALS: PULSE 92; RESP 17; O2SAT 96
[2024-04-05 10:52] VITALS: PULSE 89; RESP 17; O2SAT 98
[2024-04-05 19:45] VITALS: PULSE 93; RESP 17; O2SAT 95
[2024-04-05 20:00] VITALS: BP_SYST 134; BP_SYST 156; BP_DIAS 64; BP_DIAS 67; PULSE 85; PULSE 98; RESP 20; TEMP 97.5; TEMP 97.9; O2SAT 95; O2SAT 97
[2024-04-05 21:00] VITALS: BP 134/64; PULSE 92; RESP 20; TEMP 97.9; O2SAT 99
[2024-04-06] MEDS: MELATONIN 3 MG TAB PO PRN (00:43)
[2024-04-06 05:00] VITALS: BP 123/71; PULSE 85; RESP 20; TEMP 97.5; O2SAT 96
[2024-04-06 05:27] LABS: BASOPHILS # (AUTO) 0.1 (0.0-0.1); BASOPHILS % 0.4 % (0.0-1.0); EOSINOPHILS # (AUTO) 0.2 (0.0-0.4); EOSINOPHILS % 1.9 % (0.0-6.0); HEMATOCRIT 32.9 % (38.2-49.6); HEMOGLOBIN 10.3 g/dL (14.0-18.0); LYMPHOCYTES # (AUTO) 1.3 (1.0-3.2); LYMPHOCYTES % 10.9 % (18.0-39.1); MEAN CORPUSCULAR HEMOGLOBIN 30.4 pg (28-32); MEAN CORPUSCULAR HGB CONC 31.3 g/dL (31-35); MEAN CORPUSCULAR VOLUME 97.1 fL (81-99); MONOCYTES # (AUTO) 1.3 (0.2-0.8); NEUTROPHILS # (AUTO) 8.9 (2.1-6.9); NEUTROPHILS % 75.2 % (38.7-80.0); PLATELET COUNT 333 x10e3/uL (140-360); RED BLOOD COUNT 3.39 x10e6/uL (4.3-5.7); RED CELL DISTRIBUTION WIDTH 14.6 % (11.7-14.4); WHITE BLOOD COUNT 11.86 x10e3/uL (4.8-10.8)
[2024-04-06 06:15] LABS: ANION GAP 11.5 mmol/L (8-16); CALCIUM 8.1 mg/dL (8.4-10.2); CREATININE, SERUM 0.8 mg/dL (0.72-1.25); POTASSIUM 3.5 mmol/L (3.5-5.1)
[2024-04-06 07:10] VITALS: PULSE 92; RESP 20; O2SAT 98
[2024-04-06 08:00] VITALS: BP 122/70; PULSE 86; RESP 18; TEMP 97.9
[2024-04-06] MEDS: LOSARTAN POTASSIUM 25 MG TAB PO SCH (08:26)
[2024-04-06 08:40] VITALS: BP 122/70; PULSE 86; RESP 20; TEMP 97.5; O2SAT 100
[2024-04-06] MEDS ORDERED: CEFPODOXIME PR100 MG PO (12:22)
[2024-04-06 13:42] VITALS: PULSE 88; RESP 20; O2SAT 100
[2024-04-06 13:54] VITALS: PULSE 88; RESP 20; O2SAT 100
[2024-04-06] MEDS ORDERED: ONDANSETRON HCL 4 MG ORAL DISINTEGRATING TAB PO PRN (15:15)
[2024-04-06 16:30] LABS: ABG HCO3 25 mmol/L (22-26); ABG PCO2 35 mmHg (35-45); ABG PH 7.45 (7.35-7.45); ABG PO2 135 mmHg (80-105); ABG TCO2 26
== END 2024-04-06 17:25 | disposition home health service (06) | DRG 666 ==
LOC: ER 07:15 → ERHOLD 09:13 → MED/SURG2 10:15
PROVIDERS: ADMIT Internal Medicine; ATTEND Internal Medicine
PROC: 4A033R1 Measurement of Arterial Saturation, Peripheral, Percutaneous Approach (ICD-10-PCS; 2024-04-03)
PROC: 4A033R1 Measurement of Arterial Saturation, Peripheral, Percutaneous Approach (ICD-10-PCS; 2024-04-03)
PROC: BT101ZZ Fluoroscopy of Bladder using Low Osmolar Contrast (ICD-10-PCS; 2024-04-04)
PROC: 0V508ZZ Destruction of Prostate, Via Natural or Artificial Opening Endoscopic (ICD-10-PCS; principal; 2024-04-04 08:58)
PROC: BT141ZZ Fluoroscopy of Kidneys, Ureters and Bladder using Low Osmolar Contrast (ICD-10-PCS; 2024-04-04 08:58)
DX: T83.511A Infection and inflammatory reaction due to indwelling urethral catheter, initial encounter (principal); D68.9 Coagulation defect, unspecified; I48.20 Chronic atrial fibrillation, unspecified; N13.8 Other obstructive and reflux uropathy; N39.0 Urinary tract infection, site not specified; N40.1 Benign prostatic hyperplasia with lower urinary tract symptoms; R33.8 Other retention of urine; R31.29 Other microscopic hematuria; N50.0 Atrophy of testis; N32.3 Diverticulum of bladder; I11.0 Hypertensive heart disease with heart failure; I50.9 Heart failure, unspecified; J44.9 Chronic obstructive pulmonary disease, unspecified; Z99.81 Dependence on supplemental oxygen; R62.7 Adult failure to thrive; N47.1 Phimosis; Z71.3 Dietary counseling and surveillance; Z68.20 Body mass index [BMI] 20.0-20.9, adult; R53.1 Weakness; R53.81 Other malaise; R09.02 Hypoxemia; D64.9 Anemia, unspecified; Z11.52 Encounter for screening for COVID-19; Z87.891 Personal history of nicotine dependence; Y84.6 Urinary catheterization as the cause of abnormal reaction of the patient, or of later complication, without mention of misadventure at the time of the procedure; Z95.818 Presence of other cardiac implants and grafts; Z85.038 Personal history of other malignant neoplasm of large intestine; Z90.49 Acquired absence of other specified parts of digestive tract; Z79.899 Other long term (current) drug therapy; Y92.009 Unspecified place in unspecified non-institutional (private) residence as the place of occurrence of the external cause; Z90.79 Acquired absence of other genital organ(s)
CPT/HCPCS: 36415; 36600; 71045; 74420; 80048; 80053; 81001; 82550; 82805; 83735; 83880; 84484; 85025; 85610; 85730; 87040; 87086; 93005; 94640; 94799; 99284; J0692; J0696; J1100; J2405; J2710; J7030; J7040; J7050

== ENCOUNTER 2024-08-20 04:35 | Emergency (ER) | payer MEDICARE ==
[~2024-08-20] VITALS: Ht 180.3 cm; Wt 67.1 kg
[~2024-08-20 04:35] MED LIST changes: +ATORVASTATIN CA10 MG PO; +CEFPODOXIME PR100 MG PO; +DIGOXIN125 MCG PO; +LASIX20 MG PO; +LOSARTAN POTASS25 MG PO; +METOPROLOL SUCC50 MG PO
[2024-08-20 04:56] VITALS: TEMP 98.8
[2024-08-20] MEDS: FLUORESCEIN SOD(OPTH) 1 MG STRP OP ONE (05:32)
[2024-08-20] MEDS: TETRACAINE HCL 0.5% OPTH SOLN 4 ML BTL OP ONE (05:34)
[2024-08-20 05:51] VITALS: PULSE 86; RESP 18; O2SAT 98
== END 2024-08-20 05:57 | disposition home or self-care (01) ==
LOC: ER 04:41
DX: H57.11 Ocular pain, right eye (principal); I10 Essential (primary) hypertension; J44.9 Chronic obstructive pulmonary disease, unspecified; I50.9 Heart failure, unspecified; I48.91 Unspecified atrial fibrillation; Z85.038 Personal history of other malignant neoplasm of large intestine
CPT/HCPCS: 99282